=== PATIENT | male | born 1955 | race Caucasian/White ===

== ENCOUNTER 2018-05-07 11:07 | Emergency (ER) | payer MEDICARE, OTHER ==
[2018-05-07 11:16] VITALS: RESP 18
--- NOTE | 2018-05-07 11:17 | ED ---
Male Urogenital HPI - General Chief complaint: Urogenital Stated complaint: Male Time Seen by Provider: 05/07/18 11:13 Source: patient, RN notes reviewed, old records reviewed Mode of arrival: EMS - History of Present Illness Initial comments: This is a 63-year-old male the ER for evaluation patient presents ER for evaluation of blood in the urine. Patient does have history of MS with need for straight catheterization. He states that an every day think there is occasional occasions when his MS acts up or he thinks may be medication related. He denies any specific abdominal pain currently, he was straight cathetered today and had significant amount of blood in the urine, patient is on Plavix. Patient takes no other blood thinners. I without pain. He states he was able to urinate by himself prior to arrival in the emergency room MD Complaint: dysuria, other (Hematuria) -: hour(s) (1) Location: abdomen (With inability to urinate) Radiation: none Severity: mild Severity scale (1-10): 4 Quality: aching Improves with: urination Worsens with: none new medication Reports: denies other symptoms - Related Data Home Medications Medication Instructions Recorded Confirmed Atenolol [Tenormin] 25 mg PO BID 08/10/14 10/21/15 Clopidogrel [Plavix] 75 mg PO DAILY 08/10/14 10/21/15 Glatiramer Acetate [Copaxone] 40 mg SQ MOWEFR 08/10/14 10/21/15 Lisinopril [Zestril] 10 mg PO QAM 08/10/14 10/21/15 Simvastatin [Zocor] 20 mg PO HS 08/10/14 10/21/15 Finasteride [Proscar] 5 mg PO QAM 09/27/14 10/21/15 HYDROcodone/APAP 10-325MG [[place]udson 1 tab PO Q6H PRN 09/27/14 10/21/15 10-325] Aspirin 81 mg PO DAILY 10/21/15 10/21/15 Calcium Carbonate/Vitamin D3 1 tab PO DAILY 10/21/15 10/21/15 [Calcium 600-Vit D3 400 Tablet] Cholecalciferol [Vitamin D3] 1,000 unit PO DAILY 10/21/15 10/21/15 Dalfampridine [Ampyra] 10 mg PO Q12H 10/21/15 10/21/15 Previous Rx's Medication Instructions Recorded HYDROcodone/APAP 10-325MG [[place] 1 each PO Q6H PRN #10 tab 10/24/15 10-325] Ipratropium-Albuterol Nebulize 3 ml INHALATION RT-Q2H PRN #0 10/24/15 [Duoneb 0.5 mg-3 mg/3 ml Soln] ampul.neb Ipratropium-Albuterol Nebulize 3 ml INHALATION RT-QID ampul.neb 10/24/15 [Duoneb 0.5 mg-3 mg/3 ml Soln] Levofloxacin [Levaquin] 500 mg PO DAILY #7 tab 10/24/15 Nicotine 14Mg/24Hr Patch [Habitrol] 1 patch TRANSDERM DAILY patch 10/24/15 Tamsulosin HCl [Flomax] 0.4 mg PO HS #0 10/24/15 metFORMIN HCL [Glucophage Xr] 500 mg PO BID #0 10/24/15 predniSONE 10 mg PO DAILY #30 tab 10/24/15 Allergies Allergy/AdvReac Type Severity Reaction Status Date / Time ibuprofen AdvReac Nausea Verified 10/21/15 14:44 Review of Systems ROS Statement: Those systems with pertinent positive or pertinent negative responses have been documented in the HPI. ROS Other: All systems not noted in ROS Statement are negative. 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 Last Myocardial Infarction Date:: 2004 History of Any Multi-Drug Resistant Organisms: None Reported Past Surgical History: Heart Catheterization With Stent, Prostate Surgery Additional Past Surgical History / Comment(s): 2005 PTCA with 3 stents, laser cystoscopy/litotripsy with double J catheter insertion and eventual removal, cystoscopy/TURP, hemorhoids, L carpal tunnel release, colonoscopy, circumcism. Past Anesthesia/Blood Transfusion Reactions: No Reported Reaction Additional Past Anesthesia/Blood Transfusion Reaction / Comment(s): Pt states he has never received blood. Date of Last Stent Placement:: 2004 Past Psychological History: No Psychological Hx Reported Smoking Status: Current every day smoker - Past Family History Father Family Medical History: Cancer Additional Family Medical History / Comment(s): Father of leukemia at the age of 40 yrs. Mother Family Medical History: Diabetes Mellitus Additional Family Medical History / Comment(s): Mother is 83 yrs old. General Exam General appearance: alert, in no apparent distress Head exam: Present: atraumatic, normocephalic, normal inspection Eye exam: Present: normal appearance, PERRL, EOMI. Absent: scleral icterus, conjunctival injection, periorbital swelling ENT exam: Present: normal exam, mucous membranes moist Neck exam: Present: normal inspection. Absent: tenderness, meningismus, lymphadenopathy Respiratory exam: Present: normal lung sounds bilaterally. Absent: respiratory distress, wheezes, rales, rhonchi, stridor Cardiovascular Exam: Present: regular rate, normal rhythm, normal heart sounds. Absent: systolic murmur, diastolic murmur, rubs, gallop, clicks GI/Abdominal exam: Present: soft, normal bowel sounds. Absent: distended, tenderness, guarding, rebound, rigid Extremities exam: Present: normal inspection, full ROM, normal capillary refill. Absent: tenderness, pedal edema, joint swelling, calf tenderness Back exam: Present: normal inspection Neurological exam: Present: alert, oriented X3, CN II-XII intact Psychiatric exam: Present: normal affect, normal mood Skin exam: Present: warm, dry, intact, normal color. Absent: rash Course Vital Signs 05/07/18 11:10 Temperature 97.6 F Pulse Rate 68 Respiratory 18 Rate Blood Pressure 137/75 O2 Sat by Pulse 97 Oximetry - Reevaluation(s) Reevaluation #1: 05/07/18 11:55 Patient has medical history that is reviewed Patient is catheterized here in the ER Reevaluation #2: 05/07/18 12:42 A she catheterized here without incident, Payton was placed no significant output about 200cc , patient has no pain , no blood, Medical Decision Making - Medical Decision Making 61 female the ER for evaluation of hematuria. No UTI, no blood in the urine currently. No abdominal pain. No significant retention. Patient can be discharged home to continue follow-up appointment with urology on Tuesday Disposition Clinical Impression: Payton catheter problem, Urinary retention, Hematuria Disposition: HOME SELF-CARE Condition: Good Instructions: Hematuria (ED), Urinary Retention in Men (ED) Is patient prescribed a controlled substance at d/c from ED?: No Referrals: Logan Brumfield MD [Primary Care Provider] - 1-2 days
[2018-05-07 12:44] LABS: Appearance,Urine Cloudy (Clear); Bacteria,Urine Rare /hpf; Bilirubin,Urine Negative (Negative); Blood,Urine Large (Negative); Color,Urine Yellow; Glucose,Urine (UA) 4+ (Negative); Ketones,Urine Negative (Negative); Leukocyte Esterase,Urine Large (Negative); Mucus,Urine Rare /hpf; Nitrite,Urine Negative (Negative); PH, Urine 7.5 (5.0-8.0); Protein,Urine 1+ (Negative); RBC,Urine >182 /hpf (0-5); Squamous Epithelial Cell,Urine <1 /hpf (0-4); Urobilinogen,Urine <2.0 mg/dL (<2.0); WBC,Urine >182 /hpf (0-5)
[2018-05-07] MEDS ORDERED: CEPHALEXIN 500 MG CAP PO STA (12:54)
[2018-05-07] MEDS ORDERED: CEPHALEXIN 500MG STARTER PACK 4 CAP BTL PO STA (12:54)
[2018-05-07] MEDS ORDERED: CIPROFLOXACIN HCL 500 MG TAB PO STA (12:55)
[2018-05-07 13:29] VITALS: BP 124/75; PULSE 65; TEMP 97.9
== END 2018-05-07 14:27 | disposition home or self-care (01) ==
LOC: EC 11:07
DX: T83.83XA Hemorrhage due to genitourinary prosthetic devices, implants and grafts, initial encounter (principal); R31.9 Hematuria, unspecified; E78.5 Hyperlipidemia, unspecified; G35 Multiple sclerosis; G89.29 Other chronic pain; I10 Essential (primary) hypertension; I25.2 Old myocardial infarction; M19.90 Unspecified osteoarthritis, unspecified site; F17.200 Nicotine dependence, unspecified, uncomplicated; Z79.82 Long term (current) use of aspirin; Z79.899 Other long term (current) drug therapy; Z79.02 Long term (current) use of antithrombotics/antiplatelets; Z88.6 Allergy status to analgesic agent; Z87.440 Personal history of urinary (tract) infections; Z87.442 Personal history of urinary calculi; Z87.438 Personal history of other diseases of male genital organs; Z95.5 Presence of coronary angioplasty implant and graft; Z99.3 Dependence on wheelchair; Z98.890 Other specified postprocedural states; Y83.8 Other surgical procedures as the cause of abnormal reaction of the patient, or of later complication, without mention of misadventure at the time of the procedure
CPT/HCPCS: 51702; 51798; 81001; 87077; 87086; 87186; 99285

== ENCOUNTER 2018-05-22 02:43 | Inpatient (IN) | payer MEDICARE, OTHER ==
--- NOTE | 2018-05-22 02:57 | ED ---
General Adult HPI - General Chief complaint: Urogenital Stated complaint: Abd Pain Time Seen by Provider: 05/22/18 02:54 Source: patient, EMS Mode of arrival: EMS Limitations: no limitations - History of Present Illness Initial comments: 63-year-old male past medical history of multiple sclerosis- wheelchair-bound with no use of lower extremities, [id number] diabetes, history of prostate obstruction history of urinary retention has a chronic Payton with history of chronic UTIs presenting today for chief complaint of bladder pressure /pain x 2-3 days. Patient states that he was recently diagnosed with a urinary tract infection and a set of having indwelling Payton catheter, he has been straight cathed the past 2-3 days. Patient states every time history is is straight cathed he experiences midline bladder pressure and pain. Patient states that today the pain increased and appeared more constant following the straight catheterization. Patient states the pain is midline lower pelvic at the area of the bladder. It is tender to palpation. Patient states that is better in certain positions including with the right leg bent toward chest. Due to severity of pain patient was transferred via EMS from [facility] where he resides is a permanent resident. Upon arrival patient vital signs stable, afebrile. - Related Data Home Medications Medication Instructions Recorded Confirmed Atenolol [Tenormin] 25 mg PO DAILY@0600 08/10/14 05/22/18 Clopidogrel [Plavix] 75 mg PO DAILY@0600 08/10/14 05/22/18 Glatiramer Acetate [Copaxone] 40 mg SQ MOWEFR@1700 08/10/14 05/22/18 Finasteride [Proscar] 5 mg PO DAILY@0600 09/27/14 05/22/18 Acetaminophen Tab [Tylenol Tab] 500 mg PO Q6H PRN 05/22/18 05/22/18 Acetaminophen [Tylenol Arthritis] 650 mg PO DAILY@1100 05/22/18 05/22/18 Aspirin 81 mg PO HS 05/22/18 05/22/18 Baclofen (Unknown Dose) 1 tab PO HS 05/22/18 05/22/18 Bisacodyl [Dulcolax] 10 mg RECTAL Q72H PRN 05/22/18 05/22/18 Calcium Carbonate/Vitamin D3 1 tab PO HS 05/22/18 05/22/18 [Calcium 600-Vit D3 200 Tablet] Cholecalciferol (Vitamin D3) 2,000 unit PO DAILY 05/22/18 05/22/18 [Vitamin D3] Citalopram Hydrobromide [CeleXA] 10 mg PO DAILY@0600 05/22/18 05/22/18 Insulin Detemir [Levemir] 20 unit SQ HS 05/22/18 05/22/18 Insulin Detemir [Levemir] 30 unit SQ DAILY 05/22/18 05/22/18 Ipratropium-Albuterol Nebulize 3 ml INHALATION RT-Q2H PRN 05/22/18 05/22/18 [Duoneb 0.5 mg-3 mg/3 ml Soln] Lisinopril [Prinivil] 5 mg PO DAILY@0600 05/22/18 05/22/18 Mylanta 20 ml PO Q4H PRN 05/22/18 05/22/18 Naproxen Sodium [Aleve] 220 mg PO BID@0600,1800 05/22/18 05/22/18 Omeprazole 20 mg PO DAILY 05/22/18 05/22/18 Point Relief Gel 1 applic TOPICAL QID PRN 05/22/18 05/22/18 Pravastatin Sodium [Pravachol] 40 mg PO HS 05/22/18 05/22/18 Sennosides/Docusate Sodium 1 tab PO DAILY@0630 05/22/18 05/22/18 [Senna-S Laxative Tablet] Tamsulosin HCl [Flomax] 0.4 mg PO BID 05/22/18 05/22/18 Triamcinolone 0.5% Cream [Kenalog 1 applic TOPICAL BID 05/22/18 05/22/18 0.5% Cream] metFORMIN HCL [Glucophage Xr] 1,000 mg PO DAILY@0600 05/22/18 05/22/18 Allergies Allergy/AdvReac Type Severity Reaction Status Date / Time ibuprofen AdvReac Nausea Verified 05/22/18 06:51 Review of Systems ROS Statement: Those systems with pertinent positive or pertinent negative responses have been documented in the HPI. ROS Other: All systems not noted in ROS Statement are negative. Constitutional: Denies: fever, chills, night sweats ENT: Denies: ear pain, throat pain Respiratory: Denies: cough, dyspnea, wheezes, hemoptysis, stridor Cardiovascular: Denies: chest pain, palpitations Endocrine: Denies: fatigue Gastrointestinal: Reports: abdominal pain. Denies: nausea, vomiting, diarrhea, constipation, hematemesis, melena, hematochezia Genitourinary: Reports: hematuria (noted darker urine than normal). 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 Last Myocardial Infarction Date:: 2004 History of Any Multi-Drug Resistant Organisms: None Reported Past Surgical History: Heart Catheterization With Stent, Prostate Surgery Additional Past Surgical History / Comment(s): 2005 PTCA with 3 stents, laser cystoscopy/litotripsy with double J catheter insertion and eventual removal, cystoscopy/TURP, hemorhoids, L carpal tunnel release, colonoscopy, circumcism. Past Anesthesia/Blood Transfusion Reactions: No Reported Reaction Additional Past Anesthesia/Blood Transfusion Reaction / Comment(s): Pt states he has never received blood. Date of Last Stent Placement:: 2004 Past Psychological History: No Psychological Hx Reported Smoking Status: Current every day smoker - Past Family History Father Family Medical History: Cancer Additional Family Medical History / Comment(s): Father of leukemia at the age of 40 yrs. Mother Family Medical History: Diabetes Mellitus Additional Family Medical History / Comment(s): Mother is 83 yrs old. General Exam - General Exam Comments Initial Comments: General: The patient is awake and alert, in no distress, and does not appear acutely ill. Eye: Pupils are equal, round and reactive to light, extra-ocular movements are intact. No nystagmus. There is normal conjunctiva bilaterally. No signs of icterus. Ears, nose, mouth and throat: There are moist mucous membranes and no oral lesions. Neck: The neck is supple, there is no tenderness or JVD. Cardiovascular: There is a regular rate and rhythm. No murmur, rub or gallop is appreciated. Respiratory: Lungs are clear to auscultation, respirations are non-labored, breath sounds are equal. No wheezes, stridor, rales, or rhonchi. Gastrointestinal: No noted diaphoresis, jaundice, pallor, protecting postures or squirming. Symmetrical pigmentation of abdomen without signs of inflammation, or striae. Umbilicus mildline, inverted without swelling. No dilated veins. Abdomen contour obese, no noted abdominal distention. No visible masses. No peristalsis , aortic pulsations, or ventral hernia. Bowel sounds audible in all 4 quadrants , unremarkable. No friction rubs or venous hums. No epigastic, hepatic or abdominal bruits. Tender to palpation midline over bladder, no other areas of tenderness- no rigidity or guarding. Liver edge, not palpable. Spleen edge, right and left kidney not palpable. Superior bladder margin tender. Special Testing: Negative shifting dullness, fluid wave, [place], [place], [place], [place], cutaneous hyperesthesia. Iliopsoas and obturator tests negative bilaterally. Negative Heel Jar test/jaylene sign. No CVA tenderness. Digital rectal exam deferred. Negative jha turners or cullens sign Musculoskeletal: Normal ROM, no tenderness. Strength 0/5 LE b/l. Sensation intact of the UE, Pulses equal bilaterally 2+. Neurological: A&O x 3. CN II-XII intact, There are no obvious motor or sensory deficits. Coordination appears grossly intact. Speech is normal. Skin: Skin is warm and dry and no rashes or lesions are noted. Psychiatric: Cooperative, appropriate mood & affect, normal judgment. Limitations: no limitations Course Vital Signs 05/22/18 05/22/18 05/22/18 02:46 06:24 07:26 Temperature 97.7 F 98.2 F 97.7 F Pulse Rate 93 88 74 Respiratory 16 16 18 Rate Blood Pressure 125/78 123/84 136/92 O2 Sat by Pulse 98 98 97 Oximetry Medical Decision Making - Medical Decision Making Patient WBW elevated at 12.3. Vital signs stable. CT of the abdomen and pelvis reveals left renal pelvis no evidence of obstruction, there is also distended proximal small bowel most likely small bowel ileus. Redemonstration of 3.3 cm aneurysm of lower abdominal aorta there is no significant change with comparison from last study. There is new mild atelectasis in lung bases compared to old exam. Remainder of findings unremarkable. All findings were discussed with patient. Urinalysis revealed an anxious concerning for urinary tract infection. Patient was given 1 g Rocephin. At this time I feel patient should be admitted for treatment of urinary tract infection, and complaints of bladder distention/pain management. Patient's vital signs stable, afebrile overall patient appears nontoxic/nonseptic. Blood culture pending. Lactic (-). Patient was admitted to Dr. Silverio after discussing case in detail with Dr. Khan who agreed with impression and plan. Pt transferred to floor in stable condition, given morphine, IV fluids in ED for pain mgmt, pt stated this helped with symptoms. - Lab Data Result diagrams: 05/22/18 03:06 05/22/18 03:06 Lab Results 05/22/18 05/22/18 05/22/18 Range/Units 03:06 03:06 03:06 WBC 12.7 H (3.8-10.6) k/uL RBC 5.63 (4.30-5.90) m/uL Hgb 15.6 (13.0-17.5) gm/dL Hct 48.9 (39.0-53.0) % MCV 86.8 (80.0-100.0) fL MCH 27.7 (25.0-35.0) pg MCHC 31.9 (31.0-37.0) g/dL RDW 14.0 (11.5-15.5) % Plt Count 243 (150-450) k/uL Neutrophils % 75 % Lymphocytes % 16 % Monocytes % 5 % Eosinophils % 2 % Basophils % 0 % Neutrophils # 9.5 H (1.3-7.7) k/uL Lymphocytes # 2.0 (1.0-4.8) k/uL Monocytes # 0.6 (0-1.0) k/uL Eosinophils # 0.2 (0-0.7) k/uL Basophils # 0.1 (0-0.2) k/uL Sodium 135 L (137-145) mmol/L Potassium 5.2 H (3.5-5.1) mmol/L Chloride 106 (98-107) mmol/L Carbon Dioxide 19 L (22-30) mmol/L Anion Gap 10 mmol/L BUN 32 H (9-20) mg/dL Creatinine 0.84 (0.66-1.25) mg/dL Est GFR (CKD-EPI)AfAm >90 (>60 ml/min/1.73 sqM) Est GFR (CKD-EPI)NonAf >90 (>60 ml/min/1.73 sqM) Glucose 225 H (74-99) mg/dL Plasma Lactic Acid Andi 1.8 (0.7-2.0) mmol/L Calcium 10.1 (8.4-10.2) mg/dL Total Bilirubin 0.7 (0.2-1.3) mg/dL AST 17 (17-59) U/L ALT 33 (21-72) U/L Alkaline Phosphatase 93 (38-126) U/L Total Protein 7.2 (6.3-8.2) g/dL Albumin 3.8 (3.5-5.0) g/dL Urine Color Urine Appearance (Clear) Urine pH (5.0-8.0) Ur Specific [place] (1.001-1.035) Urine Protein (Negative) Urine Glucose (UA) (Negative) Urine Ketones (Negative) Urine Blood (Negative) Urine Nitrite (Negative) Urine Bilirubin (Negative) Urine Urobilinogen (<2.0) mg/dL Ur Leukocyte Esterase (Negative) Urine RBC (0-5) /hpf Urine WBC (0-5) /hpf Urine WBC Clumps (None) /hpf Ur Squamous Epith Cells (0-4) /hpf Urine Bacteria (None) /hpf 05/22/18 Range/Units 03:06 WBC (3.8-10.6) k/uL RBC (4.30-5.90) m/uL Hgb (13.0-17.5) gm/dL Hct (39.0-53.0) % MCV (80.0-100.0) fL MCH (25.0-35.0) pg MCHC (31.0-37.0) g/dL RDW (11.5-15.5) % Plt Count (150-450) k/uL Neutrophils % % Lymphocytes % % Monocytes % % Eosinophils % % Basophils % % Neutrophils # (1.3-7.7) k/uL Lymphocytes # (1.0-4.8) k/uL Monocytes # (0-1.0) k/uL Eosinophils # (0-0.7) k/uL Basophils # (0-0.2) k/uL Sodium (137-145) mmol/L Potassium (3.5-5.1) mmol/L Chloride (98-107) mmol/L Carbon Dioxide (22-30) mmol/L Anion Gap mmol/L BUN (9-20) mg/dL Creatinine (0.66-1.25) mg/dL Est GFR (CKD-EPI)AfAm (>60 ml/min/1.73 sqM) Est GFR (CKD-EPI)NonAf (>60 ml/min/1.73 sqM) Glucose (74-99) mg/dL Plasma Lactic Acid Andi (0.7-2.0) mmol/L Calcium (8.4-10.2) mg/dL Total Bilirubin (0.2-1.3) mg/dL AST (17-59) U/L ALT (21-72) U/L Alkaline Phosphatase (38-126) U/L Total Protein (6.3-8.2) g/dL Albumin (3.5-5.0) g/dL Urine Color Yellow Urine Appearance Cloudy (Clear) Urine pH 6.0 (5.0-8.0) Ur Specific [place] 1.024 (1.001-1.035) Urine Protein 2+ H (Negative) Urine Glucose (UA) 4+ H (Negative) Urine Ketones Negative (Negative) Urine Blood Moderate H (Negative) Urine Nitrite Positive (Negative) Urine Bilirubin Negative (Negative) Urine Urobilinogen <2.0 (<2.0) mg/dL Ur Leukocyte Esterase Large H (Negative) Urine RBC >182 H (0-5) /hpf Urine WBC >182 H (0-5) /hpf Urine WBC Clumps Rare H (None) /hpf Ur Squamous Epith Cells 1 (0-4) /hpf Urine Bacteria Rare H (None) /hpf Disposition Clinical Impression: Urinary tract infection Disposition: ADMITTED IP TO THIS HOSP Is patient prescribed a controlled substance at d/c from ED?: No Time of Disposition: 06:01 Decision to Admit Reason: Admit from EC Decision Date: 05/22/18 Decision Time: 06:05
[2018-05-22] MEDS ORDERED: HYDROcodone/APAP 5-325MG 1 EACH TAB PO STA (03:12)
[2018-05-22] MEDS ORDERED: MORPHINE SULFATE 4 MG/ML SYRINGE IVP STA (03:44)
[2018-05-22] MEDS ORDERED: MORPHINE SULFATE/PF 10MG/10ML VL IVP STA (03:44)
[2018-05-22] MEDS: MORPHINE SULFATE 4 MG/ML SYRINGE IVP PRN (03:50)
[2018-05-22 04:21] LABS: ALT 33 U/L (21-72); AST 17 U/L (17-59); Albumin 3.8 g/dL (3.5-5.0); Alkaline Phosphatase 93 U/L (38-126); Anion Gap 10 mmol/L; Blood Urea Nitrogen 32 mg/dL (9-20); Calcium 10.1 mg/dL (8.4-10.2); Carbon Dioxide 19 mmol/L (22-30); Chloride 106 mmol/L (98-107); Glucose 225 mg/dL (74-99); Potassium 5.2 mmol/L (3.5-5.1); Sodium 135 mmol/L (137-145); Total Bilirubin 0.7 mg/dL (0.2-1.3); Total Protein 7.2 g/dL (6.3-8.2)
[2018-05-22 04:25] LABS: Appearance,Urine Cloudy (Clear); Bacteria,Urine Rare /hpf; Bilirubin,Urine Negative (Negative); Blood,Urine Moderate (Negative); Color,Urine Yellow; Glucose,Urine (UA) 4+ (Negative); Ketones,Urine Negative (Negative); Leukocyte Esterase,Urine Large (Negative); Nitrite,Urine Positive (Negative); Protein,Urine 2+ (Negative); RBC,Urine >182 /hpf (0-5); Specific Gravity,Urine 1.024 (1.001-1.035); Squamous Epithelial Cell,Urine 1 /hpf (0-4); Urobilinogen,Urine <2.0 mg/dL (<2.0); WBC,Urine >182 /hpf (0-5)
[2018-05-22 04:35] LABS: Basophils # (A) 0.1 k/uL (0-0.2); Basophils % (A) 0 %; Eosinophils # (A) 0.2 k/uL (0-0.7); Eosinophils % (A) 2 %; HCT 48.9 % (39.0-53.0); HGB 15.6 gm/dL (13.0-17.5); Lymphocytes % (A) 16 %; MCH 27.7 pg (25.0-35.0); MCHC 31.9 g/dL (31.0-37.0); MCV 86.8 fL (80.0-100.0); Mean Platelet Volume 8.3; Monocytes # (A) 0.6 k/uL (0-1.0); Monocytes % (A) 5 %; Neutrophils # (A) 9.5 k/uL (1.3-7.7); Neutrophils % (A) 75 %; Platelet Count 243 k/uL (150-450); RBC 5.63 m/uL (4.30-5.90); WBC 12.7 k/uL (3.8-10.6)
[2018-05-22] MEDS ORDERED: SODIUM CHLORIDE 0.9% 1,000 ML IV ONE (04:57)
--- NOTE | 2018-05-22 05:35 | CT ---
EXAMINATION TYPE: CT abdomen pelvis w con DATE OF EXAM: 05/22/2018 COMPARISON: 10/21/2015 HISTORY: abdominal pain CT DLP: 564.5 mGycm Automated exposure control for dose reduction was used. TECHNIQUE: Helical acquisition of images was performed from the lung bases through the pelvis. CONTRAST: Performed without Oral Contrast and with IV Contrast, patient injected with 100mL mL of Isovue 300. FINDINGS: There is some mild atelectasis at the lung bases. There is no pleural effusion. There is no pericardi al effusion. Liver shows no focal defect. Gallbladder appears normal. Bile ducts are not dilated. Spleen appears n ormal. There is hiatal hernia noted. The stomach is otherwise normal. There is no evidence of pancrea tic mass. There is no adrenal mass. Kidneys show satisfactory contrast opacification. There is no hydronephrosi s. There is 1 cm calculus in the left renal pelvis. Ureters are not dilated. There is no retroperiton eal adenopathy. Abdominal aorta is atheromatous with variable plaque formation. There is mild aneurys m of the lower abdominal aorta that measures up to 3.3 cm. There is Espinosa catheter in the urinary bladder. There is no inguinal hernia. There are a few sigmoid diverticula. There is no sign of diverticulitis. Appendix appears normal. I see no intestinal wall th ickening. There is no evidence of a bowel obstruction. There are a few distended small bowel loops in the left upper quadrant. These measure up to 3 cm. There is no mesenteric edema or adenopathy. There is subcutaneous density over the anterior abdomen that could be from injection sites. Lumbar spine i s intact. I see no bony destructive process. Bony pelvis is intact. IMPRESSION: THERE IS A CALCULUS IN THE LEFT RENAL PELVIS WITHOUT EVIDENCE OF OBSTRUCTION. THIS APPEARS NEW COMPAR ED TO OLD EXAM. THERE IS DISTENDED PROXIMAL SMALL BOWEL. NO TRANSITION POINT SEEN. THIS COULD RELATE TO SMALL BOWEL I LEUS. 3.3 CM ANEURYSM OF THE LOWER ABDOMINAL AORTA. NO SIGNIFICANT CHANGE. There is new mild atelectasis at the lung bases compared to old exam.
[2018-05-22] MEDS ORDERED: ACETAMINOPHEN TAB 325 MG TAB PO PRN (06:05)
[2018-05-22] MEDS ORDERED: NALOXONE 0.4 MG/ML 1 ML VIAL IV PRN (06:05)
[2018-05-22] MEDS: SODIUM CHLORIDE 0.9% 1,000 ML IV SCH (06:17)
[2018-05-22] MEDS ORDERED: ACETAMINOPHEN TAB 500 MG TAB PO PRN (08:20)
[2018-05-22] MEDS ORDERED: IPRATROPIUM-ALBUTEROL 3 ML NEB INHALATION PRN (08:20)
[2018-05-22] MEDS ORDERED: [UNRECOGNIZED DRUG - OTHER] TOPICAL PRN (08:20)
[2018-05-22] MEDS ORDERED: MAG HYDROX/AL HYDROX/SIMETH 30 ML CUP PO PRN (08:20)
[2018-05-22] MEDS ORDERED: BISACODYL 10 MG SUPP RECTAL PRN (08:20)
[2018-05-22] MEDS: MORPHINE SULFATE 4 MG/ML SYRINGE IV PRN ×4 (09:12→22:19)
[2018-05-22] MEDS: NAPROXEN 250 MG TAB PO SCH ×2 (09:13→17:29)
[2018-05-22] MEDS: PANTOPRAZOLE 40 MG TABLET PO SCH (09:14)
[2018-05-22] MEDS: TRIAMCINOLONE ACET 0.5% CREAM 15 GM TUBE TOPICAL SCH ×2 (09:14→22:25)
[2018-05-22] MEDS: TAMSULOSIN 0.4 MG CAP.ER.24H PO SCH ×2 (09:14→22:02)
[2018-05-22] MEDS: CHOLECALCIFEROL 1,000 UNIT TAB PO SCH (09:14)
[2018-05-22] MEDS: INSULIN DETEMIR 100 UNIT/ML 10 ML VIAL SQ SCH ×2 (09:36→22:23)
--- NOTE | 2018-05-22 11:30 | P.HPIM ---
History of Present Illness H&P Date: 05/22/18 Chief Complaint: Urinary tract infection This is 63-year-old male patient who presented to the emergency room with complaints of a urinary tract infection with significant abdominal pain. Patient currently less than cell is to his disability with multiple sclerosis. Patient is bedbound. Patient has past medical history of recurrent UTIs has required straight cath for the past few weeks. Patient has past medical history of multiple sclerosis, diabetes mellitus, hypertension, myocardial infarction, osteoarthritis, heart cath with stents, , renal disorder, GERD and COPD. CT of abdomen completed showing This in the left renal pelvis without evidence of obstruction. This appears new compared to old exam. There is distended proximal small bowel. No transition been seen. This could relate to small bowel ileus. 3.3 cm aneurysm of the left lower abdominal aorta. No significant change. There is new mild atelectasis the lung base compared to old exam. Urinary analysis positive for leukocyte esterase. Urine culture has been ordered. Blood culture ordered. Dr. Bedoya consulted for urology. At this time patient denies chest pain or shortness of breath. Patient denies nausea vomiting or diarrhea. Patient is still complaining of some abdominal pain. Fully catheter is in place. 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 Last Myocardial Infarction Date:: 2004 History of Any Multi-Drug Resistant Organisms: None Reported Past Surgical History: Heart Catheterization With Stent, Prostate Surgery Additional Past Surgical History / Comment(s): 2004 PTCA with 3 stents, laser cystoscopy/litotripsy with double J catheter insertion and eventual removal, cystoscopy/TURP, hemorhoids, L carpal tunnel release, colonoscopy, circumcism. Past Anesthesia/Blood Transfusion Reactions: No Reported Reaction Additional Past Anesthesia/Blood Transfusion Reaction / Comment(s): Pt states he has never received blood. Date of Last Stent Placement:: 2004 Smoking Status: Current every day smoker - Past Family History Father Family Medical History: Cancer Additional Family Medical History / Comment(s): Father of leukemia at the age of 40 yrs. Mother Family Medical History: Diabetes Mellitus Additional Family Medical History / Comment(s): Mother is 83 yrs old. Medications and Allergies Home Medications Medication Instructions Recorded Confirmed Type Atenolol [Tenormin] 25 mg PO DAILY@0600 08/10/14 05/22/18 History Clopidogrel [Plavix] 75 mg PO DAILY@0600 08/10/14 05/22/18 History Glatiramer Acetate [Copaxone] 40 mg SQ MOWEFR@1700 08/10/14 05/22/18 History Finasteride [Proscar] 5 mg PO DAILY@0600 09/27/14 05/22/18 History Acetaminophen Tab [Tylenol Tab] 500 mg PO Q6H PRN 05/22/18 05/22/18 History Acetaminophen [Tylenol Arthritis] 650 mg PO DAILY@1100 05/22/18 05/22/18 History Aspirin 81 mg PO HS 05/22/18 05/22/18 History Baclofen (Unknown Dose) 1 tab PO HS 05/22/18 05/22/18 History Bisacodyl [Dulcolax] 10 mg RECTAL Q72H PRN 05/22/18 05/22/18 History Calcium Carbonate/Vitamin D3 1 tab PO HS 05/22/18 05/22/18 History [Calcium 600-Vit D3 200 Tablet] Cholecalciferol (Vitamin D3) 2,000 unit PO DAILY 05/22/18 05/22/18 History [Vitamin D3] Citalopram Hydrobromide [CeleXA] 10 mg PO DAILY@0600 05/22/18 05/22/18 History Insulin Detemir [Levemir] 20 unit SQ HS 05/22/18 05/22/18 History Insulin Detemir [Levemir] 30 unit SQ DAILY 05/22/18 05/22/18 History Ipratropium-Albuterol Nebulize 3 ml INHALATION RT-Q2H PRN 05/22/18 05/22/18 History [Duoneb 0.5 mg-3 mg/3 ml Soln] Lisinopril [Prinivil] 5 mg PO DAILY@0600 05/22/18 05/22/18 History Mylanta 20 ml PO Q4H PRN 05/22/18 05/22/18 History Naproxen Sodium [Aleve] 220 mg PO BID@0600,1800 05/22/18 05/22/18 History Omeprazole 20 mg PO DAILY 05/22/18 05/22/18 History Point Relief Gel 1 applic TOPICAL QID PRN 05/22/18 05/22/18 History Pravastatin Sodium [Pravachol] 40 mg PO HS 05/22/18 05/22/18 History Sennosides/Docusate Sodium 1 tab PO DAILY@0630 05/22/18 05/22/18 History [Senna-S Laxative Tablet] Tamsulosin HCl [Flomax] 0.4 mg PO BID 05/22/18 05/22/18 History Triamcinolone 0.5% Cream [Kenalog 1 applic TOPICAL BID 05/22/18 05/22/18 History 0.5% Cream] metFORMIN HCL [Glucophage Xr] 1,000 mg PO DAILY@0600 05/22/18 05/22/18 History Allergies Allergy/AdvReac Type Severity Reaction Status Date / Time ibuprofen AdvReac Nausea Verified 05/22/18 06:51 Physical Exam Vitals: Vital Signs Temp Pulse Pulse Resp BP BP Pulse Ox 05/22/18 08:35 98.0 F 87 16 130/76 94 L 05/22/18 07:26 97.7 F 74 18 136/92 97 05/22/18 06:24 98.2 F 88 16 123/84 98 05/22/18 02:46 97.7 F 93 16 125/78 98 Intake and Output 05/21/18 05/22/18 05/22/18 22:59 06:59 14:59 Intake Total 240 Balance 240 Intake: Oral 240 Other: Weight 77.111 kg Head normocephalic Neck supple Lungs clear to auscultation bilaterally no wheezing or crackles Heart regular rate and rhythm S1-S2, no rub or gallop Abdomen lower abdomen tenderness to palpation. Extremities no edema Neuro alert and orientated to 3 Results CBC & Chem 7: 05/22/18 03:06 05/22/18 03:06 Labs: Abnormal Lab Results - Last 24 Hours (Table) 05/22/18 05/22/18 05/22/18 Range/Units 03:06 03:06 03:06 WBC 12.7 H (3.8-10.6) k/uL Neutrophils # 9.5 H (1.3-7.7) k/uL Sodium 135 L (137-145) mmol/L Potassium 5.2 H (3.5-5.1) mmol/L Carbon Dioxide 19 L (22-30) mmol/L BUN 32 H (9-20) mg/dL Glucose 225 H (74-99) mg/dL Urine Protein 2+ H (Negative) Urine Glucose (UA) 4+ H (Negative) Urine Blood Moderate H (Negative) Ur Leukocyte Esterase Large H (Negative) Urine RBC >182 H (0-5) /hpf Urine WBC >182 H (0-5) /hpf Urine WBC Clumps Rare H (None) /hpf Urine Bacteria Rare H (None) /hpf Microbiology - Last 24 Hours (Table) 05/22/18 03:06 Urine Culture - Preliminary Urine,Catheterized Thrombosis Risk Factor Assmnt - Choose All That Apply Any of the Below Risk Factors Present?: Yes Each Factor Represents 1 point: Abnormal pulmonary function (COPD), Obesity ( BMI >25) Other Risk Factors: No Other congenital or acquired thrombophilia - If yes, enter type in comment: No Thrombosis Risk Factor Assessment Total Risk Factor Score: 2 Thrombosis Risk Factor Assessment Level: Low Risk Assessment and Plan Assessment: 1. Urinary tract infection. Urine culture has been ordered. Patient started on Rocephin. CT of abdomen completed showing Ileus in the left renal pelvis without evidence of obstruction. This appears new compared to old exam. There is distended proximal small bowel. No transition point seen. This could relate to small bowel ileus. 3.3 cm aneurysm of lower abdominal aorta. Significant change. There is mild atelectasis at the lung base that old exam. Espinosa catheter in is in place. Urology services have been consulted 2. History of multiple sclerosis. Patient is bedbound and resides [facility] 3. History of diabetes mellitus 4. Essential hypertension 5. Myocardial infarction with cardiac stent placement. Patient currently maintained on Plavix 6. History of COPD. No exacerbation at this time 7. Frequent UTIs. Patient does have history of cystoscopy/TURP 8. History of osteoarthritis 9. History of psoriasis 10. History of hyperlipidemia. DVT prophylaxis Lovenox. GI prophylaxis Protonix Time with Patient: Greater than 30 (Greater than 60% of the total time spent in counseling and coordination of care. I performed an examination of the patient and discussed their management with the Nurse Practitioner. I have reviewed the Nurse Practitioner's notes and agree with the documented findings and plan of care)
[2018-05-22 11:39] LABS: Glucose,Whole Blood 181 mg/dL (75-99)
--- NOTE | 2018-05-22 14:40 | P.GSCN ---
History of Present Illness Consult date: 05/22/18 History of present illness: This is a 63-year-old gentleman with advanced multiple sclerosis over the last 20 years who comes in the hospital with a probable urinary tract infection. The patient is known to for his neurogenic bladder secondary to his MS. Over the last several weeks he has had problems were he has not been able to empty his bladder. He has required occasional intermittent catheterization at the [facility]. Over the last week it is several times a day. Apparently his developed suprapubic bladder pain. He [facility] He is admitted for urinary tract infection. The patient has not been able to urinate at all. There is been no exacerbation of his MS. He has an indwelling catheter draining cloudy urine. Review of Systems - Constitutional Reports weakness - Gastrointestinal Reports as per HPI - Genitourinary Reports as per HPI - Musculoskeletal Musculoskeleta Comment(s): The patient is completely bedridden. 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 Last Myocardial Infarction Date:: 2004 History of Any Multi-Drug Resistant Organisms: None Reported Past Surgical History: Heart Catheterization With Stent, Prostate Surgery Additional Past Surgical History / Comment(s): 2004 PTCA with 3 stents, laser cystoscopy/litotripsy with double J catheter insertion and eventual removal, cystoscopy/TURP, hemorhoids, L carpal tunnel release, colonoscopy, circumcism. Past Anesthesia/Blood Transfusion Reactions: No Reported Reaction Additional Past Anesthesia/Blood Transfusion Reaction / Comm: Pt states he has never received blood. Date of Last Stent Placement:: 2004 Smoking Status: Current every day smoker - Past Family History Father Family Medical History: Cancer Additional Family Medical History / Comment(s): Father of leukemia at the age of 40 yrs. Mother Family Medical History: Diabetes Mellitus Additional Family Medical History / Comment(s): Mother is 83 yrs old. Medications and Allergies Home Medications Medication Instructions Recorded Confirmed Type Atenolol [Tenormin] 25 mg PO DAILY@0600 08/10/14 05/22/18 History Clopidogrel [Plavix] 75 mg PO DAILY@0600 08/10/14 05/22/18 History Glatiramer Acetate [Copaxone] 40 mg SQ MOWEFR@1700 08/10/14 05/22/18 History Finasteride [Proscar] 5 mg PO DAILY@0600 09/27/14 05/22/18 History Acetaminophen Tab [Tylenol Tab] 500 mg PO Q6H PRN 05/22/18 05/22/18 History Acetaminophen [Tylenol Arthritis] 650 mg PO DAILY@1100 05/22/18 05/22/18 History Aspirin 81 mg PO HS 05/22/18 05/22/18 History Baclofen (Unknown Dose) 1 tab PO HS 05/22/18 05/22/18 History Bisacodyl [Dulcolax] 10 mg RECTAL Q72H PRN 05/22/18 05/22/18 History Calcium Carbonate/Vitamin D3 1 tab PO HS 05/22/18 05/22/18 History [Calcium 600-Vit D3 200 Tablet] Cholecalciferol (Vitamin D3) 2,000 unit PO DAILY 05/22/18 05/22/18 History [Vitamin D3] Citalopram Hydrobromide [CeleXA] 10 mg PO DAILY@0600 05/22/18 05/22/18 History Insulin Detemir [Levemir] 20 unit SQ HS 05/22/18 05/22/18 History Insulin Detemir [Levemir] 30 unit SQ DAILY 05/22/18 05/22/18 History Ipratropium-Albuterol Nebulize 3 ml INHALATION RT-Q2H PRN 05/22/18 05/22/18 History [Duoneb 0.5 mg-3 mg/3 ml Soln] Lisinopril [Prinivil] 5 mg PO DAILY@0600 05/22/18 05/22/18 History Mylanta 20 ml PO Q4H PRN 05/22/18 05/22/18 History Naproxen Sodium [Aleve] 220 mg PO BID@0600,1800 05/22/18 05/22/18 History Omeprazole 20 mg PO DAILY 05/22/18 05/22/18 History Point Relief Gel 1 applic TOPICAL QID PRN 05/22/18 05/22/18 History Pravastatin Sodium [Pravachol] 40 mg PO HS 05/22/18 05/22/18 History Sennosides/Docusate Sodium 1 tab PO DAILY@0630 05/22/18 05/22/18 History [Senna-S Laxative Tablet] Tamsulosin HCl [Flomax] 0.4 mg PO BID 05/22/18 05/22/18 History Triamcinolone 0.5% Cream [Kenalog 1 applic TOPICAL BID 05/22/18 05/22/18 History 0.5% Cream] metFORMIN HCL [Glucophage Xr] 1,000 mg PO DAILY@0600 05/22/18 05/22/18 History Allergies Allergy/AdvReac Type Severity Reaction Status Date / Time ibuprofen AdvReac Nausea Verified 05/22/18 06:51 Surgical - Exam Vital Signs Temp Pulse Resp BP Pulse Ox 97.7 F 93 16 125/78 98 05/22/18 02:46 05/22/18 02:46 05/22/18 02:46 05/22/18 02:46 05/22/18 02:46 - General well developed, well nourished, no distress - Eyes PERRL - ENT no hearing loss - Neck trachea midline - Respiratory normal expansion, normal respiratory effort - Cardiovascular Rhythm: regular - Abdomen Abdomen: soft, non tender - Genitourinary There is an indwelling catheter draining cloudy urine penis testicles epididymides unremarkable. - Musculoskeletal Patient is bedridden. The lower extremities are contracted - Psychiatric oriented to time, oriented to person, oriented to place, speech is normal, memory intact Results - Labs 05/22/18 03:06 05/22/18 03:06 Abnormal Lab Results - Last 24 Hours (Table) 05/22/18 05/22/18 05/22/18 Range/Units 03:06 03:06 03:06 WBC 12.7 H (3.8-10.6) k/uL Neutrophils # 9.5 H (1.3-7.7) k/uL Sodium 135 L (137-145) mmol/L Potassium 5.2 H (3.5-5.1) mmol/L Carbon Dioxide 19 L (22-30) mmol/L BUN 32 H (9-20) mg/dL Glucose 225 H (74-99) mg/dL POC Glucose (mg/dL) (75-99) mg/dL Urine Protein 2+ H (Negative) Urine Glucose (UA) 4+ H (Negative) Urine Blood Moderate H (Negative) Ur Leukocyte Esterase Large H (Negative) Urine RBC >182 H (0-5) /hpf Urine WBC >182 H (0-5) /hpf Urine WBC Clumps Rare H (None) /hpf Urine Bacteria Rare H (None) /hpf 05/22/18 Range/Units 11:29 WBC (3.8-10.6) k/uL Neutrophils # (1.3-7.7) k/uL Sodium (137-145) mmol/L Potassium (3.5-5.1) mmol/L Carbon Dioxide (22-30) mmol/L BUN (9-20) mg/dL Glucose (74-99) mg/dL POC Glucose (mg/dL) 181 H (75-99) mg/dL Urine Protein (Negative) Urine Glucose (UA) (Negative) Urine Blood (Negative) Ur Leukocyte Esterase (Negative) Urine RBC (0-5) /hpf Urine WBC (0-5) /hpf Urine WBC Clumps (None) /hpf Urine Bacteria (None) /hpf Microbiology - Last 24 Hours (Table) 05/22/18 03:06 Urine Culture - Preliminary Urine,Catheterized Diabetes panel 05/22/18 Range/Units 03:06 Sodium 135 L (137-145) mmol/L Potassium 5.2 H (3.5-5.1) mmol/L Chloride 106 (98-107) mmol/L Carbon Dioxide 19 L (22-30) mmol/L BUN 32 H (9-20) mg/dL Creatinine 0.84 (0.66-1.25) mg/dL Glucose 225 H (74-99) mg/dL Calcium 10.1 (8.4-10.2) mg/dL AST 17 (17-59) U/L ALT 33 (21-72) U/L Alkaline Phosphatase 93 (38-126) U/L Total Protein 7.2 (6.3-8.2) g/dL Albumin 3.8 (3.5-5.0) g/dL Calcium panel 05/22/18 Range/Units 03:06 Calcium 10.1 (8.4-10.2) mg/dL Albumin 3.8 (3.5-5.0) g/dL Pituitary panel 05/22/18 Range/Units 03:06 Sodium 135 L (137-145) mmol/L Potassium 5.2 H (3.5-5.1) mmol/L Chloride 106 (98-107) mmol/L Carbon Dioxide 19 L (22-30) mmol/L BUN 32 H (9-20) mg/dL Creatinine 0.84 (0.66-1.25) mg/dL Glucose 225 H (74-99) mg/dL Calcium 10.1 (8.4-10.2) mg/dL Adrenal panel 05/22/18 Range/Units 03:06 Sodium 135 L (137-145) mmol/L Potassium 5.2 H (3.5-5.1) mmol/L Chloride 106 (98-107) mmol/L Carbon Dioxide 19 L (22-30) mmol/L BUN 32 H (9-20) mg/dL Creatinine 0.84 (0.66-1.25) mg/dL Glucose 225 H (74-99) mg/dL Calcium 10.1 (8.4-10.2) mg/dL Total Bilirubin 0.7 (0.2-1.3) mg/dL AST 17 (17-59) U/L ALT 33 (21-72) U/L Alkaline Phosphatase 93 (38-126) U/L Total Protein 7.2 (6.3-8.2) g/dL Albumin 3.8 (3.5-5.0) g/dL Assessment and Plan Assessment: Impression: Neurogenic bladder with urine retention. Probable urinary tract infection. Recommendations: He is getting antibiotics. Cultures and hopefully of been obtained. Adjusted his catheter make sure that it was in. I will notify of his admission so he can discuss with this patient long-term bladder management which probably will be an indwelling catheter.
[2018-05-22] MEDS: Glatiramer Acetate [Copaxone] SQ SCH (17:28)
[2018-05-22] MEDS: metFORMIN 500 MG TAB PO SCH (17:29)
[2018-05-22 17:33] LABS: Glucose,Whole Blood 186 mg/dL (75-99)
--- NOTE | 2018-05-22 19:09 | P.GSCN ---
History of Present Illness Consult date: 05/22/18 Reason for Consult: Abdominal pain History of present illness: Patient comes in the hospital complaining of abdominal pain. He has had issues with neurogenic bladder related to multiple sclerosis. Patient was recently having to catheterize for urinary function. He had a recent Espinosa catheter placed. Describes his pain as being in the suprapubic region. He thinks is related to his MS. Patient is tolerating a regular diet. No change in appetite. Good bowel function. Recent CAT scan shows no definite inflammatory changes. Review of Systems The patient denies any acute changes in vision or hearing, no dysphagia or odynophagia, no chest pain or shortness of breath, no hematuria, no headache, no runny nose, no rectal bleeding or melena, no unexplained weight loss Past Medical History Past Medical History: COPD, Diabetes Mellitus, GERD/Reflux, Hyperlipidemia, Hypertension, Myocardial Infarction (NE), Musculoskeletal Disorder, Neurologic Disorder, Osteoarthritis (OA), Renal Disease, Skin Disorder, Vascular Disorder Additional Past Medical History / Comment(s): Multiple sclerosis diagnosed in 2004, wheelchair bound, NIDDM, hx of prostate obstruction and has had surgery, hx of urinary retention-was being straight cathed but IDC placed 05/19/18, UTI's , nephrolithiasis, arthritis multiple joints bilaterally, lumbar spine DJD, chronic back pain, numbness and tingling bilateral feet and hands, leg spasms, tracheobronchitis, constipation, psoriasis, vitamin D deficiency, PVD. Last Myocardial Infarction Date:: 2004 History of Any Multi-Drug Resistant Organisms: None Reported Past Surgical History: Heart Catheterization With Stent, Prostate Surgery Additional Past Surgical History / Comment(s): 2004 PTCA with 3 stents, laser cystoscopy/litotripsy with double J catheter insertion and eventual removal, cystoscopy/TURP, hemorhoids, L carpal tunnel release, colonoscopy, circumcism. Past Anesthesia/Blood Transfusion Reactions: No Reported Reaction Additional Past Anesthesia/Blood Transfusion Reaction / Comm: Pt states he has never received blood. Date of Last Stent Placement:: 2004 Smoking Status: Current every day smoker - Past Family History Father Family Medical History: Cancer Additional Family Medical History / Comment(s): Father of leukemia at the age of 40 yrs. Mother Family Medical History: Diabetes Mellitus Additional Family Medical History / Comment(s): Mother is 83 yrs old. Medications and Allergies Home Medications Medication Instructions Recorded Confirmed Type Atenolol [Tenormin] 25 mg PO DAILY@0600 08/10/14 05/22/18 History Clopidogrel [Plavix] 75 mg PO DAILY@0600 08/10/14 05/22/18 History Glatiramer Acetate [Copaxone] 40 mg SQ MOWEFR@1700 08/10/14 05/22/18 History Finasteride [Proscar] 5 mg PO DAILY@0600 09/27/14 05/22/18 History Acetaminophen Tab [Tylenol Tab] 500 mg PO Q6H PRN 05/22/18 05/22/18 History Acetaminophen [Tylenol Arthritis] 650 mg PO DAILY@1100 05/22/18 05/22/18 History Aspirin 81 mg PO HS 05/22/18 05/22/18 History Baclofen (Unknown Dose) 1 tab PO HS 05/22/18 05/22/18 History Bisacodyl [Dulcolax] 10 mg RECTAL Q72H PRN 05/22/18 05/22/18 History Calcium Carbonate/Vitamin D3 1 tab PO HS 05/22/18 05/22/18 History [Calcium 600-Vit D3 200 Tablet] Cholecalciferol (Vitamin D3) 2,000 unit PO DAILY 05/22/18 05/22/18 History [Vitamin D3] Citalopram Hydrobromide [CeleXA] 10 mg PO DAILY@0600 05/22/18 05/22/18 History Insulin Detemir [Levemir] 20 unit SQ HS 05/22/18 05/22/18 History Insulin Detemir [Levemir] 30 unit SQ DAILY 05/22/18 05/22/18 History Ipratropium-Albuterol Nebulize 3 ml INHALATION RT-Q2H PRN 05/22/18 05/22/18 History [Duoneb 0.5 mg-3 mg/3 ml Soln] Lisinopril [Prinivil] 5 mg PO DAILY@0600 05/22/18 05/22/18 History Mylanta 20 ml PO Q4H PRN 05/22/18 05/22/18 History Naproxen Sodium [Aleve] 220 mg PO BID@0600,1800 05/22/18 05/22/18 History Omeprazole 20 mg PO DAILY 05/22/18 05/22/18 History Point Relief Gel 1 applic TOPICAL QID PRN 05/22/18 05/22/18 History Pravastatin Sodium [Pravachol] 40 mg PO HS 05/22/18 05/22/18 History Sennosides/Docusate Sodium 1 tab PO DAILY@0630 05/22/18 05/22/18 History [Senna-S Laxative Tablet] Tamsulosin HCl [Flomax] 0.4 mg PO BID 05/22/18 05/22/18 History Triamcinolone 0.5% Cream [Kenalog 1 applic TOPICAL BID 05/22/18 05/22/18 History 0.5% Cream] metFORMIN HCL [Glucophage Xr] 1,000 mg PO DAILY@0600 05/22/18 05/22/18 History Allergies Allergy/AdvReac Type Severity Reaction Status Date / Time ibuprofen AdvReac Nausea Verified 05/22/18 06:51 Surgical - Exam Vital Signs Temp Pulse Resp BP Pulse Ox 97.7 F 93 16 125/78 98 05/22/18 02:46 05/22/18 02:46 05/22/18 02:46 05/22/18 02:46 05/22/18 02:46 Physical exam: General: Well-developed, well-nourished HEENT: Normocephalic, sclerae nonicteric Abdomen: Mild suprapubic tenderness, nondistended Extremities: Lower extremity contractures Neuro: Alert and oriented Results - Labs 05/22/18 03:06 05/22/18 03:06 Abnormal Lab Results - Last 24 Hours (Table) 05/22/18 05/22/18 05/22/18 Range/Units 03:06 03:06 03:06 WBC 12.7 H (3.8-10.6) k/uL Neutrophils # 9.5 H (1.3-7.7) k/uL Sodium 135 L (137-145) mmol/L Potassium 5.2 H (3.5-5.1) mmol/L Carbon Dioxide 19 L (22-30) mmol/L BUN 32 H (9-20) mg/dL Glucose 225 H (74-99) mg/dL POC Glucose (mg/dL) (75-99) mg/dL Urine Protein 2+ H (Negative) Urine Glucose (UA) 4+ H (Negative) Urine Blood Moderate H (Negative) Ur Leukocyte Esterase Large H (Negative) Urine RBC >182 H (0-5) /hpf Urine WBC >182 H (0-5) /hpf Urine WBC Clumps Rare H (None) /hpf Urine Bacteria Rare H (None) /hpf 05/22/18 05/22/18 Range/Units 11:29 17:17 WBC (3.8-10.6) k/uL Neutrophils # (1.3-7.7) k/uL Sodium (137-145) mmol/L Potassium (3.5-5.1) mmol/L Carbon Dioxide (22-30) mmol/L BUN (9-20) mg/dL Glucose (74-99) mg/dL POC Glucose (mg/dL) 181 H 186 H (75-99) mg/dL Urine Protein (Negative) Urine Glucose (UA) (Negative) Urine Blood (Negative) Ur Leukocyte Esterase (Negative) Urine RBC (0-5) /hpf Urine WBC (0-5) /hpf Urine WBC Clumps (None) /hpf Urine Bacteria (None) /hpf Microbiology - Last 24 Hours (Table) 05/22/18 03:06 Urine Culture - Preliminary Urine,Catheterized Diabetes panel 05/22/18 Range/Units 03:06 Sodium 135 L (137-145) mmol/L Potassium 5.2 H (3.5-5.1) mmol/L Chloride 106 (98-107) mmol/L Carbon Dioxide 19 L (22-30) mmol/L BUN 32 H (9-20) mg/dL Creatinine 0.84 (0.66-1.25) mg/dL Glucose 225 H (74-99) mg/dL Calcium 10.1 (8.4-10.2) mg/dL AST 17 (17-59) U/L ALT 33 (21-72) U/L Alkaline Phosphatase 93 (38-126) U/L Total Protein 7.2 (6.3-8.2) g/dL Albumin 3.8 (3.5-5.0) g/dL Calcium panel 05/22/18 Range/Units 03:06 Calcium 10.1 (8.4-10.2) mg/dL Albumin 3.8 (3.5-5.0) g/dL Pituitary panel 05/22/18 Range/Units 03:06 Sodium 135 L (137-145) mmol/L Potassium 5.2 H (3.5-5.1) mmol/L Chloride 106 (98-107) mmol/L Carbon Dioxide 19 L (22-30) mmol/L BUN 32 H (9-20) mg/dL Creatinine 0.84 (0.66-1.25) mg/dL Glucose 225 H (74-99) mg/dL Calcium 10.1 (8.4-10.2) mg/dL Adrenal panel 05/22/18 Range/Units 03:06 Sodium 135 L (137-145) mmol/L Potassium 5.2 H (3.5-5.1) mmol/L Chloride 106 (98-107) mmol/L Carbon Dioxide 19 L (22-30) mmol/L BUN 32 H (9-20) mg/dL Creatinine 0.84 (0.66-1.25) mg/dL Glucose 225 H (74-99) mg/dL Calcium 10.1 (8.4-10.2) mg/dL Total Bilirubin 0.7 (0.2-1.3) mg/dL AST 17 (17-59) U/L ALT 33 (21-72) U/L Alkaline Phosphatase 93 (38-126) U/L Total Protein 7.2 (6.3-8.2) g/dL Albumin 3.8 (3.5-5.0) g/dL Assessment and Plan (1) Abdominal pain Narrative/Plan: Patient's abdominal pain likely related to the urinary tract infection. Continue diet as tolerated. Will follow with you. Current Visit: Yes Status: Acute Code(s): R10.9 - UNSPECIFIED ABDOMINAL PAIN SNOMED Code(s): 94522107
[2018-05-22] MEDS ORDERED: BACLOFEN PO SCH (21:00)
[2018-05-22 21:04] LABS: Glucose,Whole Blood 236 mg/dL (75-99)
[2018-05-22] MEDS: ASPIRIN 81 MG PO SCH (22:02)
[2018-05-22] MEDS: PRAVASTATIN SODIUM 40 MG TAB PO SCH (22:02)
[2018-05-22] MEDS: CALCIUM CARB-VIT D 500MG-200UN 1 EACH TAB PO SCH (22:02)
[2018-05-23] MEDS: SODIUM CHLORIDE 0.9% 1,000 ML IV SCH ×2 (03:41→23:49)
[2018-05-23] MEDS: MORPHINE SULFATE 4 MG/ML SYRINGE IV PRN ×5 (04:46→23:44)
[2018-05-23] MEDS: ATENOLOL 25 MG TAB PO SCH (06:27)
[2018-05-23] MEDS: SENNOSIDES-DOCUSATE SODIUM 1 EACH TAB PO SCH (06:27)
[2018-05-23] MEDS: FINASTERIDE 5 MG TAB PO SCH (06:28)
[2018-05-23] MEDS: CITALOPRAM HYDROBROMIDE 10 MG TAB PO SCH (06:28)
[2018-05-23] MEDS: CLOPIDOGREL 75 MG TAB PO SCH (06:28)
[2018-05-23] MEDS: LISINOPRIL 5 MG TAB PO SCH (06:28)
[2018-05-23 07:24] LABS: Glucose,Whole Blood 185 mg/dL (75-99)
[2018-05-23] MEDS: CHOLECALCIFEROL 1,000 UNIT TAB PO SCH (08:26)
[2018-05-23] MEDS: metFORMIN 500 MG TAB PO SCH ×2 (08:26→17:17)
[2018-05-23] MEDS: INSULIN DETEMIR 100 UNIT/ML 10 ML VIAL SQ SCH ×2 (08:26→21:05)
[2018-05-23] MEDS: NAPROXEN 250 MG TAB PO SCH ×2 (08:26→17:17)
[2018-05-23] MEDS: PANTOPRAZOLE 40 MG TABLET PO SCH (08:26)
[2018-05-23] MEDS: TRIAMCINOLONE ACET 0.5% CREAM 15 GM TUBE TOPICAL SCH ×2 (08:27→23:06)
[2018-05-23] MEDS: ENOXAPARIN 40 MG/0.4 ML SYRINGE SQ SCH (08:27)
[2018-05-23] MEDS: TAMSULOSIN 0.4 MG CAP.ER.24H PO SCH ×2 (08:27→23:05)
[2018-05-23 10:34] LABS: Basophils % (A) 0 %; Eosinophils # (A) 0.3 k/uL (0-0.7); Eosinophils % (A) 4 %; HCT 43.9 % (39.0-53.0); HGB 14.1 gm/dL (13.0-17.5); Lymphocytes # (A) 1.2 k/uL (1.0-4.8); Lymphocytes % (A) 15 %; MCH 27.9 pg (25.0-35.0); MCHC 32.1 g/dL (31.0-37.0); MCV 86.9 fL (80.0-100.0); Mean Platelet Volume 7.7; Monocytes # (A) 0.5 k/uL (0-1.0); Monocytes % (A) 6 %; Neutrophils # (A) 6.1 k/uL (1.3-7.7); Neutrophils % (A) 73 %; Platelet Count 197 k/uL (150-450); RBC 5.06 m/uL (4.30-5.90); RDW 13.9 % (11.5-15.5); WBC 8.3 k/uL (3.8-10.6)
[2018-05-23 10:58] LABS: ALT 31 U/L (21-72); AST 15 U/L (17-59); Albumin 3.1 g/dL (3.5-5.0); Alkaline Phosphatase 62 U/L (38-126); Anion Gap 9 mmol/L; Blood Urea Nitrogen 20 mg/dL (9-20); Calcium 9.3 mg/dL (8.4-10.2); Carbon Dioxide 22 mmol/L (22-30); Chloride 104 mmol/L (98-107); Glucose 198 mg/dL (74-99); Potassium 4.6 mmol/L (3.5-5.1); Sodium 135 mmol/L (137-145); Total Bilirubin 0.6 mg/dL (0.2-1.3)
--- NOTE | 2018-05-23 11:36 | P.PN ---
Subjective Progress Note Date: 05/23/18 This is 63-year-old male patient who presented to the emergency room with complaints of a urinary tract infection with significant abdominal pain. Patient currently less than cell is to his disability with multiple sclerosis. Patient is bedbound. Patient has past medical history of recurrent UTIs has required straight cath for the past few weeks. Patient has past medical history of multiple sclerosis, diabetes mellitus, hypertension, myocardial infarction, osteoarthritis, heart cath with stents, , renal disorder, GERD and COPD. CT of abdomen completed showing This in the left renal pelvis without evidence of obstruction. This appears new compared to old exam. There is distended proximal small bowel. No transition been seen. This could relate to small bowel ileus. 3.3 cm aneurysm of the left lower abdominal aorta. No significant change. There is new mild atelectasis the lung base compared to old exam. Urinary analysis positive for leukocyte esterase. Urine culture has been ordered. Blood culture ordered. Dr. Bedoya consulted for urology. At this time patient denies chest pain or shortness of breath. Patient denies nausea vomiting or diarrhea. Patient is still complaining of some abdominal pain. Espinosa catheter is in place. On 05/23/2018 patient is currently alert and oriented 3. Patient is resting comfortably in bed. This time patient denies chest pain or shortness of breath. Patient denies nausea vomiting or diarrhea. Patient is complaining of constipation. Lactulose has been ordered. Objective - Vital Signs Vital signs: Vital Signs Temp 96.7 F L 05/23/18 05:43 Pulse 79 05/23/18 05:43 Resp 16 05/23/18 05:43 BP 133/65 05/23/18 05:43 Pulse Ox 95 05/23/18 05:43 Intake & Output 05/22/18 05/23/18 05/23/18 18:59 06:59 18:59 Intake Total 480 200 Output Total 900 400 Balance -420 -400 200 Intake: Oral 480 200 Output: Urine 900 400 Other: Voiding Method Indwelling Catheter Indwelling Catheter # Bowel Movements 0 - Exam Head normocephalic Neck supple Lungs clear to auscultation bilaterally no wheezing or crackles Heart regular rate and rhythm S1-S2, no rub or gallop Abdomen lower abdomen tenderness to palpation. Extremities no edema Neuro alert and orientated to 3 - Labs CBC & Chem 7: 05/23/18 09:19 05/23/18 09:19 Labs: Abnormal Lab Results - Last 24 Hours (Table) 05/22/18 05/22/18 05/22/18 Range/Units 11:29 17:17 21:02 Sodium (137-145) mmol/L Glucose (74-99) mg/dL POC Glucose (mg/dL) 181 H 186 H 236 H (75-99) mg/dL AST (17-59) U/L Total Protein (6.3-8.2) g/dL Albumin (3.5-5.0) g/dL 05/23/18 05/23/18 Range/Units 07:11 09:19 Sodium 135 L (137-145) mmol/L Glucose 198 H (74-99) mg/dL POC Glucose (mg/dL) 185 H (75-99) mg/dL AST 15 L (17-59) U/L Total Protein 6.0 L (6.3-8.2) g/dL Albumin 3.1 L (3.5-5.0) g/dL Microbiology - Last 24 Hours (Table) 05/22/18 03:06 Blood Culture - Preliminary Blood No Growth after 24 hours 05/22/18 03:06 Urine Culture - Preliminary Urine,Catheterized Assessment and Plan Assessment: 1. Neurogenic bladder with urine retention. Probable Urinary tract infection. Urine culture has been ordered. Patient started on Rocephin. CT of abdomen completed showing Ileus in the left renal pelvis without evidence of obstruction. This appears new compared to old exam. There is distended proximal small bowel. No transition point seen. This could relate to small bowel ileus. 3.3 cm aneurysm of lower abdominal aorta. No Significant change. There is mild atelectasis at the lung base that old exam. Espinosa catheter in is in place. Urology services have been consulted. Per urology long-term bladder management will probably require indwelling catheter. Blood culture currently showing no growth. Urine culture in progress. Patient maintained on Rocephin. 2. History of multiple sclerosis. Patient is bedbound and resides at [facility] 3. History of diabetes mellitus 4. Essential hypertension 5. Myocardial infarction with cardiac stent placement. Patient currently maintained on Plavix 6. History of COPD. No exacerbation at this time 7. Frequent UTIs. Patient does have history of cystoscopy/TURP 8. History of osteoarthritis 9. History of psoriasis 10. History of hyperlipidemia. 11. Constipation. computed tomography scan showing distended proximal small bowel. No transition point seen. This could relate to small bowel ileus. Dr. pagan consulted for surgical services. Surgical services abdominal pain likely related to UTI. Continue diet as tolerated. Lactulose has been added 12. Lower abdominal aortic aneurysm. CT scanning completed showing 3.3 cm aneurysm lower abdominal aorta. No significant change DVT prophylaxis Lovenox. GI prophylaxis Protonix
[2018-05-23] MEDS ORDERED: LACTULOSE 20 GM/30 ML CUP PO ONE (12:00)
[2018-05-23 12:22] LABS: Glucose,Whole Blood 124 mg/dL (75-99)
--- NOTE | 2018-05-23 16:28 | P.PN ---
Subjective Progress Note Date: 05/23/18 Principal diagnosis: Abdominal pain Patient still complaining of suprapubic abdominal pain. Tolerating diet. Feels somewhat constipated today. Is passing flatus. Denies nausea vomiting. Objective - Vital Signs Vital signs: Vital Signs Temp 98.1 F 05/23/18 14:53 Pulse 84 05/23/18 14:53 Resp 16 05/23/18 15:52 BP 130/61 05/23/18 14:53 Pulse Ox 97 05/23/18 14:53 Intake & Output 05/22/18 05/23/18 05/23/18 18:59 06:59 18:59 Intake Total 480 400 Output Total 900 400 Balance -420 -400 400 Intake: Oral 480 400 Output: Urine 900 400 Other: Voiding Method Indwelling Catheter Indwelling Catheter Indwelling Catheter # Voids 1 # Bowel Movements 0 0 - Exam Abdomen: Soft, nondistended, mild suprapubic tenderness, no rebound or guarding - Labs CBC & Chem 7: 05/23/18 09:19 05/23/18 09:19 Labs: Abnormal Lab Results - Last 24 Hours (Table) 05/22/18 05/22/18 05/23/18 Range/Units 17:17 21:02 07:11 Sodium (137-145) mmol/L Glucose (74-99) mg/dL POC Glucose (mg/dL) 186 H 236 H 185 H (75-99) mg/dL AST (17-59) U/L Total Protein (6.3-8.2) g/dL Albumin (3.5-5.0) g/dL 05/23/18 05/23/18 Range/Units 09:19 12:10 Sodium 135 L (137-145) mmol/L Glucose 198 H (74-99) mg/dL POC Glucose (mg/dL) 124 H (75-99) mg/dL AST 15 L (17-59) U/L Total Protein 6.0 L (6.3-8.2) g/dL Albumin 3.1 L (3.5-5.0) g/dL Microbiology - Last 24 Hours (Table) 05/22/18 03:06 Urine Culture - Preliminary Urine,Catheterized Presumptive Staph aureus 05/22/18 03:06 Blood Culture - Preliminary Blood No Growth after 24 hours Assessment and Plan (1) Abdominal pain Narrative/Plan: Continue antibiotics for UTI. Continue diet as tolerated. Will follow. Current Visit: Yes Status: Acute Code(s): R10.9 - UNSPECIFIED ABDOMINAL PAIN SNOMED Code(s): 93304415
[2018-05-23 17:08] LABS: Glucose,Whole Blood 123 mg/dL (75-99)
[2018-05-23] MEDS: ASPIRIN 81 MG PO SCH (21:01)
[2018-05-23] MEDS: CALCIUM CARB-VIT D 500MG-200UN 1 EACH TAB PO SCH (21:01)
[2018-05-23] MEDS: PRAVASTATIN SODIUM 40 MG TAB PO SCH (21:01)
[2018-05-23 21:02] LABS: Glucose,Whole Blood 131 mg/dL (75-99)
[2018-05-24] MEDS: MORPHINE SULFATE 4 MG/ML SYRINGE IV PRN ×4 (04:05→16:15)
[2018-05-24] MEDS: FINASTERIDE 5 MG TAB PO SCH (06:20)
[2018-05-24] MEDS: CLOPIDOGREL 75 MG TAB PO SCH (06:20)
[2018-05-24] MEDS: SENNOSIDES-DOCUSATE SODIUM 1 EACH TAB PO SCH (06:21)
[2018-05-24] MEDS: LISINOPRIL 5 MG TAB PO SCH (06:21)
[2018-05-24] MEDS: ATENOLOL 25 MG TAB PO SCH (06:21)
[2018-05-24] MEDS: CITALOPRAM HYDROBROMIDE 10 MG TAB PO SCH (06:21)
[2018-05-24] MEDS: PANTOPRAZOLE 40 MG TABLET PO SCH (06:22)
[2018-05-24] MEDS: NAPROXEN 250 MG TAB PO SCH ×2 (06:22→19:01)
[2018-05-24 07:26] LABS: Glucose,Whole Blood 100 mg/dL (75-99)
[2018-05-24] MEDS: metFORMIN 500 MG TAB PO SCH ×2 (08:05→17:31)
[2018-05-24] MEDS: ENOXAPARIN 40 MG/0.4 ML SYRINGE SQ SCH (08:05)
[2018-05-24] MEDS: CHOLECALCIFEROL 1,000 UNIT TAB PO SCH (08:05)
[2018-05-24] MEDS: TAMSULOSIN 0.4 MG CAP.ER.24H PO SCH ×2 (08:06→21:37)
[2018-05-24] MEDS: TRIAMCINOLONE ACET 0.5% CREAM 15 GM TUBE TOPICAL SCH ×2 (08:06→20:15)
[2018-05-24] MEDS: INSULIN DETEMIR 100 UNIT/ML 10 ML VIAL SQ SCH ×2 (10:15→21:37)
[2018-05-24 10:19] LABS: Glucose,Whole Blood 165 mg/dL (75-99)
--- NOTE | 2018-05-24 10:31 | P.PN ---
Progress Note - Text Progress Note Date: 05/24/18 The patient is afebrile and says that he feels more comfortable than yesterday. Urine draining from his catheter is grossly clear. Preliminary urine culture appears to be growing Staphylococcus aureus. Blood cultures are negative. The patient's abdominal pain appeared to be related to a urinary tract infection and is improving. From my standpoint the patient can be discharged with a Espinosa catheter in place and I will set up cystoscopy in the office to determine whether or not there is an alternative to a chronic Espinosa catheter. The patient could be discharged on Bactrim pending final results of the urine culture as long as the culture can be checked tomorrow to ensure that the antibiotic choice is appropriate.
[2018-05-24 10:39] LABS: Basophils % (A) 0 %; Eosinophils # (A) 0.3 k/uL (0-0.7); Eosinophils % (A) 4 %; HCT 44.7 % (39.0-53.0); HGB 14.4 gm/dL (13.0-17.5); Lymphocytes # (A) 1.7 k/uL (1.0-4.8); Lymphocytes % (A) 23 %; MCH 28.8 pg (25.0-35.0); MCHC 32.3 g/dL (31.0-37.0); MCV 89.1 fL (80.0-100.0); Mean Platelet Volume 7.8; Monocytes # (A) 0.4 k/uL (0-1.0); Monocytes % (A) 5 %; Neutrophils # (A) 4.8 k/uL (1.3-7.7); Neutrophils % (A) 64 %; Platelet Count 176 k/uL (150-450); RBC 5.02 m/uL (4.30-5.90); WBC 7.5 k/uL (3.8-10.6)
[2018-05-24 11:14] LABS: ALT 30 U/L (21-72); AST 26 U/L (17-59); Albumin 2.9 g/dL (3.5-5.0); Alkaline Phosphatase 52 U/L (38-126); Anion Gap 9 mmol/L; Blood Urea Nitrogen 20 mg/dL (9-20); Calcium 9.1 mg/dL (8.4-10.2); Carbon Dioxide 21 mmol/L (22-30); Chloride 107 mmol/L (98-107); Glucose 189 mg/dL (74-99); Potassium 4.7 mmol/L (3.5-5.1); Sodium 137 mmol/L (137-145); Total Bilirubin 0.5 mg/dL (0.2-1.3); Total Protein 5.8 g/dL (6.3-8.2)
[2018-05-24 11:37] LABS: Glucose,Whole Blood 133 mg/dL (75-99)
[2018-05-24] MEDS ORDERED: VANCOMYCIN IV PER PHARMACY 1 EACH MISC MISCELLANE PRN (11:59)
[2018-05-24] MEDS ORDERED: LACTULOSE 20 GM/30 ML CUP PO ONE (12:01)
--- NOTE | 2018-05-24 12:04 | P.PN ---
Subjective Progress Note Date: 05/24/18 This is 63-year-old male patient who presented to the emergency room with complaints of a urinary tract infection with significant abdominal pain. Patient currently less than cell is to his disability with multiple sclerosis. Patient is bedbound. Patient has past medical history of recurrent UTIs has required straight cath for the past few weeks. Patient has past medical history of multiple sclerosis, diabetes mellitus, hypertension, myocardial infarction, osteoarthritis, heart cath with stents, , renal disorder, GERD and COPD. CT of abdomen completed showing This in the left renal pelvis without evidence of obstruction. This appears new compared to old exam. There is distended proximal small bowel. No transition been seen. This could relate to small bowel ileus. 3.3 cm aneurysm of the left lower abdominal aorta. No significant change. There is new mild atelectasis the lung base compared to old exam. Urinary analysis positive for leukocyte esterase. Urine culture has been ordered. Blood culture ordered. Dr. Bedoya consulted for urology. At this time patient denies chest pain or shortness of breath. Patient denies nausea vomiting or diarrhea. Patient is still complaining of some abdominal pain. Espinosa catheter is in place. On 05/23/2018 patient is currently alert and oriented 3. Patient is resting comfortably in bed. This time patient denies chest pain or shortness of breath. Patient denies nausea vomiting or diarrhea. Patient is complaining of constipation. Lactulose has been ordered. On 05/24/2018 patient is currently alert and oriented 3. Urine is positive for MRSA. Patient switched to IV vancomycin. Infectious disease consult has been placed. This time patient denies chest pain or shortness of breath. Patient denies nausea vomiting or diarrhea. Patient is complaining of constipation. Will order additional dose of lactulose Objective - Vital Signs Vital signs: Vital Signs Temp 98.3 F 05/24/18 06:08 Pulse 64 05/24/18 06:08 Resp 14 05/24/18 06:08 BP 139/82 05/24/18 06:08 Pulse Ox 98 05/24/18 06:08 Intake & Output 05/23/18 05/24/18 05/24/18 18:59 06:59 18:59 Intake Total 400 240 Output Total 800 Balance 400 -800 240 Intake: Oral 400 240 Output: Urine 800 Other: Voiding Method Indwelling Catheter Indwelling Catheter Indwelling Catheter # Voids 1 1 # Bowel Movements 0 0 - Exam Head normocephalic Neck supple Lungs clear to auscultation bilaterally no wheezing or crackles Heart regular rate and rhythm S1-S2, no rub or gallop Abdomen lower abdomen tenderness to palpation. Extremities no edema Neuro alert and orientated to 3 - Labs CBC & Chem 7: 05/24/18 09:39 05/24/18 09:39 Labs: Abnormal Lab Results - Last 24 Hours (Table) 05/23/18 05/23/18 05/23/18 Range/Units 09:19 12:10 17:07 Carbon Dioxide (22-30) mmol/L Glucose (74-99) mg/dL POC Glucose (mg/dL) 124 H 123 H (75-99) mg/dL Hemoglobin A1c 10.0 H (4.0-6.0) % Total Protein (6.3-8.2) g/dL Albumin (3.5-5.0) g/dL 05/23/18 05/24/18 05/24/18 Range/Units 21:01 07:16 09:39 Carbon Dioxide 21 L (22-30) mmol/L Glucose 189 H (74-99) mg/dL POC Glucose (mg/dL) 131 H 100 H (75-99) mg/dL Hemoglobin A1c (4.0-6.0) % Total Protein 5.8 L (6.3-8.2) g/dL Albumin 2.9 L (3.5-5.0) g/dL 05/24/18 05/24/18 Range/Units 10:15 11:35 Carbon Dioxide (22-30) mmol/L Glucose (74-99) mg/dL POC Glucose (mg/dL) 165 H 133 H (75-99) mg/dL Hemoglobin A1c (4.0-6.0) % Total Protein (6.3-8.2) g/dL Albumin (3.5-5.0) g/dL Microbiology - Last 24 Hours (Table) 05/22/18 03:06 Urine Culture - Final Urine,Catheterized Methicillin resist S. aureus 05/22/18 03:06 Blood Culture - Preliminary Blood No Growth after 48 hours Assessment and Plan Assessment: 1. Neurogenic bladder with urine retention. CT of abdomen completed showing Ileus in the left renal pelvis without evidence of obstruction. This appears new compared to old exam. There is distended proximal small bowel. No transition point seen. This could relate to small bowel ileus. 3.3 cm aneurysm of lower abdominal aorta. No Significant change. There is mild atelectasis at the lung base that old exam. Espinosa catheter in is in place. Urology services have been consulted. Per urology patient should be discharged with Espinosa catheter in place. Patient will need to follow-up with urology services for cystoscopy in the office to determine whether or not there is no alternative chronic Espinosa catheter. 2. History of multiple sclerosis. Patient is bedbound and resides at [facility] 3. History of diabetes mellitus 4. Essential hypertension 5. Myocardial infarction with cardiac stent placement. Patient currently maintained on Plavix 6. History of COPD. No exacerbation at this time 7. Frequent UTIs. Patient does have history of cystoscopy/TURP 8. History of osteoarthritis 9. History of psoriasis 10. History of hyperlipidemia. 11. Constipation. computed tomography scan showing distended proximal small bowel. No transition point seen. This could relate to small bowel ileus. Dr. pagan consulted for surgical services. Surgical services abdominal pain likely related to UTI. Continue diet as tolerated. Lactulose has been added 12. Lower abdominal aortic aneurysm. CT scanning completed showing 3.3 cm aneurysm lower abdominal aorta. No significant change 13. UTI. Culture positive for MRSA. Infectious disease has been consulted. patient switched IV vancomycin DVT prophylaxis Lovenox. GI prophylaxis Protonix I performed an examination of the patient and discussed their management with the Nurse Practitioner. I have reviewed the Nurse Practitioner's notes and agree with the documented findings and plan of care
[2018-05-24 12:14] VITALS: BMI 25.1
[2018-05-24] MEDS ORDERED: VANCOMYCIN 1,500 MG in SODIUM CHLORIDE 0.9% 250 ML IVPB ONE (12:15)
[2018-05-24] MEDS ORDERED: NA PHOS,M-B/NA PHOS,DI-BA 133 ML ENEMA RECTAL ONE (14:21)
--- NOTE | 2018-05-24 14:46 | P.PN ---
Subjective Progress Note Date: 05/24/18 Principal diagnosis: Abdominal pain Patient feeling better. Minimal abdominal pain at this time. Mild bloating. No nausea or vomiting. Passing gas but no bowel movement today. Objective - Vital Signs Vital signs: Vital Signs Temp 98.3 F 05/24/18 06:08 Pulse 64 05/24/18 06:08 Resp 14 05/24/18 06:08 BP 139/82 05/24/18 06:08 Pulse Ox 98 05/24/18 06:08 Intake & Output 05/23/18 05/24/18 05/24/18 18:59 06:59 18:59 Intake Total 400 480 Output Total 800 Balance 400 -800 480 Weight 77.111 kg Intake: Oral 400 480 Output: Urine 800 Other: Voiding Method Indwelling Catheter Indwelling Catheter Indwelling Catheter # Voids 1 1 # Bowel Movements 0 0 - Exam Abdomen: Soft, nondistended, nontender - Labs CBC & Chem 7: 05/24/18 09:39 05/24/18 09:39 Labs: Abnormal Lab Results - Last 24 Hours (Table) 05/23/18 05/23/18 05/23/18 Range/Units 09:19 17:07 21:01 Carbon Dioxide (22-30) mmol/L Glucose (74-99) mg/dL POC Glucose (mg/dL) 123 H 131 H (75-99) mg/dL Hemoglobin A1c 10.0 H (4.0-6.0) % Total Protein (6.3-8.2) g/dL Albumin (3.5-5.0) g/dL 05/24/18 05/24/18 05/24/18 Range/Units 07:16 09:39 10:15 Carbon Dioxide 21 L (22-30) mmol/L Glucose 189 H (74-99) mg/dL POC Glucose (mg/dL) 100 H 165 H (75-99) mg/dL Hemoglobin A1c (4.0-6.0) % Total Protein 5.8 L (6.3-8.2) g/dL Albumin 2.9 L (3.5-5.0) g/dL 05/24/18 Range/Units 11:35 Carbon Dioxide (22-30) mmol/L Glucose (74-99) mg/dL POC Glucose (mg/dL) 133 H (75-99) mg/dL Hemoglobin A1c (4.0-6.0) % Total Protein (6.3-8.2) g/dL Albumin (3.5-5.0) g/dL Microbiology - Last 24 Hours (Table) 05/22/18 03:06 Urine Culture - Final Urine,Catheterized Methicillin resist S. aureus 05/22/18 03:06 Blood Culture - Preliminary Blood No Growth after 48 hours Assessment and Plan (1) Abdominal pain Narrative/Plan: Continue stool softeners. Continue diet as tolerated. We'll sign off. Please call if pain recurs. Current Visit: Yes Status: Acute Code(s): R10.9 - UNSPECIFIED ABDOMINAL PAIN SNOMED Code(s): 78502308
[2018-05-24 17:22] LABS: Glucose,Whole Blood 169 mg/dL (75-99)
[2018-05-24] MEDS: Glatiramer Acetate [Copaxone] SQ SCH (17:30)
[2018-05-24] MEDS: SODIUM CHLORIDE 0.9% 1,000 ML IV SCH (17:31)
[2018-05-24] MEDS: MORPHINE SULFATE 4 MG/ML SYRINGE IVP PRN (20:12)
[2018-05-24] MEDS: ASPIRIN 81 MG PO SCH (20:13)
[2018-05-24] MEDS: CALCIUM CARB-VIT D 500MG-200UN 1 EACH TAB PO SCH (20:13)
[2018-05-24] MEDS: PRAVASTATIN SODIUM 40 MG TAB PO SCH (20:13)
[2018-05-24] MEDS: VANCOMYCIN 1,500 MG in SODIUM CHLORIDE 0.9% 250 ML IVPB SCH (20:14)
[2018-05-24 21:38] LABS: Glucose,Whole Blood 163 mg/dL (75-99)
[2018-05-25] MEDS: MORPHINE SULFATE 4 MG/ML SYRINGE IV PRN ×6 (00:17→20:26)
[2018-05-25] MEDS: CLOPIDOGREL 75 MG TAB PO SCH (06:10)
[2018-05-25] MEDS: FINASTERIDE 5 MG TAB PO SCH (06:10)
[2018-05-25] MEDS: CITALOPRAM HYDROBROMIDE 10 MG TAB PO SCH (06:10)
[2018-05-25] MEDS: ATENOLOL 25 MG TAB PO SCH (06:10)
[2018-05-25] MEDS: SENNOSIDES-DOCUSATE SODIUM 1 EACH TAB PO SCH (06:11)
[2018-05-25] MEDS: LISINOPRIL 5 MG TAB PO SCH (06:11)
[2018-05-25 07:28] LABS: Glucose,Whole Blood 126 mg/dL (75-99)
[2018-05-25] MEDS: NAPROXEN 250 MG TAB PO SCH ×2 (07:50→17:23)
[2018-05-25] MEDS: PANTOPRAZOLE 40 MG TABLET PO SCH (07:50)
[2018-05-25] MEDS: TRIAMCINOLONE ACET 0.5% CREAM 15 GM TUBE TOPICAL SCH ×2 (07:51→20:29)
[2018-05-25] MEDS: metFORMIN 500 MG TAB PO SCH ×2 (07:51→17:23)
[2018-05-25] MEDS: NYSTATIN 100,000 UNIT/GM POWD 15 GM TOPICAL SCH ×2 (07:51→20:29)
[2018-05-25] MEDS: ENOXAPARIN 40 MG/0.4 ML SYRINGE SQ SCH (07:51)
[2018-05-25] MEDS: CHOLECALCIFEROL 1,000 UNIT TAB PO SCH (07:51)
[2018-05-25] MEDS: TAMSULOSIN 0.4 MG CAP.ER.24H PO SCH ×2 (07:51→20:29)
[2018-05-25] MEDS: VANCOMYCIN 1,500 MG in SODIUM CHLORIDE 0.9% 250 ML IVPB SCH ×2 (07:59→20:27)
[2018-05-25] MEDS: INSULIN DETEMIR 100 UNIT/ML 10 ML VIAL SQ SCH ×2 (08:46→20:31)
--- NOTE | 2018-05-25 09:08 | CONS ---
CONSULTATION -. DATE OF SERVICE: 05/24/2018. REASON FOR CONSULTATION: MRSA urinary tract infection. HISTORY OF PRESENT ILLNESS: The patient is a 63-year-old, male presenting to the ER at [facility] on 05/22/2018 with chief complaints of the pain in the lower abdominal area that has been going on for the last 2 to 3 days prior to presentation to hospital. The patient apparently was recently diagnosed in outpatient setting with urinary tract infection and at which time the patient did have indwelling Espinosa catheter which was discontinued. The patient has been straight cathing himself for the last few days before admission to the hospital. The patient has been complaining of pain to the lower abdominal area. Pain described to be more of a dull aching pain, intensity about 5 to 6/10 that has been going on for 2 to 3 days with no radiation. The patient has slightly feeling nauseated but no vomiting. Has also been complaining of burning of urine. With these symptoms, the patient has been brought to the [facility] ER. On arrival to the ER, the patient has been afebrile. However, his white count has been normal. Urine was significantly positive with large more than 182 WBCs. The patient was treated with Rocephin however with culture showing an MRSA resistant to the Bactrim. Infectious Disease was consulted for further recommendation regarding antibiotic therapy. Blood culture has been negative so far. The patient did have a CT of the abdomen and pelvis completed because of his complaint of lower abdominal pain on admission to the hospital which shows calculus in the left renal pelvis without evidence of obstruction, distended possible small bowel and 3.3 cm aneurysm of the abdominal aorta. REVIEW OF SYSTEMS: CONSTITUTIONAL: Positive for weakness and some chills. EYES no complaint. ENT no complaint. RESPIRATORY no complaint. CARDIOVASCULAR no complaint. GENITOURINARY: as per HPI. GASTROINTESTINAL no complaint. MUSCULOSKELETAL no complaint. INTEGUMENTARY: No complaint. PSYCHOLOGICAL no complaint. ENDOCRINE no complaint. NEUROLOGIC no complaint. PAST MEDICAL HISTORY: COPD, diabetes mellitus, gastroesophageal reflux disease, hyperlipidemia, hypertension and PR, osteoarthritis peripheral vascular disease, psoriasis. PAST SURGICAL HISTORY: PTCA with stent, prostate surgery and TURP, lithotripsy with the Double J catheter insertion and subsequently removed. SOCIAL HISTORY: Current every day smoker. No drinking or drug use. FAMILY HISTORY: Father of leukemia at age of 40. Mother with diabetes mellitus. ALLERGIES: TO IBUPROFEN. MEDICATIONS: Medications include the patient is currently on Tylenol, Maalox, DuoNeb, aspirin, Tenormin, Dulcolax, Os-Abelardo-D, vitamin D3, Celexa, Plavix, Lovenox, Proscar, Levemir, Zestril. Glucophage, morphine sulfate, Narcan, Protonix, Pravachol, Flomax and vancomycin 15 mg q.12. EXAMINATION: Blood pressure 133/74 with a pulse of 71, temperature 97.9. He is 97% on room air. General description is a middle-aged male lying in bed in no distress. No tachypnea or accessory muscle of respiration use. HEENT: Shows no pallor or scleral icterus. Oral mucosa membranes dry. No pharyngeal erythema or thrush. Neck trachea central. No thyromegaly. LUNGS: Unlabored breathing. Clear to auscultation anteriorly. No wheeze or crackles. Heart S1, S2. Regular rate and rhythm. ABDOMEN: Soft, no tenderness. No guarding or rigidity. No organomegaly. Extremities: No edema of the feet. Skin examination: No rashes or mass palpable. Neurological: Patient is awake, alert, oriented x3. Mood and affect normal. LABS: Hemoglobin 14.4, white count 4.7 on admission. BUN of 20, creatinine 0.70. Electrolytes have been normal. Urine was positive for large leukocyte esterase, more than 1 WBC. Cultures with MRSA resistant to the Bactrim DS, sensitive to the vancomycin with RADHA of 1. DIAGNOSTIC IMPRESSION AND PLAN: Patient admitted to the hospital with significant urinary symptoms of difficulty urination. Did have a suprapubic discomfort and burning of urine. The patient did have a neurogenic bladder from MS and also history of a renal stone complicated urinary tract infection. However, the patient currently not bacteremic. His Methicillin-resistant Staphylococcus aureus the Bactrim DS for discharge. PLAN: 1. Vancomycin, pharmacy to dose, target of 15 while watching his kidney function and Vanco trough closely. 2. IV fluids. 3. If the patient did respond to with vancomycin may continue with vancomycin through midline for at least 7-10 days with close outpatient followup. 4. Continue supportive care. Thank you for this consultation. MMODL / IJN: [id number] /
[2018-05-25 10:31] LABS: Basophils % (A) 0 %; Eosinophils # (A) 0.4 k/uL (0-0.7); Eosinophils % (A) 5 %; HGB 14.5 gm/dL (13.0-17.5); Lymphocytes # (A) 1.3 k/uL (1.0-4.8); Lymphocytes % (A) 19 %; MCH 28.3 pg (25.0-35.0); MCHC 32.3 g/dL (31.0-37.0); MCV 87.7 fL (80.0-100.0); Mean Platelet Volume 7.9; Monocytes # (A) 0.4 k/uL (0-1.0); Monocytes % (A) 5 %; Neutrophils # (A) 4.5 k/uL (1.3-7.7); Neutrophils % (A) 66 %; Platelet Count 173 k/uL (150-450); RBC 5.13 m/uL (4.30-5.90); RDW 13.9 % (11.5-15.5); WBC 6.8 k/uL (3.8-10.6)
--- NOTE | 2018-05-25 10:37 | P.PN ---
Subjective Progress Note Date: 05/25/18 This is 63-year-old male patient who presented to the emergency room with complaints of a urinary tract infection with significant abdominal pain. Patient currently less than cell is to his disability with multiple sclerosis. Patient is bedbound. Patient has past medical history of recurrent UTIs has required straight cath for the past few weeks. Patient has past medical history of multiple sclerosis, diabetes mellitus, hypertension, myocardial infarction, osteoarthritis, heart cath with stents, , renal disorder, GERD and COPD. CT of abdomen completed showing This in the left renal pelvis without evidence of obstruction. This appears new compared to old exam. There is distended proximal small bowel. No transition been seen. This could relate to small bowel ileus. 3.3 cm aneurysm of the left lower abdominal aorta. No significant change. There is new mild atelectasis the lung base compared to old exam. Urinary analysis positive for leukocyte esterase. Urine culture has been ordered. Blood culture ordered. Dr. Bedoya consulted for urology. At this time patient denies chest pain or shortness of breath. Patient denies nausea vomiting or diarrhea. Patient is still complaining of some abdominal pain. Espinosa catheter is in place. On 05/23/2018 patient is currently alert and oriented 3. Patient is resting comfortably in bed. This time patient denies chest pain or shortness of breath. Patient denies nausea vomiting or diarrhea. Patient is complaining of constipation. Lactulose has been ordered. On 05/24/2018 patient is currently alert and oriented 3. Urine is positive for MRSA. Patient switched to IV vancomycin. Infectious disease consult has been placed. This time patient denies chest pain or shortness of breath. Patient denies nausea vomiting or diarrhea. Patient is complaining of constipation. Will order additional dose of lactulose 05/25/2018 patient is currently alert and oriented 3. Patient is currently receiving vancomycin IV antibiotic for MRSA in his urine. Infectious disease is following. At this time patient denies chest pain or shortness breath. Patient denies nausea vomiting or diarrhea. Patient refused enema for constipation yesterday. Encouraged patient. Patient states abdominal pain is improving. Objective - Vital Signs Vital signs: Vital Signs Temp 96.8 F L 05/25/18 06:01 Pulse 62 05/25/18 06:01 Resp 18 05/25/18 06:01 BP 145/60 05/25/18 06:01 Pulse Ox 100 05/25/18 06:01 Intake & Output 05/24/18 05/25/18 05/25/18 18:59 06:59 18:59 Intake Total 480 200 Output Total 500 525 Balance -20 -325 Weight 77.111 kg Intake: Oral 480 200 Output: Urine 500 525 Other: Voiding Method Indwelling Catheter Indwelling Catheter Indwelling Catheter # Voids 400 # Bowel Movements 0 - Exam Head normocephalic Neck supple Lungs clear to auscultation bilaterally no wheezing or crackles Heart regular rate and rhythm S1-S2, no rub or gallop Abdomen lower abdomen tenderness to palpation. Extremities no edema Neuro alert and orientated to 3 - Labs CBC & Chem 7: 05/24/18 09:39 05/24/18 09:39 Labs: Abnormal Lab Results - Last 24 Hours (Table) 05/24/18 05/24/18 05/24/18 Range/Units 09:39 11:35 17:19 Carbon Dioxide 21 L (22-30) mmol/L Glucose 189 H (74-99) mg/dL POC Glucose (mg/dL) 133 H 169 H (75-99) mg/dL Total Protein 5.8 L (6.3-8.2) g/dL Albumin 2.9 L (3.5-5.0) g/dL 05/24/18 05/25/18 Range/Units 21:36 07:23 Carbon Dioxide (22-30) mmol/L Glucose (74-99) mg/dL POC Glucose (mg/dL) 163 H 126 H (75-99) mg/dL Total Protein (6.3-8.2) g/dL Albumin (3.5-5.0) g/dL Microbiology - Last 24 Hours (Table) 05/22/18 03:06 Blood Culture - Preliminary Blood No Growth after 72 hours 05/22/18 03:06 Urine Culture - Final Urine,Catheterized Methicillin resist S. aureus Assessment and Plan Assessment: 1. Neurogenic bladder with urine retention. CT of abdomen completed showing Ileus in the left renal pelvis without evidence of obstruction. This appears new compared to old exam. There is distended proximal small bowel. No transition point seen. This could relate to small bowel ileus. 3.3 cm aneurysm of lower abdominal aorta. No Significant change. There is mild atelectasis at the lung base that old exam. Espinosa catheter in is in place. Urology services have been consulted. Per urology patient should be discharged with Espinosa catheter in place. Patient will need to follow-up with urology services for cystoscopy in the office to determine whether or not there is no alternative chronic Espinosa catheter. 2. History of multiple sclerosis. Patient is bedbound and resides at [facility] 3. History of diabetes mellitus 4. Essential hypertension 5. Myocardial infarction with cardiac stent placement. Patient currently maintained on Plavix 6. History of COPD. No exacerbation at this time 7. Frequent UTIs. Patient does have history of cystoscopy/TURP 8. History of osteoarthritis 9. History of psoriasis 10. History of hyperlipidemia. 11. Constipation. computed tomography scan showing distended proximal small bowel. No transition point seen. This could relate to small bowel ileus. Dr. pagan consulted for surgical services. Surgical services abdominal pain likely related to UTI. Continue diet as tolerated. Lactulose has been added 12. Lower abdominal aortic aneurysm. CT scanning completed showing 3.3 cm aneurysm lower abdominal aorta. No significant change 13. UTI. Culture positive for MRSA. Infectious disease has been consulted. patient switched IV vancomycin. Per infectious disease continue vancomycin IV patient may require midline fairly 7-10 days with close outpatient follow-up DVT prophylaxis Lovenox. GI prophylaxis Protonix I performed an examination of the patient and discussed their management with the Nurse Practitioner. I have reviewed the Nurse Practitioner's notes and agree with the documented findings and plan of care
[2018-05-25 10:52] LABS: ALT 41 U/L (21-72); AST 25 U/L (17-59); Albumin 2.8 g/dL (3.5-5.0); Alkaline Phosphatase 54 U/L (38-126); Anion Gap 7 mmol/L; Blood Urea Nitrogen 17 mg/dL (9-20); Calcium 9.3 mg/dL (8.4-10.2); Carbon Dioxide 23 mmol/L (22-30); Chloride 109 mmol/L (98-107); Glucose 127 mg/dL (74-99); Potassium 4.3 mmol/L (3.5-5.1); Sodium 139 mmol/L (137-145); Total Bilirubin 0.3 mg/dL (0.2-1.3); Total Protein 5.7 g/dL (6.3-8.2)
[2018-05-25 11:53] LABS: Glucose,Whole Blood 116 mg/dL (75-99)
[2018-05-25] MEDS: SODIUM CHLORIDE 0.9% 1,000 ML IV SCH (15:29)
[2018-05-25 17:08] LABS: Glucose,Whole Blood 169 mg/dL (75-99)
[2018-05-25] MEDS: PRAVASTATIN SODIUM 40 MG TAB PO SCH (20:28)
[2018-05-25] MEDS: ASPIRIN 81 MG PO SCH (20:29)
[2018-05-25] MEDS: CALCIUM CARB-VIT D 500MG-200UN 1 EACH TAB PO SCH (20:29)
[2018-05-25 20:35] LABS: Glucose,Whole Blood 149 mg/dL (75-99)
[2018-05-26] MEDS: MORPHINE SULFATE 4 MG/ML SYRINGE IVP PRN (02:32)
[2018-05-26] MEDS: LISINOPRIL 5 MG TAB PO SCH (06:25)
[2018-05-26] MEDS: PANTOPRAZOLE 40 MG TABLET PO SCH (06:25)
[2018-05-26] MEDS: SENNOSIDES-DOCUSATE SODIUM 1 EACH TAB PO SCH (06:25)
[2018-05-26] MEDS: CITALOPRAM HYDROBROMIDE 10 MG TAB PO SCH (06:25)
[2018-05-26] MEDS: CLOPIDOGREL 75 MG TAB PO SCH (06:25)
[2018-05-26] MEDS: NAPROXEN 250 MG TAB PO SCH ×2 (06:25→17:47)
[2018-05-26] MEDS: ATENOLOL 25 MG TAB PO SCH (06:25)
[2018-05-26] MEDS: MORPHINE SULFATE 4 MG/ML SYRINGE IV PRN ×5 (06:27→22:42)
[2018-05-26] MEDS ORDERED: VANCOMYCIN TROUGH DUE 1 EACH MISC MISCELLANE ONE (07:00)
[2018-05-26 07:22] LABS: Glucose,Whole Blood 137 mg/dL (75-99)
[2018-05-26] MEDS: CHOLECALCIFEROL 1,000 UNIT TAB PO SCH (07:40)
[2018-05-26] MEDS: ENOXAPARIN 40 MG/0.4 ML SYRINGE SQ SCH (07:40)
[2018-05-26] MEDS: metFORMIN 500 MG TAB PO SCH ×2 (07:41→17:47)
[2018-05-26] MEDS: TAMSULOSIN 0.4 MG CAP.ER.24H PO SCH ×2 (07:41→21:41)
[2018-05-26] MEDS: VANCOMYCIN 1,500 MG in SODIUM CHLORIDE 0.9% 250 ML IVPB SCH (07:42)
[2018-05-26] MEDS: TRIAMCINOLONE ACET 0.5% CREAM 15 GM TUBE TOPICAL SCH ×2 (07:43→21:47)
[2018-05-26] MEDS: NYSTATIN 100,000 UNIT/GM POWD 15 GM TOPICAL SCH ×2 (07:43→21:46)
[2018-05-26] MEDS: INSULIN DETEMIR 100 UNIT/ML 10 ML VIAL SQ SCH ×2 (07:49→21:46)
[2018-05-26] MEDS: FINASTERIDE 5 MG TAB PO SCH (07:49)
[2018-05-26 08:58] LABS: Basophils % (A) 1 %; Eosinophils # (A) 0.4 k/uL (0-0.7); Eosinophils % (A) 6 %; HCT 44.1 % (39.0-53.0); HGB 14.4 gm/dL (13.0-17.5); Lymphocytes # (A) 1.3 k/uL (1.0-4.8); Lymphocytes % (A) 21 %; MCH 28.2 pg (25.0-35.0); MCHC 32.5 g/dL (31.0-37.0); MCV 86.7 fL (80.0-100.0); Mean Platelet Volume 8.2; Monocytes # (A) 0.4 k/uL (0-1.0); Monocytes % (A) 6 %; Neutrophils # (A) 3.9 k/uL (1.3-7.7); Neutrophils % (A) 64 %; Platelet Count 175 k/uL (150-450); RBC 5.09 m/uL (4.30-5.90); WBC 6.1 k/uL (3.8-10.6)
[2018-05-26 09:19] LABS: ALT 47 U/L (21-72); AST 32 U/L (17-59); Albumin 2.9 g/dL (3.5-5.0); Alkaline Phosphatase 60 U/L (38-126); Anion Gap 8 mmol/L; Blood Urea Nitrogen 15 mg/dL (9-20); Calcium 9.1 mg/dL (8.4-10.2); Carbon Dioxide 22 mmol/L (22-30); Chloride 110 mmol/L (98-107); Glucose 129 mg/dL (74-99); Potassium 4.6 mmol/L (3.5-5.1); Sodium 140 mmol/L (137-145); Total Bilirubin 0.3 mg/dL (0.2-1.3); Total Protein 5.7 g/dL (6.3-8.2)
--- NOTE | 2018-05-26 09:24 | PN ---
PROGRESS NOTE DATE OF SERVICE: 05/25/2018 REASON FOR FOLLOWUP: MRSA urinary tract infection. INTERVAL HISTORY: The patient is currently afebrile. He is breathing comfortably. The suprapubic pain has decreased. Patient denies having any chest pain, shortness of breath or cough and no diarrhea. PHYSICAL EXAMINATION: On examination, blood pressure 110/75 with a pulse of 57, temperature 97. He is 96% on room air. General description is a middle-aged male lying in bed in no distress. RESPIRATORY SYSTEM: Unlabored breathing, clear to auscultation anteriorly. HEART: S1, S2. Regular rate and rhythm. ABDOMEN: Soft, no tenderness. LABS: Hemoglobin is 14.5, white count 6.8 with a BUN of 17, creatinine 0.69. DIAGNOSTIC IMPRESSION AND PLAN: Patient admitted to the hospital with urinary tract infection catheter associated urine showing methicillin-resistant Staphylococcus aureus, advised to change his Espinosa catheter however RN mentioned that Urology has instructed them not change his Espinosa catheter. They will be contacted once again in view of the methicillin-resistant Staphylococcus aureus that is growing in the urine as change in Espinosa catheter will help in control of this infection. Continue with vancomycin at this point. Continue supportive care. MMODL / IJN: [id number] /
[2018-05-26] MEDS ORDERED: VANCOMYCIN IV PER PHARMACY 1 EACH MISC MISCELLANE PRN (10:18)
[2018-05-26] MEDS: SODIUM CHLORIDE 0.9% 1,000 ML IV SCH (11:24)
[2018-05-26 11:58] LABS: Glucose,Whole Blood 89 mg/dL (75-99)
--- NOTE | 2018-05-26 12:06 | P.PN ---
Subjective Progress Note Date: 05/26/18 This is 63-year-old male patient who presented to the emergency room with complaints of a urinary tract infection with significant abdominal pain. Patient currently less than cell is to his disability with multiple sclerosis. Patient is bedbound. Patient has past medical history of recurrent UTIs has required straight cath for the past few weeks. Patient has past medical history of multiple sclerosis, diabetes mellitus, hypertension, myocardial infarction, osteoarthritis, heart cath with stents, , renal disorder, GERD and COPD. CT of abdomen completed showing This in the left renal pelvis without evidence of obstruction. This appears new compared to old exam. There is distended proximal small bowel. No transition been seen. This could relate to small bowel ileus. 3.3 cm aneurysm of the left lower abdominal aorta. No significant change. There is new mild atelectasis the lung base compared to old exam. Urinary analysis positive for leukocyte esterase. Urine culture has been ordered. Blood culture ordered. Dr. Bedoya consulted for urology. At this time patient denies chest pain or shortness of breath. Patient denies nausea vomiting or diarrhea. Patient is still complaining of some abdominal pain. Espinosa catheter is in place. On 05/23/2018 patient is currently alert and oriented 3. Patient is resting comfortably in bed. This time patient denies chest pain or shortness of breath. Patient denies nausea vomiting or diarrhea. Patient is complaining of constipation. Lactulose has been ordered. On 05/24/2018 patient is currently alert and oriented 3. Urine is positive for MRSA. Patient switched to IV vancomycin. Infectious disease consult has been placed. This time patient denies chest pain or shortness of breath. Patient denies nausea vomiting or diarrhea. Patient is complaining of constipation. Will order additional dose of lactulose 05/25/2018 patient is currently alert and oriented 3. Patient is currently receiving vancomycin IV antibiotic for MRSA in his urine. Infectious disease is following. At this time patient denies chest pain or shortness breath. Patient denies nausea vomiting or diarrhea. Patient refused enema for constipation yesterday. Encouraged patient. Patient states abdominal pain is improving. On 05/26/2018 patient is currently alert and oriented 3. Patient expresses that he is very eager to get back to [place]. Discussed case with Dr. Leonard per infectious disease patient will need midline or PICC for IV vancomycin for 12 more days. At this time patient denies chest pain or shortness of breath. Patient does state he had bowel movement yesterday. Patient denies any nausea or vomiting. Patient denies any urinary burning or frequency. Patient does have catheter in place that will in place upon discharge. Objective - Vital Signs Vital signs: Vital Signs Temp 99.2 F 05/26/18 05:30 Pulse 83 05/26/18 05:30 Resp 16 05/26/18 07:40 BP 115/63 05/26/18 05:30 Pulse Ox 96 05/26/18 05:30 Intake & Output 05/25/18 05/26/18 05/26/18 18:59 06:59 18:59 Intake Total 1200 500 Output Total 850 500 Balance 350 0 Intake: Oral 1200 500 Output: Urine 850 500 Other: Voiding Method Indwelling Catheter Indwelling Catheter Indwelling Catheter # Bowel Movements 1 - Exam Head normocephalic Neck supple Lungs clear to auscultation bilaterally no wheezing or crackles Heart regular rate and rhythm S1-S2, no rub or gallop Abdomen lower abdomen tenderness to palpation. Extremities no edema Neuro alert and orientated to 3 - Labs CBC & Chem 7: 05/26/18 07:57 05/26/18 07:57 Labs: Abnormal Lab Results - Last 24 Hours (Table) 05/25/18 05/25/18 05/26/18 Range/Units 16:55 20:27 07:02 Chloride (98-107) mmol/L Creatinine (0.66-1.25) mg/dL Glucose (74-99) mg/dL POC Glucose (mg/dL) 169 H 149 H 137 H (75-99) mg/dL Total Protein (6.3-8.2) g/dL Albumin (3.5-5.0) g/dL Vancomycin Trough ug/mL 05/26/18 05/26/18 Range/Units 07:57 07:57 Chloride 110 H (98-107) mmol/L Creatinine 0.63 L (0.66-1.25) mg/dL Glucose 129 H (74-99) mg/dL POC Glucose (mg/dL) (75-99) mg/dL Total Protein 5.7 L (6.3-8.2) g/dL Albumin 2.9 L (3.5-5.0) g/dL Vancomycin Trough 46.2 H* ug/mL Microbiology - Last 24 Hours (Table) 05/22/18 03:06 Blood Culture - Preliminary Blood No Growth after 96 hours Assessment and Plan Assessment: 1. Neurogenic bladder with urine retention. CT of abdomen completed showing Ileus in the left renal pelvis without evidence of obstruction. This appears new compared to old exam. There is distended proximal small bowel. No transition point seen. This could relate to small bowel ileus. 3.3 cm aneurysm of lower abdominal aorta. No Significant change. There is mild atelectasis at the lung base that old exam. Espinosa catheter in is in place. Urology services have been consulted. Per urology patient should be discharged with Espinosa catheter in place. Patient will need to follow-up with urology services for cystoscopy in the office to determine whether or not there is no alternative chronic Espinosa catheter. 2. History of multiple sclerosis. Patient is bedbound and resides at [facility] 3. History of diabetes mellitus 4. Essential hypertension 5. Myocardial infarction with cardiac stent placement. Patient currently maintained on Plavix 6. History of COPD. No exacerbation at this time 7. Frequent UTIs. Patient does have history of cystoscopy/TURP 8. History of osteoarthritis 9. History of psoriasis 10. History of hyperlipidemia. 11. Constipation. computed tomography scan showing distended proximal small bowel. No transition point seen. This could relate to small bowel ileus. Dr. pagan consulted for surgical services. Surgical services abdominal pain likely related to UTI. Continue diet as tolerated. Lactulose has been added 12. Lower abdominal aortic aneurysm. CT scanning completed showing 3.3 cm aneurysm lower abdominal aorta. No significant change 13. UTI. Culture positive for MRSA. Infectious disease has been consulted. patient switched IV vancomycin. Discussed case with infectious disease. Patient to get midline and vancomycin outpatient. Discussed with pharmacy will redraw Vanco trough tonight and adjust dosage tomorrow. DVT prophylaxis Lovenox. GI prophylaxis Protonix I performed an examination of the patient and discussed their management with the Nurse Practitioner. I have reviewed the Nurse Practitioner's notes and agree with the documented findings and plan of care
--- NOTE | 2018-05-26 15:47 | CDI ---
Last Revision, June 2017 Documentation Clarification Form Date: 05/26/2018 3:26:49 PM From: Shannon Elliott RN, CCDS Admit Date: 05/23/2018 4:29:00 PM Patient Name: Krish Kaminski Visit Number: [id number] Discharge Date: ATTENTION: The Clinical Documentation Specialists (CDI) and [facility] Coding Staff appreciate your assistance in clarifying documentation. Please respond to the clarification below the line at the bottom and electronically sign. The CDI & [facility] Coding staff will review the response and follow-up if needed. Please note: Queries are made part of the Legal Health Record. If you have any questions, please contact the author of this message via ITS. Logan Lambert MD A diagnosis of UTI has been documented in the ED, H&P and your ongoing progress notes History/Risk factors: Neurogenic bladder with urine retention, frequent UTI's, multiple Sclerosis, Per documentation by Urology on 05/22/18 an indwelling catheter was placed by the care home. Patient was admitted with an indwelling Espinosa catheter Clinical Indicators: Noted over the last several weeks he has had problems not being able to empty his bladder. He developed suprapubic bladder pain, was not able to urinate at all. A Espinosa catheter was inserted at the [facility]. Urinalysis: Cloudy, Moderate blood, Urine Nitrite -Positive Ur Leukocyte Estrase -Large, Urine WBC >182 Urine culture: MRSA Lab results: WBC 12.7 Treatment: Monitor Labs, I/O, Vancomycin IV (PTD ) In your professional opinion, can you please clarify the etiology of the UTI, if known? Espinosa catheter UTI UTI not related to Espinosa catheter Other condition, please specify Unable to determine If an infective organism is present, please specify cause and effect relationship if applicable. Please continue to document in your progress notes and discharge summary in order to capture severity of illness and risk of mortality. Include clinical findings that support your diagnosis. Espinosa catheter associated UTI MTDD
[2018-05-26] MEDS: Glatiramer Acetate [Copaxone] SQ SCH (16:07)
[2018-05-26 17:19] LABS: Glucose,Whole Blood 146 mg/dL (75-99)
[2018-05-26 20:40] LABS: Glucose,Whole Blood 144 mg/dL (75-99)
[2018-05-26] MEDS: PRAVASTATIN SODIUM 40 MG TAB PO SCH (21:41)
[2018-05-26] MEDS: CALCIUM CARB-VIT D 500MG-200UN 1 EACH TAB PO SCH (21:41)
[2018-05-26] MEDS: ASPIRIN 81 MG PO SCH (21:41)
[2018-05-26] MEDS ORDERED: VANCOMYCIN 1,250 MG in SODIUM CHLORIDE 0.9% 250 ML IVPB SCH (22:00)
--- NOTE | 2018-05-27 02:31 | PN ---
PROGRESS NOTE DATE OF SERVICE: 05/26/2018. REASON FOR FOLLOWUP: MRSA complicated urinary tract infection. INTERVAL HISTORY: The patient is afebrile. He has been breathing comfortably. Denies significant chest pain or cough. No abdominal pain. No nausea, vomiting and no diarrhea. EXAMINATION: Blood pressure 122/69 with a pulse of 60, temperature is 98.5. He is 98% on room air. General description is a middle-aged male lying in bed in no distress. Respiratory system: Unlabored breathing. Clear to auscultation anteriorly. Heart S1, S2. Regular rate and rhythm. Abdomen soft, no tenderness. LABS: Hemoglobin is 14.4, white count 6.1 with a BUN of 15, creatinine 0.67, white count of reported to be high 46.2, however repeat has been 16.9. DIAGNOSTIC IMPRESSION AND PLAN: Patient with a complicated urinary tract infection with MRSA Espinosa could not be changed per instruction of urology. Vanco random has been 16.9, trough more likely not corrected. Plan will be to continue with IV vancomycin, pharmacy to dose, target of 15 for another 7-10 days to finish course of therapy with close outpatient followup. Plan of care discussed with the nurse practitioner for the primary team. MMODL / IJN: [id number] /
[2018-05-27] MEDS: MORPHINE SULFATE 4 MG/ML SYRINGE IV PRN (03:52)
[2018-05-27] MEDS: ATENOLOL 25 MG TAB PO SCH (06:13)
[2018-05-27] MEDS: SENNOSIDES-DOCUSATE SODIUM 1 EACH TAB PO SCH (06:13)
[2018-05-27] MEDS: LISINOPRIL 5 MG TAB PO SCH (06:13)
[2018-05-27] MEDS: FINASTERIDE 5 MG TAB PO SCH (06:13)
[2018-05-27] MEDS: CLOPIDOGREL 75 MG TAB PO SCH (06:13)
[2018-05-27] MEDS: CITALOPRAM HYDROBROMIDE 10 MG TAB PO SCH (06:13)
[2018-05-27] MEDS: SODIUM CHLORIDE 0.9% 1,000 ML IV SCH (06:14)
[2018-05-27 07:07] LABS: Glucose,Whole Blood 131 mg/dL (75-99)
[2018-05-27 07:55] VITALS: BP 115/69; PULSE 57; RESP 16; TEMP 97.8
[2018-05-27] MEDS: ENOXAPARIN 40 MG/0.4 ML SYRINGE SQ SCH (08:21)
[2018-05-27] MEDS: MORPHINE SULFATE 4 MG/ML SYRINGE IVP PRN ×2 (08:21→12:22)
[2018-05-27] MEDS: PANTOPRAZOLE 40 MG TABLET PO SCH (08:21)
[2018-05-27] MEDS: metFORMIN 500 MG TAB PO SCH (08:22)
[2018-05-27] MEDS: TAMSULOSIN 0.4 MG CAP.ER.24H PO SCH (08:22)
[2018-05-27] MEDS: NAPROXEN 250 MG TAB PO SCH (08:22)
[2018-05-27] MEDS: CHOLECALCIFEROL 1,000 UNIT TAB PO SCH (08:22)
[2018-05-27] MEDS: INSULIN DETEMIR 100 UNIT/ML 10 ML VIAL SQ SCH (08:28)
[2018-05-27 12:13] LABS: Glucose,Whole Blood 112 mg/dL (75-99)
--- NOTE | 2018-05-27 13:52 | P.DS ---
Providers Date of admission: 05/23/18 16:29 Expected date of discharge: 05/27/18 Attending physician: Logan Brumfield Consults: 05/22/18 10:13 Consult Physician Routine Consulting Provider: Hermes Bedoya Consult Reason/Comments: UTI, MS, urinary retention Do you want consulting provider notified?: Yes 05/22/18 14:07 Consult Physician Routine Consulting Provider: Jerrell Vidal Consult Reason/Comments: ct scan. Small bowel illeus Do you want consulting provider notified?: Yes 05/24/18 11:59 Consult Physician Routine Consulting Provider: Shira Leonard Consult Reason/Comments: MRSA urine culture Do you want consulting provider notified?: Yes Primary care physician: Logan Octaviano [facility] Course: Diagnoses on discharge: 1. Neurogenic bladder with urine retention. CT of abdomen completed showing Ileus in the left renal pelvis without evidence of obstruction. This appears new compared to old exam. There is distended proximal small bowel. No transition point seen. This could relate to small bowel ileus. 3.3 cm aneurysm of lower abdominal aorta. No Significant change. There is mild atelectasis at the lung base that old exam. Espinosa catheter in is in place. Urology services have been consulted. Per urology patient should be discharged with Espinosa catheter in place. Patient will need to follow-up with urology services for cystoscopy in the office to determine whether or not there is no alternative chronic Espinosa catheter. 2. History of multiple sclerosis. Patient is bedbound and resides at [facility] 3. History of diabetes mellitus 4. Essential hypertension 5. Myocardial infarction with cardiac stent placement. Patient currently maintained on Plavix 6. History of COPD. No exacerbation at this time 7. Frequent UTIs. Patient does have history of cystoscopy/TURP 8. History of osteoarthritis 9. History of psoriasis 10. History of hyperlipidemia. 11. Constipation. computed tomography scan showing distended proximal small bowel. No transition point seen. This could relate to small bowel ileus. Dr. pagan consulted for surgical services. Surgical services abdominal pain likely related to UTI. Continue diet as tolerated. Lactulose has been added 12. Lower abdominal aortic aneurysm. CT scanning completed showing 3.3 cm aneurysm lower abdominal aorta. No significant change 13. UTI. Culture positive for MRSA. Infectious disease has been consulted. patient switched IV vancomycin. Discussed case with infectious disease. Patient to get midline and vancomycin outpatient. Discussed with pharmacy will redraw Vanco trough tonight and adjust dosage tomorrow. Hospital Course: This is 63-year-old male patient who presented to the emergency room with complaints of a urinary tract infection with significant abdominal pain. Patient currently less than cell is to his disability with multiple sclerosis. Patient is bedbound. Patient has past medical history of recurrent UTIs has required straight cath for the past few weeks. Patient has past medical history of multiple sclerosis, diabetes mellitus, hypertension, myocardial infarction, osteoarthritis, heart cath with stents, , renal disorder, GERD and COPD. CT of abdomen completed showing This in the left renal pelvis without evidence of obstruction. This appears new compared to old exam. There is distended proximal small bowel. No transition been seen. This could relate to small bowel ileus. 3.3 cm aneurysm of the left lower abdominal aorta. No significant change. There is new mild atelectasis the lung base compared to old exam. Urinary analysis positive for leukocyte esterase. Urine culture has been ordered. Blood culture ordered. Dr. Bedoya consulted for urology. At this time patient denies chest pain or shortness of breath. Patient denies nausea vomiting or diarrhea. Patient is still complaining of some abdominal pain. Espinosa catheter is in place. On 05/23/2018 patient is currently alert and oriented 3. Patient is resting comfortably in bed. This time patient denies chest pain or shortness of breath. Patient denies nausea vomiting or diarrhea. Patient is complaining of constipation. Lactulose has been ordered. On 05/24/2018 patient is currently alert and oriented 3. Urine is positive for MRSA. Patient switched to IV vancomycin. Infectious disease consult has been placed. This time patient denies chest pain or shortness of breath. Patient denies nausea vomiting or diarrhea. Patient is complaining of constipation. Will order additional dose of lactulose 05/25/2018 patient is currently alert and oriented 3. Patient is currently receiving vancomycin IV antibiotic for MRSA in his urine. Infectious disease is following. At this time patient denies chest pain or shortness breath. Patient denies nausea vomiting or diarrhea. Patient refused enema for constipation yesterday. Encouraged patient. Patient states abdominal pain is improving. On 05/26/2018 patient is currently alert and oriented 3. Patient expresses that he is very eager to get back to [place]. Discussed case with Dr. Horacio per infectious disease patient will need midline or PICC for IV vancomycin for 12 more days. At this time patient denies chest pain or shortness of breath. Patient does state he had bowel movement yesterday. Patient denies any nausea or vomiting. Patient denies any urinary burning or frequency. Patient does have catheter in place that will in place upon discharge. On 05/27/2018 patient is doing better he is alert and oriented 3 in no apparent distress he is feeling well midline has been placed patient can be discharged back to [facility] today he will continue IV vancomycin for 10 days starting tomorrow Plan - Discharge Summary Discharge Rx Participant: No New Discharge Prescriptions: New Nystatin 100,000 Unit/gm Powd [Mycostatin Powder] 1 applic TOPICAL BID applic Vancomycin 1,250 mg IVPB Q24H vial Continue Clopidogrel [Plavix] 75 mg PO DAILY@0600 Atenolol [Tenormin] 25 mg PO DAILY@0600 Glatiramer Acetate [Copaxone] 40 mg SQ MOWEFR@1700 Finasteride [Proscar] 5 mg PO DAILY@0600 Acetaminophen Tab [Tylenol] 500 mg PO Q6H PRN PRN Reason: Pain Point Relief Gel 1 applic TOPICAL QID PRN PRN Reason: Pain Ipratropium-Albuterol Nebulize [Duoneb 0.5 mg-3 mg/3 ml Soln] 3 ml INHALATION RT-Q2H PRN PRN Reason: Shortness Of Breath Bisacodyl [Dulcolax] 10 mg RECTAL Q72H PRN PRN Reason: Constipation Triamcinolone 0.5% Cream [Kenalog 0.5% Cream] 1 applic TOPICAL BID Naproxen Sodium [Aleve] 220 mg PO BID@0600,1800 Cholecalciferol (Vitamin D3) [Vitamin D3] 2,000 unit PO DAILY metFORMIN HCL [Glucophage Xr] 1,000 mg PO DAILY@0600 Lisinopril [Prinivil] 5 mg PO DAILY@0600 Citalopram Hydrobromide [CeleXA] 10 mg PO DAILY@0600 Sennosides/Docusate Sodium [Senna-S Laxative Tablet] 1 tab PO DAILY@0630 Pravastatin Sodium [Pravachol] 40 mg PO HS Omeprazole 20 mg PO DAILY Insulin Detemir [Levemir] 30 unit SQ DAILY Insulin Detemir [Levemir] 20 unit SQ HS Calcium Carbonate/Vitamin D3 [Calcium 600-Vit D3 200 Tablet] 1 tab PO HS Aspirin 81 mg PO HS Baclofen (Unknown Dose) 1 tab PO HS Mylanta 20 ml PO Q4H PRN PRN Reason: HEARTBURN/INDIGESTION Tamsulosin HCl [Flomax] 0.4 mg PO BID Discontinued Acetaminophen [Tylenol Arthritis] 650 mg PO DAILY@1100 Discharge Medication List Atenolol [Tenormin] 25 mg PO DAILY@0600 08/10/14 [History] Clopidogrel [Plavix] 75 mg PO DAILY@0600 08/10/14 [History] Glatiramer Acetate [Copaxone] 40 mg SQ MOWEFR@1700 08/10/14 [History] Finasteride [Proscar] 5 mg PO DAILY@0600 09/27/14 [History] Acetaminophen Tab [Tylenol] 500 mg PO Q6H PRN 05/22/18 [History] Aspirin 81 mg PO HS 05/22/18 [History] Baclofen (Unknown Dose) 1 tab PO HS 05/22/18 [History] Bisacodyl [Dulcolax] 10 mg RECTAL Q72H PRN 05/22/18 [History] Calcium Carbonate/Vitamin D3 [Calcium 600-Vit D3 200 Tablet] 1 tab PO HS [History] Cholecalciferol (Vitamin D3) [Vitamin D3] 2,000 unit PO DAILY 05/22/18 [History] Citalopram Hydrobromide [CeleXA] 10 mg PO DAILY@0600 05/22/18 [History] Insulin Detemir [Levemir] 20 unit SQ HS 05/22/18 [History] Insulin Detemir [Levemir] 30 unit SQ DAILY 05/22/18 [History] Ipratropium-Albuterol Nebulize [Duoneb 0.5 mg-3 mg/3 ml Soln] 3 ml INHALATION RT -Q2H PRN 05/22/18 [History] Lisinopril [Prinivil] 5 mg PO DAILY@0600 05/22/18 [History] Mylanta 20 ml PO Q4H PRN 05/22/18 [History] Naproxen Sodium [Aleve] 220 mg PO BID@0600,1800 05/22/18 [History] Omeprazole 20 mg PO DAILY 05/22/18 [History] Point Relief Gel 1 applic TOPICAL QID PRN 05/22/18 [History] Pravastatin Sodium [Pravachol] 40 mg PO HS 05/22/18 [History] Sennosides/Docusate Sodium [Senna-S Laxative Tablet] 1 tab PO DAILY@0630 [History] Tamsulosin HCl [Flomax] 0.4 mg PO BID 05/22/18 [History] Triamcinolone 0.5% Cream [Kenalog 0.5% Cream] 1 applic TOPICAL BID 05/22/18 [ History] metFORMIN HCL [Glucophage Xr] 1,000 mg PO DAILY@0600 05/22/18 [History] Nystatin 100,000 Unit/gm Powd [Mycostatin Powder] 1 applic TOPICAL BID applic 05/27/18 [Rx] Vancomycin 1,250 mg IVPB Q24H vial 05/27/18 [Rx] Follow up Appointment(s)/Referral(s): Logan Brumfield MD [Primary Care Provider] - 1-2 days Shira Leonard MD [STAFF PHYSICIAN] - 1 Week
--- NOTE | 2018-05-28 06:09 | PN ---
PROGRESS NOTE DATE OF SERVICE: 05/27/2018 REASON FOR FOLLOWUP: MRSA urinary tract infection. INTERVAL HISTORY: The patient was seen on rounds this afternoon. The patient has been afebrile. He was breathing comfortably. Denies having any chest pain, shortness of breath, cough. No abdominal pain, no diarrhea. EXAMINATION: Blood pressure is 115/69 with a pulse of 57, temperature is ( ). He is 94% on room air. General description is a middle-aged male lying in bed in no distress. Respiratory System: Unlabored breathing, clear to auscultation anteriorly. Heart: S1, S2. Regular rate and rhythm. Abdomen: Soft, no tenderness. LABS: No new labs have been obtained today. DIAGNOSTIC IMPRESSION AND PLAN: Patient with MRSA complicated urinary tract infection. The patient did have a urinary retention requiring Espinosa catheter ( ) per the urology ( ). He will continue with vancomycin pharmacy to dose target of ( ) course of therapy with close outpatient followup. MMODL / IJN: [id number] /
== END 2018-05-27 14:47 | DRG 699 ==
LOC: EC 02:43 → 4MS4W 06:07 → OBSVTOIN 05-23 16:29 → 4MS4W 05-24 11:55
PROVIDERS: ADMIT Internal Medicine; ATTEND Internal Medicine
PROC: 05HY33Z Insertion of Infusion Device into Upper Vein, Percutaneous Approach (ICD-10-PCS; principal; 2018-05-26 14:30)
DX: T83.511A Infection and inflammatory reaction due to indwelling urethral catheter, initial encounter (principal); J98.11 Atelectasis; K56.7 Ileus, unspecified; N39.0 Urinary tract infection, site not specified; B95.62 Methicillin resistant Staphylococcus aureus infection as the cause of diseases classified elsewhere; E78.5 Hyperlipidemia, unspecified; F17.200 Nicotine dependence, unspecified, uncomplicated; G35 Multiple sclerosis; I10 Essential (primary) hypertension; I25.2 Old myocardial infarction; I71.4 Abdominal aortic aneurysm, without rupture; J44.9 Chronic obstructive pulmonary disease, unspecified; K21.9 Gastro-esophageal reflux disease without esophagitis; N20.0 Calculus of kidney; N31.9 Neuromuscular dysfunction of bladder, unspecified; E55.9 Vitamin D deficiency, unspecified; G89.29 Other chronic pain; L40.9 Psoriasis, unspecified; M19.90 Unspecified osteoarthritis, unspecified site; M47.816 Spondylosis without myelopathy or radiculopathy, lumbar region; E11.51 Type 2 diabetes mellitus with diabetic peripheral angiopathy without gangrene; E11.40 Type 2 diabetes mellitus with diabetic neuropathy, unspecified; I25.10 Atherosclerotic heart disease of native coronary artery without angina pectoris; M54.9 Dorsalgia, unspecified; R33.9 Retention of urine, unspecified; K59.00 Constipation, unspecified; Z74.01 Bed confinement status; Z79.02 Long term (current) use of antithrombotics/antiplatelets; Z79.4 Long term (current) use of insulin; Z79.899 Other long term (current) drug therapy; Z99.3 Dependence on wheelchair; Z87.440 Personal history of urinary (tract) infections; Z95.5 Presence of coronary angioplasty implant and graft; Z87.442 Personal history of urinary calculi; Z88.8 Allergy status to other drugs, medicaments and biological substances; Z80.6 Family history of leukemia; Z83.3 Family history of diabetes mellitus; Y84.6 Urinary catheterization as the cause of abnormal reaction of the patient, or of later complication, without mention of misadventure at the time of the procedure
CPT/HCPCS: 36415; 36569; 74177; 76937; 80053; 80202; 81001; 83036; 83605; 85025; 87040; 87077; 87086; 87186; 96361; 96365; 96375; 99285

== ENCOUNTER 2018-06-30 03:20 | Emergency (ER) | payer MEDICARE, OTHER ==
[2018-06-30 03:34] VITALS: RESP 18; TEMP 98.2
[2018-06-30] MEDS ORDERED: MORPHINE SULFATE 2 MG/ML SYRINGE IM STA (04:47)
[2018-06-30] MEDS ORDERED: MORPHINE SULFATE 2 MG/ML SYRINGE IVP STA (04:51)
--- NOTE | 2018-06-30 05:02 | ED ---
Abdominal Pain HPI - General Chief Complaint: Urogenital Stated Complaint: male Time Seen by Provider: 06/30/18 04:48 Source: patient, EMS - History of Present Illness Initial Comments: This patient is 63-year-old man transferred [facility] to be evaluated for low abdominal pain. The patient started having pains in the morning. long-term staff felt that he may be having issues related to the Payton catheter that he has, as the pain was in the suprapubic area. His catheter was changed twice, but he does continue to have the pains. The pains are intermittent, cramping, moderate intensity. No associated symptoms. MD Complaint: abdominal pain Onset/Timin -: hour(s) Location: suprapubic Radiation: none Migration to: no migration Severity: moderate Quality: cramping Consistency: intermittent Improves With: nothing Worsens With: nothing Associated Symptoms: denies other symptoms - Related Data Home Medications Medication Instructions Recorded Confirmed Atenolol [Tenormin] 25 mg PO DAILY@0600 08/10/14 06/30/18 Clopidogrel [Plavix] 75 mg PO DAILY@0600 08/10/14 06/30/18 Glatiramer Acetate [Copaxone] 40 mg SQ MOWEFR@1700 08/10/14 06/30/18 Finasteride [Proscar] 5 mg PO DAILY@0600 09/27/14 06/30/18 Acetaminophen Tab [Tylenol] 500 mg PO Q6H PRN 05/22/18 06/30/18 Aspirin 81 mg PO HS 05/22/18 06/30/18 Baclofen (Unknown Dose) 1 tab PO HS 05/22/18 06/30/18 Bisacodyl [Dulcolax] 10 mg RECTAL Q72H PRN 05/22/18 06/30/18 Calcium Carbonate/Vitamin D3 1 tab PO HS 05/22/18 06/30/18 [Calcium 600-Vit D3 200 Tablet] Cholecalciferol (Vitamin D3) 2,000 unit PO DAILY 05/22/18 06/30/18 [Vitamin D3] Citalopram Hydrobromide [CeleXA] 10 mg PO DAILY@0600 05/22/18 06/30/18 Insulin Detemir [Levemir] 20 unit SQ HS 05/22/18 06/30/18 Insulin Detemir [Levemir] 30 unit SQ DAILY 05/22/18 06/30/18 Ipratropium-Albuterol Nebulize 3 ml INHALATION RT-Q2H PRN 05/22/18 06/30/18 [Duoneb 0.5 mg-3 mg/3 ml Soln] Lisinopril [Prinivil] 5 mg PO DAILY@0600 05/22/18 06/30/18 Mylanta 20 ml PO Q4H PRN 05/22/18 06/30/18 Naproxen Sodium [Aleve] 220 mg PO BID@0600,1800 05/22/18 06/30/18 Omeprazole 20 mg PO DAILY 05/22/18 06/30/18 Point Relief Gel 1 applic TOPICAL QID PRN 05/22/18 06/30/18 Pravastatin Sodium [Pravachol] 40 mg PO HS 05/22/18 06/30/18 Sennosides/Docusate Sodium 1 tab PO DAILY@0630 05/22/18 06/30/18 [Senna-S Laxative Tablet] Tamsulosin HCl [Flomax] 0.4 mg PO BID 05/22/18 06/30/18 Triamcinolone 0.5% Cream [Kenalog 1 applic TOPICAL BID 05/22/18 06/30/18 0.5% Cream] metFORMIN HCL [Glucophage Xr] 1,000 mg PO DAILY@0600 05/22/18 06/30/18 Previous Rx's Medication Instructions Recorded Nystatin 100,000 Unit/gm Powd 1 applic TOPICAL BID applic 05/27/18 [Mycostatin Powder] Vancomycin 1,250 mg IVPB Q24H vial 05/27/18 Levofloxacin [Levaquin] 750 mg PO DAILY #7 tab 06/30/18 Allergies Allergy/AdvReac Type Severity Reaction Status Date / Time ibuprofen AdvReac Nausea Verified 06/30/18 04:29 Review of Systems ROS Statement: Those systems with pertinent positive or pertinent negative responses have been documented in the HPI. ROS Other: All systems not noted in ROS Statement are negative. Constitutional: Denies: fever, chills Respiratory: Denies: cough, dyspnea Cardiovascular: Denies: chest pain, palpitations Gastrointestinal: Reports: abdominal pain. 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 Last Myocardial Infarction Date:: 2004 History of Any Multi-Drug Resistant Organisms: MRSA Date of last positivie culture/infection: 05/22/18 MDRO Source:: URINE MRSA Past Surgical History: Heart Catheterization With Stent, Prostate Surgery Additional Past Surgical History / Comment(s): 2004 PTCA with 3 stents, laser cystoscopy/litotripsy with double J catheter insertion and eventual removal, cystoscopy/TURP, hemorhoids, L carpal tunnel release, colonoscopy, circumcism. Past Anesthesia/Blood Transfusion Reactions: No Reported Reaction Additional Past Anesthesia/Blood Transfusion Reaction / Comment(s): Pt states he has never received blood. Date of Last Stent Placement:: 2004 Past Psychological History: No Psychological Hx Reported Smoking Status: Current every day smoker - Past Family History Father Family Medical History: Cancer Additional Family Medical History / Comment(s): Father of leukemia at the age of 40 yrs. Mother Family Medical History: Diabetes Mellitus Additional Family Medical History / Comment(s): Mother is 83 yrs old. General Exam General appearance: alert, in no apparent distress Head exam: Present: atraumatic, normocephalic Eye exam: Present: normal appearance. Absent: scleral icterus, conjunctival injection ENT exam: Present: normal oropharynx Respiratory exam: Present: normal lung sounds bilaterally. Absent: respiratory distress, wheezes, rales, rhonchi, stridor Cardiovascular Exam: Present: regular rate, normal rhythm, normal heart sounds. Absent: systolic murmur, diastolic murmur, rubs, gallop GI/Abdominal exam: Present: soft, tenderness (Suprapubic tenderness without rebound or guarding). Absent: distended, guarding, rebound, rigid, mass Extremities exam: Present: normal inspection, normal capillary refill. Absent: pedal edema, calf tenderness Back exam: Present: normal inspection. Absent: CVA tenderness (R), CVA tenderness (L) Neurological exam: Present: alert Skin exam: Present: warm, dry, intact, normal color. Absent: rash Course Vital Signs 06/30/18 03:30 Temperature 98.2 F Pulse Rate 89 Respiratory 18 Rate Blood Pressure 124/83 O2 Sat by Pulse 96 Oximetry Medical Decision Making - Lab Data Result diagrams: 06/30/18 04:45 06/30/18 04:45 Lab Results 06/30/18 06/30/18 06/30/18 Range/Units 04:45 04:45 06:06 WBC 13.3 H (3.8-10.6) k/uL RBC 5.57 (4.30-5.90) m/uL Hgb 15.0 (13.0-17.5) gm/dL Hct 46.0 (39.0-53.0) % MCV 82.7 (80.0-100.0) fL MCH 26.8 (25.0-35.0) pg MCHC 32.5 (31.0-37.0) g/dL RDW 14.7 (11.5-15.5) % Plt Count 231 (150-450) k/uL Neutrophils % 79 % Lymphocytes % 13 % Monocytes % 5 % Eosinophils % 1 % Basophils % 0 % Neutrophils # 10.5 H (1.3-7.7) k/uL Lymphocytes # 1.7 (1.0-4.8) k/uL Monocytes # 0.6 (0-1.0) k/uL Eosinophils # 0.2 (0-0.7) k/uL Basophils # 0.0 (0-0.2) k/uL Sodium 135 L (137-145) mmol/L Potassium 4.8 (3.5-5.1) mmol/L Chloride 104 (98-107) mmol/L Carbon Dioxide 20 L (22-30) mmol/L Anion Gap 11 mmol/L BUN 30 H (9-20) mg/dL Creatinine 0.74 (0.66-1.25) mg/dL Est GFR (CKD-EPI)AfAm >90 (>60 ml/min/1.73 sqM) Est GFR (CKD-EPI)NonAf >90 (>60 ml/min/1.73 sqM) Glucose 158 H (74-99) mg/dL Calcium 9.9 (8.4-10.2) mg/dL Total Bilirubin 0.5 (0.2-1.3) mg/dL AST 19 (17-59) U/L ALT 36 (21-72) U/L Alkaline Phosphatase 92 (38-126) U/L Total Protein 7.3 (6.3-8.2) g/dL Albumin 4.0 (3.5-5.0) g/dL Amylase 77 (30-110) U/L Lipase 137 (23-300) U/L Urine Color Yellow Urine Appearance Turbid (Clear) Urine pH 7.0 (5.0-8.0) Ur Specific [place] 1.017 (1.001-1.035) Urine Protein 1+ H (Negative) Urine Glucose (UA) Trace H (Negative) Urine Ketones 1+ H (Negative) Urine Blood Moderate H (Negative) Urine Nitrite Negative (Negative) Urine Bilirubin Negative (Negative) Urine Urobilinogen <2.0 (<2.0) mg/dL Ur Leukocyte Esterase Large H (Negative) Urine RBC 110 H (0-5) /hpf Urine WBC >182 H (0-5) /hpf Urine WBC Clumps Few H (None) /hpf Urine Mucus Rare H (None) /hpf Disposition Clinical Impression: Urinary tract infection Disposition: HOME SELF-CARE Condition: Good Instructions: Urinary Tract Infection in Men (ED) Prescriptions: Levofloxacin [Levaquin] 750 mg PO DAILY #7 tab Is patient prescribed a controlled substance at d/c from ED?: No Referrals: Logan Brumfield MD [Primary Care Provider] - 1-2 days
[2018-06-30 05:10] LABS: Basophils % (A) 0 %; Eosinophils # (A) 0.2 k/uL (0-0.7); Eosinophils % (A) 1 %; Lymphocytes # (A) 1.7 k/uL (1.0-4.8); Lymphocytes % (A) 13 %; MCH 26.8 pg (25.0-35.0); MCHC 32.5 g/dL (31.0-37.0); MCV 82.7 fL (80.0-100.0); Monocytes # (A) 0.6 k/uL (0-1.0); Monocytes % (A) 5 %; Neutrophils # (A) 10.5 k/uL (1.3-7.7); Neutrophils % (A) 79 %; Platelet Count 231 k/uL (150-450); RBC 5.57 m/uL (4.30-5.90); RDW 14.7 % (11.5-15.5); WBC 13.3 k/uL (3.8-10.6)
[2018-06-30 05:22] LABS: ALT 36 U/L (21-72); AST 19 U/L (17-59); Alkaline Phosphatase 92 U/L (38-126); Amylase 77 U/L (30-110); Anion Gap 11 mmol/L; Blood Urea Nitrogen 30 mg/dL (9-20); Calcium 9.9 mg/dL (8.4-10.2); Carbon Dioxide 20 mmol/L (22-30); Chloride 104 mmol/L (98-107); Glucose 158 mg/dL (74-99); Lipase 137 U/L (23-300); Potassium 4.8 mmol/L (3.5-5.1); Sodium 135 mmol/L (137-145); Total Bilirubin 0.5 mg/dL (0.2-1.3); Total Protein 7.3 g/dL (6.3-8.2)
--- NOTE | 2018-06-30 05:50 | CT ---
EXAMINATION TYPE: CT abdomen pelvis wo con DATE OF EXAM: 06/30/2018 COMPARISON: 05/22/2018 HISTORY: Lower Abdominal pain;bladder spasms CT DLP: 572.5 mGycm Automated exposure control for dose reduction was used. TECHNIQUE: Helical acquisition of images was performed from the lung bases through the pelvis. FINDINGS: There is minimal subsegmental atelectasis at the lung bases. There is no pleural effusion. Heart size is normal. There is small hiatal hernia. Liver spleen pancreas gallbladder appear normal. Bile ducts are not dil ated. There is no adrenal mass. Kidneys have normal size and contour. There is no hydronephrosis. Ure ters are not dilated. There is mild aneurysm of the lower abdominal aorta that measures up to 3 cm. There is no retroperito radha adenopathy. There is Espinosa catheter in the urinary bladder. Bladder is empty. There is no free fluid in the pelvi s. There is no inguinal hernia. There are multiple sigmoid diverticula. There is no sign of diverticu litis. The appendix appears normal. There is no mesenteric edema. Gallbladder measures 3.8 cm in diam eter. There is no sign of free air. There is no ascites. Bony pelvis is intact. Lumbar spine is intac t. I see no bony destructive process. IMPRESSION: MINIMAL SCARRING AND SUBSEGMENTAL ATELECTASIS AT THE LUNG BASES UNCHANGED. NORMAL APPENDIX. 3 CM ABDOMINAL AORTIC ANEURYSM UNCHANGED. MILD SIGMOID DIVERTICULOSIS. NO SIGN OF AN ACUTE ABDOMEN AND PELVIS.
[2018-06-30 06:26] LABS: Appearance,Urine Turbid (Clear); Bilirubin,Urine Negative (Negative); Blood,Urine Moderate (Negative); Color,Urine Yellow; Glucose,Urine (UA) Trace (Negative); Ketones,Urine 1+ (Negative); Leukocyte Esterase,Urine Large (Negative); Mucus,Urine Rare /hpf; Nitrite,Urine Negative (Negative); Protein,Urine 1+ (Negative); RBC,Urine 110 /hpf (0-5); Specific Gravity,Urine 1.017 (1.001-1.035); Urobilinogen,Urine <2.0 mg/dL (<2.0); WBC,Urine >182 /hpf (0-5)
[2018-06-30] MEDS ORDERED: LEVOFLOXACIN 750 MG TAB PO STA (06:28)
[2018-06-30 08:00] VITALS: BP 135/81; PULSE 87
== END 2018-06-30 07:58 | disposition home or self-care (01) ==
LOC: EC 03:20
DX: N39.0 Urinary tract infection, site not specified (principal); E11.9 Type 2 diabetes mellitus without complications; E78.5 Hyperlipidemia, unspecified; I10 Essential (primary) hypertension; I25.2 Old myocardial infarction; M19.90 Unspecified osteoarthritis, unspecified site; F17.200 Nicotine dependence, unspecified, uncomplicated; Z86.14 Personal history of Methicillin resistant Staphylococcus aureus infection; Z95.5 Presence of coronary angioplasty implant and graft; Z87.442 Personal history of urinary calculi; Z79.02 Long term (current) use of antithrombotics/antiplatelets; Z79.82 Long term (current) use of aspirin; Z79.4 Long term (current) use of insulin; Z79.1 Long term (current) use of non-steroidal anti-inflammatories (NSAID); Z79.899 Other long term (current) drug therapy; Z88.6 Allergy status to analgesic agent
CPT/HCPCS: 99284; 96374; 36415; 80053; 82150; 83690; 85025; 81001; 87086; 87077; 87186; 74176; J2270

== ENCOUNTER 2018-10-17 07:55 | Observation (INO) | payer MEDICARE, OTHER ==
[2018-10-17] MEDS ORDERED: SODIUM CHLORIDE 0.9% 1,000 ML IV STA (08:07)
[2018-10-17] MEDS ORDERED: methylPREDNISolone SOD SUCCI 250 MG in SODIUM CHLORIDE 0.9% 100 ML IVPB STA (08:14)
--- NOTE | 2018-10-17 08:17 | ED ---
General Adult HPI - General Chief complaint: Weakness Stated complaint: Weakness Time Seen by Provider: 10/17/18 07:56 Source: patient, EMS, RN notes reviewed, old records reviewed Mode of arrival: EMS - History of Present Illness Initial comments: 63-year-old male presenting from [facility] with progressive weakness and numbness. Patient has history of MS, he is bedbound. States that over the past 2 months he's had progressive generalized weakness, numbness, and pain. States this is typical of his MS. Denies cough or URI symptoms. Denies fever or chills. Denies chest pain or dyspnea. Denies abdominal pain nausea vomiting. He does have an indwelling Payton catheter. No recent changes in medications. - Related Data Home Medications Medication Instructions Recorded Confirmed Atenolol [Tenormin] 25 mg PO DAILY@0600 08/10/14 10/17/18 Clopidogrel [Plavix] 75 mg PO DAILY@0600 08/10/14 10/17/18 Glatiramer Acetate [Copaxone] 40 mg SQ MOWEFR@1700 08/10/14 10/17/18 Finasteride [Proscar] 5 mg PO DAILY@0600 09/27/14 10/17/18 Acetaminophen Tab [Tylenol] 500 mg PO Q6H PRN 05/22/18 10/17/18 Aspirin 81 mg PO HS 05/22/18 10/17/18 Bisacodyl [Dulcolax] 10 mg RECTAL Q72H PRN 05/22/18 10/17/18 Calcium Carbonate/Vitamin D3 1 tab PO HS 05/22/18 10/17/18 [Calcium 600-Vit D3 200 Tablet] Cholecalciferol (Vitamin D3) 2,000 unit PO DAILY 05/22/18 10/17/18 [Vitamin D3] Citalopram Hydrobromide [CeleXA] 10 mg PO DAILY@0600 05/22/18 10/17/18 Insulin Detemir (Levemir) [Levemir] 20 unit SQ HS 05/22/18 10/17/18 Insulin Detemir (Levemir) [Levemir] 30 unit SQ DAILY 05/22/18 10/17/18 Mylanta 20 ml PO Q4H PRN 05/22/18 10/17/18 Naproxen Sodium [Aleve] 220 mg PO BID@0500,1800 05/22/18 10/17/18 Omeprazole 20 mg PO DAILY 05/22/18 10/17/18 Pravastatin Sodium [Pravachol] 40 mg PO HS 05/22/18 10/17/18 Sennosides/Docusate Sodium 1 tab PO DAILY@0630 05/22/18 10/17/18 [Senna-S Laxative Tablet] Tamsulosin HCl [Flomax] 0.4 mg PO BID 05/22/18 10/17/18 Triamcinolone 0.5% Cream [Kenalog 1 applic TOPICAL BID 05/22/18 10/17/18 0.5% Cream] Acetaminophen [Tylenol 8 Hour] 650 mg PO BID 10/17/18 10/17/18 Baclofen [Lioresal] 10 mg PO TID PRN 10/17/18 10/17/18 HYDROcodone/APAP 5-325MG [[place] 1 tab PO Q6HR PRN 10/17/18 10/17/18 5-325] Allergies Allergy/AdvReac Type Severity Reaction Status Date / Time ibuprofen AdvReac Nausea Verified 10/17/18 08:03 Review of Systems ROS Statement: Those systems with pertinent positive or pertinent negative responses have been documented in the HPI. ROS Other: All systems not noted in ROS Statement are negative. Past Medical History Past Medical History: Diabetes Mellitus, Hyperlipidemia, Hypertension, Myocar dial Infarction ([place]), Musculoskeletal Disorder, Neurologic Disorder, Osteoarthritis (OA), Renal Disease, Skin Disorder Additional Past Medical History / Comment(s): multiple sclerosis diagnosed in 2004, wheelchair bound, NIDDM, hx of prostate obstruction and has had surgery, hx of urinary retention with chronic payton but not since sx corrected, UTI's, nephrolithiasis, chronic back pain, numbness and tingling bilateral feet and hands, leg spasms, psoriasis. Last Myocardial Infarction Date:: 2004 History of Any Multi-Drug Resistant Organisms: MRSA Date of last positivie culture/infection: 05/22/18 MDRO Source:: URINE MRSA Past Surgical History: Heart Catheterization With Stent, Prostate Surgery Additional Past Surgical History / Comment(s): 2005 PTCA with 3 stents, laser cystoscopy/litotripsy with double J catheter insertion and eventual removal, cystoscopy/TURP, hemorhoids, L carpal tunnel release, colonoscopy, circumcism. Past Anesthesia/Blood Transfusion Reactions: No Reported Reaction Additional Past Anesthesia/Blood Transfusion Reaction / Comment(s): Pt states he has never received blood. Date of Last Stent Placement:: 2004 Past Psychological History: Bipolar Smoking Status: Current every day smoker Past Alcohol Use History: None Reported Past Drug Use History: None Reported - Past Family History Father Family Medical History: Cancer Additional Family Medical History / Comment(s): Father of leukemia at the age of 40 yrs. Mother Family Medical History: Diabetes Mellitus Additional Family Medical History / Comment(s): Mother is 83 yrs old. General Exam General appearance: alert Head exam: Present: atraumatic, normocephalic Eye exam: Present: normal appearance, PERRL ENT exam: Present: mucous membranes dry Neck exam: Present: normal inspection. Absent: tenderness, meningismus Respiratory exam: Present: rhonchi. Absent: respiratory distress Cardiovascular Exam: Present: regular rate, normal rhythm GI/Abdominal exam: Present: soft. Absent: distended, tenderness, guarding Rectal exam: Present: other (Sacral decubitus ulcer) Extremities exam: Present: other (Bilateral lower extremity paralysis.) Neurological exam: Present: alert, motor sensory deficit (Bilateral upper extremity proximal weakness and contracture bilateral hands, paralysis bilateral lower extremities) Skin exam: Present: warm, dry Course Vital Signs 10/17/18 10/17/18 07:57 08:59 Temperature 98.4 F Pulse Rate 59 L Pulse Rate [ 59 L [employer] ] Respiratory 17 Rate Blood Pressure 93/62 O2 Sat by Pulse 99 Oximetry EKG Findings - EKG Comments: EKG Findings:: Sinus bradycardia, rate of 56, MS interval 184, QRS duration 84, QTC 407. No ST segment elevation or depression Medical Decision Making - Medical Decision Making Laboratory studies reveal white blood cell count 9.4, hemoglobin 11.4, mild hyponatremia 131, creatinine and BUN are elevated, creatinine 1.36, normal lactic acid, urinalysis consistent with urinary tract infection. Blood culture urine cultures pending. Patient is she had an IV steroids, IV antibiotics. Will be admitted for further evaluation treatment. Case discussed with Dr. Brumfield, will accept - Lab Data Result diagrams: 10/17/18 08:36 10/17/18 09:35 Lab Results 04/16/19 04/16/19 04/16/19 Range/Units 08:36 08:36 08:36 WBC 9.4 (3.8-10.6) k/uL RBC 4.52 (4.30-5.90) m/uL Hgb 11.4 L (13.0-17.5) gm/dL Hct 35.8 L (39.0-53.0) % MCV 79.2 L (80.0-100.0) fL MCH 25.3 (25.0-35.0) pg MCHC 31.9 (31.0-37.0) g/dL RDW 15.7 H (11.5-15.5) % Plt Count 481 H (150-450) k/uL Neutrophils % 80 % Lymphocytes % 9 % Monocytes % 8 % Eosinophils % 1 % Basophils % 0 % Neutrophils # 7.5 (1.3-7.7) k/uL Lymphocytes # 0.8 L (1.0-4.8) k/uL Monocytes # 0.8 (0-1.0) k/uL Eosinophils # 0.1 (0-0.7) k/uL Basophils # 0.0 (0-0.2) k/uL PT 12.6 H (9.0-12.0) sec INR 1.2 H (<1.2) APTT 27.4 (22.0-30.0) sec Sodium (137-145) mmol/L Potassium (3.5-5.1) mmol/L Chloride (98-107) mmol/L Carbon Dioxide (22-30) mmol/L Anion Gap mmol/L BUN (9-20) mg/dL Creatinine (0.66-1.25) mg/dL Est GFR (CKD-EPI)AfAm (>60 ml/min/1.73 sqM) Est GFR (CKD-EPI)NonAf (>60 ml/min/1.73 sqM) Glucose (74-99) mg/dL Plasma Lactic Acid Andi 1.2 (0.7-2.0) mmol/L Calcium (8.4-10.2) mg/dL Magnesium (1.6-2.3) mg/dL Total Bilirubin (0.2-1.3) mg/dL AST (17-59) U/L ALT (21-72) U/L Alkaline Phosphatase (38-126) U/L Creatine Kinase (55-170) U/L Total Protein (6.3-8.2) g/dL Albumin (3.5-5.0) g/dL Urine Color Urine Appearance (Clear) Urine pH (5.0-8.0) Ur Specific [place] (1.001-1.035) Urine Protein (Negative) Urine Glucose (UA) (Negative) Urine Ketones (Negative) Urine Blood (Negative) Urine Nitrite (Negative) Urine Bilirubin (Negative) Urine Urobilinogen (<2.0) mg/dL Ur Leukocyte Esterase (Negative) Urine RBC (0-5) /hpf Urine WBC (0-5) /hpf Urine WBC Clumps (None) /hpf Urine Bacteria (None) /hpf Urine Mucus (None) /hpf 10/17/18 10/17/18 Range/Units 08:36 09:35 WBC (3.8-10.6) k/uL RBC (4.30-5.90) m/uL Hgb (13.0-17.5) gm/dL Hct (39.0-53.0) % MCV (80.0-100.0) fL MCH (25.0-35.0) pg MCHC (31.0-37.0) g/dL RDW (11.5-15.5) % Plt Count (150-450) k/uL Neutrophils % % Lymphocytes % % Monocytes % % Eosinophils % % Basophils % % Neutrophils # (1.3-7.7) k/uL Lymphocytes # (1.0-4.8) k/uL Monocytes # (0-1.0) k/uL Eosinophils # (0-0.7) k/uL Basophils # (0-0.2) k/uL PT (9.0-12.0) sec INR (<1.2) APTT (22.0-30.0) sec Sodium 131 L (137-145) mmol/L Potassium 4.1 (3.5-5.1) mmol/L Chloride 101 (98-107) mmol/L Carbon Dioxide 20 L (22-30) mmol/L Anion Gap 10 mmol/L BUN 60 H (9-20) mg/dL Creatinine 1.36 H (0.66-1.25) mg/dL Est GFR (CKD-EPI)AfAm 64 (>60 ml/min/1.73 sqM) Est GFR (CKD-EPI)NonAf 55 (>60 ml/min/1.73 sqM) Glucose 137 H (74-99) mg/dL Plasma Lactic Acid Andi (0.7-2.0) mmol/L Calcium 8.4 (8.4-10.2) mg/dL Magnesium 1.6 (1.6-2.3) mg/dL Total Bilirubin 0.5 (0.2-1.3) mg/dL AST 17 (17-59) U/L ALT 32 (21-72) U/L Alkaline Phosphatase 70 (38-126) U/L Creatine Kinase 22 L (55-170) U/L Total Protein 6.2 L (6.3-8.2) g/dL Albumin 3.0 L (3.5-5.0) g/dL Urine Color Yellow Urine Appearance Turbid (Clear) Urine pH 6.5 (5.0-8.0) Ur Specific [place] 1.019 (1.001-1.035) Urine Protein 1+ H (Negative) Urine Glucose (UA) Negative (Negative) Urine Ketones Trace H (Negative) Urine Blood Small H (Negative) Urine Nitrite Positive (Negative) Urine Bilirubin Negative (Negative) Urine Urobilinogen <2.0 (<2.0) mg/dL Ur Leukocyte Esterase Large H (Negative) Urine RBC 8 H (0-5) /hpf Urine WBC >182 H (0-5) /hpf Urine WBC Clumps Many H (None) /hpf Urine Bacteria Moderate H (None) /hpf Urine Mucus Rare H (None) /hpf Disposition Clinical Impression: Dehydration, Hyponatremia, Urinary tract infection, Exacerbation of multiple sclerosis Disposition: ADMITTED IP TO THIS HOSP Condition: Stable Is patient prescribed a controlled substance at d/c from ED?: No Referrals: Logan Brumfield MD [Primary Care Provider] - 1-2 days Decision to Admit Reason: Admit from EC Decision Date: 10/17/18 Decision Time: 10:51
[2018-10-17 08:54] LABS: Basophils % (A) 0 %; Eosinophils # (A) 0.1 k/uL (0-0.7); Eosinophils % (A) 1 %; HCT 35.8 % (39.0-53.0); HGB 11.4 gm/dL (13.0-17.5); Lymphocytes # (A) 0.8 k/uL (1.0-4.8); Lymphocytes % (A) 9 %; MCH 25.3 pg (25.0-35.0); MCHC 31.9 g/dL (31.0-37.0); MCV 79.2 fL (80.0-100.0); Mean Platelet Volume 7.1; Monocytes # (A) 0.8 k/uL (0-1.0); Monocytes % (A) 8 %; Neutrophils # (A) 7.5 k/uL (1.3-7.7); Neutrophils % (A) 80 %; Platelet Count 481 k/uL (150-450); RBC 4.52 m/uL (4.30-5.90); RDW 15.7 % (11.5-15.5); WBC 9.4 k/uL (3.8-10.6)
[2018-10-17 08:59] LABS: Appearance,Urine Turbid (Clear); Bacteria,Urine Moderate /hpf; Bilirubin,Urine Negative (Negative); Blood,Urine Small (Negative); Color,Urine Yellow; Glucose,Urine (UA) Negative (Negative); Ketones,Urine Trace (Negative); Leukocyte Esterase,Urine Large (Negative); Mucus,Urine Rare /hpf; Nitrite,Urine Positive (Negative); PH, Urine 6.5 (5.0-8.0); Protein,Urine 1+ (Negative); RBC,Urine 8 /hpf (0-5); Specific Gravity,Urine 1.019 (1.001-1.035); Urobilinogen,Urine <2.0 mg/dL (<2.0); WBC,Urine >182 /hpf (0-5)
[2018-10-17 09:36] LABS: INR 1.2 (<1.2); Partial Thromboplastin Time 27.4 sec (22.0-30.0); Prothrombin Time 12.6 sec (9.0-12.0)
--- NOTE | 2018-10-17 09:37 | XR ---
EXAMINATION TYPE: XR chest 2V DATE OF EXAM: 10/17/2018 COMPARISON: 10/21/2015 HISTORY: Weakness, multiple sclerosis, total body pain TECHNIQUE: Frontal and lateral views of the chest are obtained. FINDINGS: There is no focal air space opacity, pleural effusion, or pneumothorax seen. The cardiac silhouette size is upper limits of normal. The osseous structures are intact. IMPRESSION: No acute cardiopulmonary process.
[2018-10-17] MEDS ORDERED: cefTRIAXone IN SWFI 1,000 MG/10 ML SYRINGE IVP STA (09:41)
[2018-10-17 10:06] LABS: Calcium 8.4 mg/dL (8.4-10.2); Magnesium 1.6 mg/dL (1.6-2.3); Potassium 4.1 mmol/L (3.5-5.1); Total Bilirubin 0.5 mg/dL (0.2-1.3); Total Protein 6.2 g/dL (6.3-8.2)
[2018-10-17] MEDS ORDERED: NALOXONE 0.4 MG/ML 1 ML VIAL IV PRN (10:49)
[2018-10-17] MEDS ORDERED: ACETAMINOPHEN TAB 325 MG TAB PO PRN (10:49)
[2018-10-17] MEDS ORDERED: HYDROcodone/APAP 5-325MG 1 EACH TAB PO STA (11:11)
[2018-10-17] MEDS: SODIUM CHLORIDE 0.9% 1,000 ML IV SCH (11:17)
[2018-10-17] MEDS ORDERED: ZINC OXIDE 20% OINT 28.4 GM TUBE TOPICAL PRN (12:45)
--- NOTE | 2018-10-17 12:50 | P.HPIM ---
History of Present Illness H&P Date: 10/17/18 This is a 63-year-old male sent to the ER with complaints of increased weakness. Patient currently resides at [facility]. Patient has a known past medical history of multiple sclerosis. Patient reports that he has become increasingly weak over the past 2 months. Patient was seen by his neurologist last week in which he had ordered an MRI of the patient had refused. Patient also has refused urology and infectious disease consults due to patient's recurring urinary tract infections. Patient does have an additional medical history of diabetes mellitus, hyperlipidemia, hypertension, myocardial infarction, musculoskeletal disorder, neurological disorder, gastritis, renal disease, skin disorder, heart cath with stents in 2004, urinary retention with chronic Payton and MRSA in his urine in May 2018. Patient also stated that he wanted a [facility] hospice consult placed at [facility]. Chest x-ray showing no acute cardiopulmonary process. EKG completed showing sinus bradycardia. Patient's bun 16, creatinine 1.36. UA positive for leukocyte esterase. Patient started on Rocephin urine culture ordered. Patient also started on high-dose IV Medrol for MS exacerbation. At this time patient is resting in bed. Patient is adamant that he does not want to stay in the hospital and like to return to [facility]. Patient's brother is at bedside. At this time patient denies chest pain or shortness of breath. Patient denies nausea vomiting or diarrhea. Review of Systems please refer to HPI otherwise unremarkable Past Medical History Past Medical History: Diabetes Mellitus, Hyperlipidemia, Hypertension, Myocardia l Infarction ([place]), Musculoskeletal Disorder, Neurologic Disorder, Osteoarthritis (OA), Renal Disease, Skin Disorder Additional Past Medical History / Comment(s): multiple sclerosis diagnosed in 2004, wheelchair bound, NIDDM, hx of prostate obstruction and has had surgery, hx of urinary retention with chronic payton but not since sx corrected, UTI's, nephrolithiasis, chronic back pain, numbness and tingling bilateral feet and hands, leg spasms, psoriasis. Last Myocardial Infarction Date:: 2004 History of Any Multi-Drug Resistant Organisms: MRSA Date of last positivie culture/infection: 05/22/18 MDRO Source:: URINE MRSA Past Surgical History: Heart Catheterization With Stent, Prostate Surgery Additional Past Surgical History / Comment(s): 2005 PTCA with 3 stents, laser cystoscopy/litotripsy with double J catheter insertion and eventual removal, cystoscopy/TURP, hemorhoids, L carpal tunnel release, colonoscopy, circumcism. Past Anesthesia/Blood Transfusion Reactions: No Reported Reaction Additional Past Anesthesia/Blood Transfusion Reaction / Comment(s): Pt states he has never received blood. Date of Last Stent Placement:: 2004 Past Psychological History: Bipolar Smoking Status: Current every day smoker Past Alcohol Use History: None Reported Past Drug Use History: None Reported - Past Family History Father Family Medical History: Cancer Additional Family Medical History / Comment(s): Father of leukemia at the age of 40 yrs. Mother Family Medical History: Diabetes Mellitus Additional Family Medical History / Comment(s): Mother is 83 yrs old. Medications and Allergies Home Medications Medication Instructions Recorded Confirmed Type Atenolol [Tenormin] 25 mg PO DAILY@0600 08/10/14 10/17/18 History Clopidogrel [Plavix] 75 mg PO DAILY@0600 08/10/14 10/17/18 History Glatiramer Acetate [Copaxone] 40 mg SQ MOWEFR@1700 08/10/14 10/17/18 History Finasteride [Proscar] 5 mg PO DAILY@0600 09/27/14 10/17/18 History Acetaminophen Tab [Tylenol] 500 mg PO Q6H PRN 05/22/18 10/17/18 History Aspirin 81 mg PO HS 05/22/18 10/17/18 History Bisacodyl [Dulcolax] 10 mg RECTAL Q72H PRN 05/22/18 10/17/18 History Calcium Carbonate/Vitamin D3 1 tab PO HS 05/22/18 10/17/18 History [Calcium 600-Vit D3 200 Tablet] Cholecalciferol (Vitamin D3) 2,000 unit PO DAILY 05/22/18 10/17/18 History [Vitamin D3] Citalopram Hydrobromide [CeleXA] 10 mg PO DAILY@0600 05/22/18 10/17/18 History Insulin Detemir (Levemir) [Levemir] 20 unit SQ HS 05/22/18 10/17/18 History Insulin Detemir (Levemir) [Levemir] 30 unit SQ DAILY 05/22/18 10/17/18 History Mylanta 20 ml PO Q4H PRN 05/22/18 10/17/18 History Naproxen Sodium [Aleve] 220 mg PO BID@0500,1800 05/22/18 10/17/18 History Omeprazole 20 mg PO DAILY 05/22/18 10/17/18 History Pravastatin Sodium [Pravachol] 40 mg PO HS 05/22/18 10/17/18 History Sennosides/Docusate Sodium 1 tab PO DAILY@0630 05/22/18 10/17/18 History [Senna-S Laxative Tablet] Tamsulosin HCl [Flomax] 0.4 mg PO BID 05/22/18 10/17/18 History Triamcinolone 0.5% Cream [Kenalog 1 applic TOPICAL BID 05/22/18 10/17/18 History 0.5% Cream] Acetaminophen [Tylenol 8 Hour] 650 mg PO BID 10/17/18 10/17/18 History Baclofen [Lioresal] 10 mg PO TID PRN 10/17/18 10/17/18 History HYDROcodone/APAP 5-325MG [[place] 1 tab PO Q6HR PRN 10/17/18 10/17/18 History 5-325] Allergies Allergy/AdvReac Type Severity Reaction Status Date / Time ibuprofen AdvReac Nausea Verified 10/17/18 08:03 Physical Exam Vitals: Vital Signs Temp Pulse Pulse Resp BP Pulse Ox 10/17/18 11:00 55 L 18 108/55 98 10/17/18 10:30 54 L 18 102/56 98 10/17/18 09:00 53 L 18 101/62 98 10/17/18 08:59 59 L 10/17/18 08:30 56 L 18 99/64 96 10/17/18 08:05 58 L 18 93/62 95 10/17/18 07:57 98.4 F 59 L 17 93/62 99 Intake and Output 10/16/18 10/17/18 10/17/18 22:59 06:59 14:59 Other: Weight 72.121 kg Head normocephalic Neck supple Lungs clear to auscultation bilaterally no wheezing or crackles Heart regular rate and rhythm S1-S2, no rub or gallop Abdomen is soft nontender nondistended positive bowel sounds no hepatosplenomegaly Extremities no edema Neuro alert and orientated to 3 [address] catheter is in place Results CBC & Chem 7: 10/17/18 08:36 10/17/18 09:35 Labs: Abnormal Lab Results - Last 24 Hours (Table) 10/17/18 10/17/18 10/17/18 Range/Units 08:36 08:36 08:36 Hgb 11.4 L (13.0-17.5) gm/dL Hct 35.8 L (39.0-53.0) % MCV 79.2 L (80.0-100.0) fL RDW 15.7 H (11.5-15.5) % Plt Count 481 H (150-450) k/uL Lymphocytes # 0.8 L (1.0-4.8) k/uL PT 12.6 H (9.0-12.0) sec INR 1.2 H (<1.2) Sodium (137-145) mmol/L Carbon Dioxide (22-30) mmol/L BUN (9-20) mg/dL Creatinine (0.66-1.25) mg/dL Glucose (74-99) mg/dL Creatine Kinase (55-170) U/L Total Protein (6.3-8.2) g/dL Albumin (3.5-5.0) g/dL Urine Protein 1+ H (Negative) Urine Ketones Trace H (Negative) Urine Blood Small H (Negative) Ur Leukocyte Esterase Large H (Negative) Urine RBC 8 H (0-5) /hpf Urine WBC >182 H (0-5) /hpf Urine WBC Clumps Many H (None) /hpf Urine Bacteria Moderate H (None) /hpf Urine Mucus Rare H (None) /hpf 10/17/18 Range/Units 09:35 Hgb (13.0-17.5) gm/dL Hct (39.0-53.0) % MCV (80.0-100.0) fL RDW (11.5-15.5) % Plt Count (150-450) k/uL Lymphocytes # (1.0-4.8) k/uL PT (9.0-12.0) sec INR (<1.2) Sodium 131 L (137-145) mmol/L Carbon Dioxide 20 L (22-30) mmol/L BUN 60 H (9-20) mg/dL Creatinine 1.36 H (0.66-1.25) mg/dL Glucose 137 H (74-99) mg/dL Creatine Kinase 22 L (55-170) U/L Total Protein 6.2 L (6.3-8.2) g/dL Albumin 3.0 L (3.5-5.0) g/dL Urine Protein (Negative) Urine Ketones (Negative) Urine Blood (Negative) Ur Leukocyte Esterase (Negative) Urine RBC (0-5) /hpf Urine WBC (0-5) /hpf Urine WBC Clumps (None) /hpf Urine Bacteria (None) /hpf Urine Mucus (None) /hpf Assessment and Plan Assessment: 1. General weakness with MS exacerbation. Patient started on solumedrol 250 every 6 hours. 2. Urinary tract infection. UA positive for leukocyte esterase. Urine culture ordered. Patient started on Rocephin. 3. Acute kidney injury. Creatinine 1.36 and bun 60. Previous creatinine was 1.72 and bun 60. Patient's baseline is within normal limits. Patient's metformin, hydrochlorothiazide and lisinopril have been recently discontinued to long term. 4. Bradycardia. We'll hold patient's beta andrews at this time. Patient's blood pressure also in the 90s. 5. Diabetes mellitus type 2. Home meds will be resumed + scale coverage due to high steroids. 6. Hyperlipidemia. 7. Essential hypertension 8. History of myocardial infarction with stents. Patient is maintained on Plavix 9. History of MRSA in his urine in May 2018 10. History of multiple sclerosis. Patient does follow with Dr. Leal. Patient was recently seen by Dr. Leal last week was an MRI of the patient refused 11. History of osteoarthritis 12. History of urinary retention and neurogenic bladder with chronic Payton. Urology services will be consulted 13. Stage I ulcer to right heel. Will order pressure reducing boot and zinc oxide DVT prophylaxis Lovenox. GI prophylaxis Protonix Continue with IV Solu-Medrol for 10 doses Urology service consulted Normal saline at 75 Repeat a.m. labs Time with Patient: Greater than 30 (Greater than 60% of the total time spent in counseling and coordination of care. I performed an examination of the patient and discussed their management with the Nurse Practitioner. I have reviewed the Nurse Practitioner's notes and agree with the documented findings and plan of care)
[2018-10-17] MEDS ORDERED: HYDROmorphone 0.5 MG/0.5 ML SYRINGE IVP PRN (13:41)
[2018-10-17] MEDS ORDERED: BISACODYL 10 MG SUPP RECTAL PRN (13:42)
[2018-10-17] MEDS ORDERED: MAG HYDROX/AL HYDROX/SIMETH 30 ML CUP PO PRN (13:42)
[2018-10-17 15:09] LABS: Appearance,Urine Turbid (Clear); Bilirubin,Urine Negative (Negative); Blood,Urine Moderate (Negative); Color,Urine Light Yellow; Glucose,Urine (UA) Negative (Negative); Ketones,Urine Negative (Negative); Leukocyte Esterase,Urine Large (Negative); Mucus,Urine Occasional /hpf; Nitrite,Urine Negative (Negative); PH, Urine 6.5 (5.0-8.0); Protein,Urine 1+ (Negative); RBC,Urine 39 /hpf (0-5); Specific Gravity,Urine 1.013 (1.001-1.035); Urobilinogen,Urine <2.0 mg/dL (<2.0); WBC,Urine >182 /hpf (0-5)
[2018-10-17] MEDS: methylPREDNISolone SOD SUCCI 250 MG in SODIUM CHLORIDE 0.9% 100 ML IVPB SCH ×2 (16:26→21:34)
[2018-10-17 17:03] LABS: Glucose,Whole Blood 183 mg/dL (75-99)
[2018-10-17] MEDS: NAPROXEN 250 MG TAB PO SCH (17:07)
[2018-10-17] MEDS: HYDROcodone/APAP 5-325MG 1 EACH TAB PO PRN ×2 (17:08→23:02)
[2018-10-17] MEDS: INSULIN ASPART (NovoLOG) 100 UNIT/ML VIAL SQ SCH ×2 (17:29→21:33)
[2018-10-17 20:14] LABS: Glucose,Whole Blood 165 mg/dL (75-99)
[2018-10-17] MEDS: ASPIRIN 81 MG PO SCH (21:33)
[2018-10-17] MEDS: CALCIUM CARB-VIT D 500MG-200UN 1 EACH TAB PO SCH (21:33)
[2018-10-17] MEDS: PRAVASTATIN SODIUM 40 MG TAB PO SCH (21:33)
[2018-10-17] MEDS: INSULIN DETEMIR (LEVEMIR) 100 UNIT/ML SYR SQ SCH (21:33)
[2018-10-17] MEDS: TAMSULOSIN 0.4 MG CAP.ER.24H PO SCH (21:33)
[2018-10-17] MEDS: BACLOFEN 10 MG TAB PO PRN (23:03)
[2018-10-17] MEDS: TRIAMCINOLONE ACET 0.5% CREAM 15 GM TUBE TOPICAL SCH (23:05)
[2018-10-18] MEDS: SODIUM CHLORIDE 0.9% 1,000 ML IV SCH ×2 (01:03→13:34)
[2018-10-18] MEDS: methylPREDNISolone SOD SUCCI 250 MG in SODIUM CHLORIDE 0.9% 100 ML IVPB SCH ×4 (03:06→20:45)
[2018-10-18] MEDS: FINASTERIDE 5 MG TAB PO SCH (05:02)
[2018-10-18] MEDS: ATENOLOL 25 MG TAB PO SCH (05:02)
[2018-10-18] MEDS: SENNOSIDES-DOCUSATE SODIUM 1 EACH TAB PO SCH (05:02)
[2018-10-18] MEDS: CLOPIDOGREL 75 MG TAB PO SCH (05:02)
[2018-10-18] MEDS: NAPROXEN 250 MG TAB PO SCH ×2 (05:03→17:49)
[2018-10-18] MEDS: CITALOPRAM HYDROBROMIDE 10 MG TAB PO SCH (05:03)
[2018-10-18] MEDS: HYDROcodone/APAP 5-325MG 1 EACH TAB PO PRN ×2 (05:04→11:35)
[2018-10-18 07:03] LABS: Glucose,Whole Blood 152 mg/dL (75-99)
[2018-10-18 08:02] LABS: Basophils % (A) 0 %; Eosinophils % (A) 0 %; HCT 36.3 % (39.0-53.0); HGB 11.3 gm/dL (13.0-17.5); Lymphocytes # (A) 0.6 k/uL (1.0-4.8); Lymphocytes % (A) 15 %; MCH 24.9 pg (25.0-35.0); MCHC 31.2 g/dL (31.0-37.0); MCV 79.8 fL (80.0-100.0); Mean Platelet Volume 6.6; Monocytes # (A) 0.2 k/uL (0-1.0); Monocytes % (A) 4 %; Neutrophils # (A) 3.1 k/uL (1.3-7.7); Neutrophils % (A) 78 %; Platelet Count 541 k/uL (150-450); RBC 4.55 m/uL (4.30-5.90); RDW 15.8 % (11.5-15.5); WBC 3.9 k/uL (3.8-10.6)
[2018-10-18] MEDS: INSULIN ASPART (NovoLOG) 100 UNIT/ML VIAL SQ SCH ×4 (08:02→21:02)
[2018-10-18] MEDS: PANTOPRAZOLE 40 MG TABLET PO SCH (08:02)
[2018-10-18] MEDS: ENOXAPARIN 40 MG/0.4 ML SYRINGE SQ SCH (08:03)
[2018-10-18] MEDS: TAMSULOSIN 0.4 MG CAP.ER.24H PO SCH ×2 (08:04→20:45)
[2018-10-18] MEDS: TRIAMCINOLONE ACET 0.5% CREAM 15 GM TUBE TOPICAL SCH ×2 (08:04→20:47)
[2018-10-18 08:14] LABS: ALT 29 U/L (21-72); AST 15 U/L (17-59); Albumin 3.4 g/dL (3.5-5.0); Alkaline Phosphatase 67 U/L (38-126); Anion Gap 10 mmol/L; Blood Urea Nitrogen 42 mg/dL (9-20); Calcium 9.4 mg/dL (8.4-10.2); Carbon Dioxide 22 mmol/L (22-30); Chloride 105 mmol/L (98-107); Glucose 146 mg/dL (74-99); Potassium 4.4 mmol/L (3.5-5.1); Sodium 137 mmol/L (137-145); Total Bilirubin 0.4 mg/dL (0.2-1.3); Total Protein 6.8 g/dL (6.3-8.2)
[2018-10-18] MEDS ORDERED: NON-FORMULARY DRUG (Omeprazole [Omeprazole] 20 MG) PO SCH (09:00)
--- NOTE | 2018-10-18 09:14 | P.GSCN ---
History of Present Illness Consult date: 10/18/18 History of present illness: This is a 63-year-old gentleman with advanced multiple sclerosis who was admitted to the hospital with an exacerbation. He has had increasing weakness. During the evaluation of the admission the urinalysis is abnormal and we are asked see the patient for "recurrent infections". The patient is not symptomatic urologic other than he has chronic bladder pain. The urinalysis shows nitrate positive and white blood cells. The white count is normal at 9400 on admission. It is repeated at 3700.. He has had no fever. He states that he has had recurring infections which he calls cloudy urine and bladder pain. There is been no fever associated with these. He had a computed tomography scan in May that was normal urologically. He has had the catheter in one year. The catheter change monthly at the longterm. Review of Systems - Constitutional Reports anorexia, Reports fatigue, Reports lethargy, Reports malaise - Genitourinary Reports as per HPI - Psychiatric Reports depression Past Medical History Past Medical History: COPD, Diabetes Mellitus, Hyperlipidemia, Hypertension, Myocardial Infarction (OK), Musculoskeletal Disorder, Neurologic Disorder, Osteoarthritis (OA), Renal Disease, Skin Disorder Additional Past Medical History / Comment(s): Multiple sclerosis diagnosed in 2004, bed bound, NIDDM type II, hx of prostate obstruction and has had surgery, hx of urinary retention with chronic payton, UTI's, nephrolithiasis, current sores on buttock/R great toe, chronic back pain, numbness and tingling bilateral feet and hands, leg spasms, psoriasis, 3.3 lower abdominal aortic aneurysm, ileus, incontinent of stool, tracheobronchitis, vitamin D deficiency, PVD, occasional difficulty swallowing, dermatitis. Last Myocardial Infarction Date:: 2004 History of Any Multi-Drug Resistant Organisms: MRSA Year Discovered:: 05/22/18 MDRO Source:: URINE MRSA Past Surgical History: Heart Catheterization With Stent, Prostate Surgery Additional Past Surgical History / Comment(s): 2004 PTCA with 3 stents, laser cystoscopy/lithotripsy with double J catheter insertion and eventual removal, cystoscopy/TURP, hemorhoids, L carpal tunnel release, colonoscopy, circumcism. Past Anesthesia/Blood Transfusion Reactions: No Reported Reaction Additional Past Anesthesia/Blood Transfusion Reaction / Comm: Pt states he has never received blood. Date of Last Stent Placement:: 2004 Smoking Status: Current some day smoker - Past Family History Father Family Medical History: Cancer Additional Family Medical History / Comment(s): Father of leukemia at the age of 40 yrs. Mother Family Medical History: Diabetes Mellitus Additional Family Medical History / Comment(s): Mother is 83 yrs old. Medications and Allergies Home Medications Medication Instructions Recorded Confirmed Type Atenolol [Tenormin] 25 mg PO DAILY@0600 08/10/14 10/17/18 History Clopidogrel [Plavix] 75 mg PO DAILY@0600 08/10/14 10/17/18 History Glatiramer Acetate [Copaxone] 40 mg SQ MOWEFR@1700 08/10/14 10/17/18 History Finasteride [Proscar] 5 mg PO DAILY@0600 09/27/14 10/17/18 History Acetaminophen Tab [Tylenol] 500 mg PO Q6H PRN 05/22/18 10/17/18 History Aspirin 81 mg PO HS 05/22/18 10/17/18 History Bisacodyl [Dulcolax] 10 mg RECTAL Q72H PRN 05/22/18 10/17/18 History Calcium Carbonate/Vitamin D3 1 tab PO HS 05/22/18 10/17/18 History [Calcium 600-Vit D3 200 Tablet] Cholecalciferol (Vitamin D3) 2,000 unit PO DAILY 05/22/18 10/17/18 History [Vitamin D3] Citalopram Hydrobromide [CeleXA] 10 mg PO DAILY@0600 05/22/18 10/17/18 History Insulin Detemir (Levemir) [Levemir] 20 unit SQ HS 05/22/18 10/17/18 History Insulin Detemir (Levemir) [Levemir] 30 unit SQ DAILY 05/22/18 10/17/18 History Mylanta 20 ml PO Q4H PRN 05/22/18 10/17/18 History Naproxen Sodium [Aleve] 220 mg PO BID@0500,1800 05/22/18 10/17/18 History Omeprazole 20 mg PO DAILY 05/22/18 10/17/18 History Pravastatin Sodium [Pravachol] 40 mg PO HS 05/22/18 10/17/18 History Sennosides/Docusate Sodium 1 tab PO DAILY@0630 05/22/18 10/17/18 History [Senna-S Laxative Tablet] Tamsulosin HCl [Flomax] 0.4 mg PO BID 05/22/18 10/17/18 History Triamcinolone 0.5% Cream [Kenalog 1 applic TOPICAL BID 05/22/18 10/17/18 History 0.5% Cream] Acetaminophen [Tylenol 8 Hour] 650 mg PO BID 10/17/18 10/17/18 History Baclofen [Lioresal] 10 mg PO TID PRN 10/17/18 10/17/18 History HYDROcodone/APAP 5-325MG [[place] 1 tab PO Q6HR PRN 10/17/18 10/17/18 History 5-325] Allergies Allergy/AdvReac Type Severity Reaction Status Date / Time ibuprofen AdvReac Nausea Verified 10/17/18 08:03 Surgical - Exam Vital Signs Temp Pulse Resp BP Pulse Ox 98.4 F 59 L 17 93/62 99 10/17/18 07:57 10/17/18 07:57 10/17/18 07:57 10/17/18 07:57 10/17/18 07:57 - General well developed, well nourished, no distress - Eyes PERRL - ENT no hearing loss - Neck no masses - Respiratory normal expansion, normal respiratory effort - Abdomen Abdomen: non tender - Genitourinary Indwelling catheter. Normal penis testes. Rectal deferred - Neurologic normal sensation - Musculoskeletal normal posture - Psychiatric oriented to time, oriented to person, oriented to place, speech is normal, memory intact Results - Labs 10/18/18 07:28 10/18/18 07:28 Abnormal Lab Results - Last 24 Hours (Table) 10/17/18 10/17/18 10/17/18 Range/Units 08:36 09:35 14:50 Hgb (13.0-17.5) gm/dL Hct (39.0-53.0) % MCV (80.0-100.0) fL MCH (25.0-35.0) pg RDW (11.5-15.5) % Plt Count (150-450) k/uL Lymphocytes # (1.0-4.8) k/uL PT 12.6 H (9.0-12.0) sec INR 1.2 H (<1.2) Sodium 131 L (137-145) mmol/L Carbon Dioxide 20 L (22-30) mmol/L BUN 60 H (9-20) mg/dL Creatinine 1.36 H (0.66-1.25) mg/dL Glucose 137 H (74-99) mg/dL POC Glucose (mg/dL) (75-99) mg/dL AST (17-59) U/L Creatine Kinase 22 L (55-170) U/L Total Protein 6.2 L (6.3-8.2) g/dL Albumin 3.0 L (3.5-5.0) g/dL Urine Protein 1+ H (Negative) Urine Blood Moderate H (Negative) Ur Leukocyte Esterase Large H (Negative) Urine RBC 39 H (0-5) /hpf Urine WBC >182 H (0-5) /hpf Urine WBC Clumps Many H (None) /hpf Urine Mucus Occasional H (None) /hpf 10/17/18 10/17/18 10/18/18 Range/Units 17:01 20:13 07:00 Hgb (13.0-17.5) gm/dL Hct (39.0-53.0) % MCV (80.0-100.0) fL MCH (25.0-35.0) pg RDW (11.5-15.5) % Plt Count (150-450) k/uL Lymphocytes # (1.0-4.8) k/uL PT (9.0-12.0) sec INR (<1.2) Sodium (137-145) mmol/L Carbon Dioxide (22-30) mmol/L BUN (9-20) mg/dL Creatinine (0.66-1.25) mg/dL Glucose (74-99) mg/dL POC Glucose (mg/dL) 183 H 165 H 152 H (75-99) mg/dL AST (17-59) U/L Creatine Kinase (55-170) U/L Total Protein (6.3-8.2) g/dL Albumin (3.5-5.0) g/dL Urine Protein (Negative) Urine Blood (Negative) Ur Leukocyte Esterase (Negative) Urine RBC (0-5) /hpf Urine WBC (0-5) /hpf Urine WBC Clumps (None) /hpf Urine Mucus (None) /hpf 10/18/18 10/18/18 Range/Units 07:28 07:28 Hgb 11.3 L (13.0-17.5) gm/dL Hct 36.3 L (39.0-53.0) % MCV 79.8 L (80.0-100.0) fL MCH 24.9 L (25.0-35.0) pg RDW 15.8 H (11.5-15.5) % Plt Count 541 H (150-450) k/uL Lymphocytes # 0.6 L (1.0-4.8) k/uL PT (9.0-12.0) sec INR (<1.2) Sodium (137-145) mmol/L Carbon Dioxide (22-30) mmol/L BUN 42 H (9-20) mg/dL Creatinine (0.66-1.25) mg/dL Glucose 146 H (74-99) mg/dL POC Glucose (mg/dL) (75-99) mg/dL AST 15 L (17-59) U/L Creatine Kinase (55-170) U/L Total Protein (6.3-8.2) g/dL Albumin 3.4 L (3.5-5.0) g/dL Urine Protein (Negative) Urine Blood (Negative) Ur Leukocyte Esterase (Negative) Urine RBC (0-5) /hpf Urine WBC (0-5) /hpf Urine WBC Clumps (None) /hpf Urine Mucus (None) /hpf Microbiology - Last 24 Hours (Table) 10/17/18 14:55 Gram Stain - Preliminary Buttock Wound Culture - Preliminary 10/17/18 14:50 Urine Culture - Preliminary Urine,Catheterized 10/17/18 14:45 Anaerobic Culture - Preliminary Coccyx 10/17/18 08:36 Urine Culture - Preliminary Urine,Catheterized Diabetes panel 10/17/18 10/18/18 Range/Units 09:35 07:28 Sodium 131 L 137 (137-145) mmol/L Potassium 4.1 4.4 (3.5-5.1) mmol/L Chloride 101 105 (98-107) mmol/L Carbon Dioxide 20 L 22 (22-30) mmol/L BUN 60 H 42 H (9-20) mg/dL Creatinine 1.36 H 0.81 (0.66-1.25) mg/dL Glucose 137 H 146 H (74-99) mg/dL Calcium 8.4 9.4 (8.4-10.2) mg/dL AST 17 15 L (17-59) U/L ALT 32 29 (21-72) U/L Alkaline Phosphatase 70 67 (38-126) U/L Total Protein 6.2 L 6.8 (6.3-8.2) g/dL Albumin 3.0 L 3.4 L (3.5-5.0) g/dL Calcium panel 10/17/18 10/18/18 Range/Units 09:35 07:28 Calcium 8.4 9.4 (8.4-10.2) mg/dL Albumin 3.0 L 3.4 L (3.5-5.0) g/dL Pituitary panel 10/17/18 10/18/18 Range/Units 09:35 07:28 Sodium 131 L 137 (137-145) mmol/L Potassium 4.1 4.4 (3.5-5.1) mmol/L Chloride 101 105 (98-107) mmol/L Carbon Dioxide 20 L 22 (22-30) mmol/L BUN 60 H 42 H (9-20) mg/dL Creatinine 1.36 H 0.81 (0.66-1.25) mg/dL Glucose 137 H 146 H (74-99) mg/dL Calcium 8.4 9.4 (8.4-10.2) mg/dL Adrenal panel 10/17/18 10/18/18 Range/Units 09:35 07:28 Sodium 131 L 137 (137-145) mmol/L Potassium 4.1 4.4 (3.5-5.1) mmol/L Chloride 101 105 (98-107) mmol/L Carbon Dioxide 20 L 22 (22-30) mmol/L BUN 60 H 42 H (9-20) mg/dL Creatinine 1.36 H 0.81 (0.66-1.25) mg/dL Glucose 137 H 146 H (74-99) mg/dL Calcium 8.4 9.4 (8.4-10.2) mg/dL Total Bilirubin 0.5 0.4 (0.2-1.3) mg/dL AST 17 15 L (17-59) U/L ALT 32 29 (21-72) U/L Alkaline Phosphatase 70 67 (38-126) U/L Total Protein 6.2 L 6.8 (6.3-8.2) g/dL Albumin 3.0 L 3.4 L (3.5-5.0) g/dL - Imaging CT scan - abdomen: report reviewed, image reviewed CT scan - pelvis: report reviewed, image reviewed Assessment and Plan Assessment: Impression: multiple sclerosis with exacerbation. Her genital bladder with chronic indwelling catheter secondary to retention for multiple sclerosis. Multiple medical illnesses. Recommendation: Patient is obviously depressed based on his disease. He is not having recurrent infections but has positive bacteria and white blood cells in the urine which is normal for chronic indwelling catheters. Do not recommend treating these "infections" is based on urinalysis and culture alone. Unless the patient is septic with a markedly elevated white count high fever or chills or signs of sepsis all that is being treated bacteria and pyuria with the creation of resistant bacteria. As far as dealing with bladder discomfort his options would be intermittent catheterization which he declines, or a suprapubic tube. The patient is depressed with his whole situation. He really was not interested in anything I had to say. He is convinced that he is have infection based on the color and appearance of the urine in the tubing. I tried to explain to him that this is normal and not infected. I will notify of this patient's admission.
[2018-10-18] MEDS: INSULIN DETEMIR (LEVEMIR) 100 UNIT/ML SYR SQ SCH ×2 (09:22→21:05)
[2018-10-18 11:00] VITALS: BMI 23.4
[2018-10-18 11:48] LABS: Glucose,Whole Blood 137 mg/dL (75-99)
[2018-10-18] MEDS ORDERED: CHOLECALCIFEROL 1,000 UNIT TAB PO SCH (12:00)
--- NOTE | 2018-10-18 15:00 | P.PN ---
Subjective Progress Note Date: 10/18/18 This is a 63-year-old male sent to the ER with complaints of increased weakness. Patient currently resides at [facility]. Patient has a known past medical history of multiple sclerosis. Patient reports that he has become increasingly weak over the past 2 months. Patient was seen by his neurologist last week in which he had ordered an MRI of the patient had refused. Patient also has refused urology and infectious disease consults due to patient's recurring urinary tract infections. Patient does have an additional medical history of diabetes mellitus, hyperlipidemia, hypertension, myocardial infarction, musculoskeletal disorder, neurological disorder, gastritis, renal disease, skin disorder, heart cath with stents in 2004, urinary retention with chronic Espinosa and MRSA in his urine in May 2018. Patient also stated that he wanted a [facility] hospice consult placed at [facility]. Chest x-ray showing no acute cardiopulmonary process. EKG completed showing sinus bradycardia. Patient's bu n 16, creatinine 1.36. UA positive for leukocyte esterase. Patient started on Rocephin urine culture ordered. Patient also started on high-dose IV Medrol for MS exacerbation. At this time patient is resting in bed. Patient is adamant that he does not want to stay in the hospital and like to return to [facility]. Patient's brother is at bedside. At this time patient denies chest pain or shortness of breath. Patient denies nausea vomiting or diarrhea. On 10/18/2018 patient is alert and oriented 3. Patient expresses he is very eager to go back jail. She remains on IV Solu-Medrol for MS flareup. At this time patient denies chest pain or shortness breath. Patient denies vom iting or diarrhea. Patient denies any urinary burning or frequency. Espinosa catheter has been changed. Patient remains on Rocephin for UTI. Urology services consulted Objective - Vital Signs Vital signs: Vital Signs Temp 97.4 F L 10/18/18 07:00 Pulse 60 10/18/18 07:00 Resp 12 10/18/18 07:00 BP 118/61 10/18/18 07:00 Pulse Ox 97 10/18/18 07:00 Intake & Output 10/17/18 10/18/18 10/18/18 18:59 06:59 18:59 Output Total 1200 Balance -1200 Weight 72.121 kg 72.121 kg Output: Urine 1200 Other: Voiding Method Indwelling Catheter Indwelling Catheter Indwelling Catheter # Voids 0 - Exam Head normocephalic Neck supple Lungs clear to auscultation bilaterally no wheezing or crackles Heart regular rate and rhythm S1-S2, no rub or gallop Abdomen is soft nontender nondistended positive bowel sounds no hepatosplenomegaly Extremities no edema Neuro alert and orientated to 3 Espinosa catheter is in place - Labs CBC & Chem 7: 10/18/18 07:28 10/18/18 07:28 Labs: Abnormal Lab Results - Last 24 Hours (Table) 10/17/18 10/17/18 10/17/18 Range/Units 14:50 17:01 20:13 Hgb (13.0-17.5) gm/dL Hct (39.0-53.0) % MCV (80.0-100.0) fL MCH (25.0-35.0) pg RDW (11.5-15.5) % Plt Count (150-450) k/uL Lymphocytes # (1.0-4.8) k/uL BUN (9-20) mg/dL Glucose (74-99) mg/dL POC Glucose (mg/dL) 183 H 165 H (75-99) mg/dL AST (17-59) U/L Albumin (3.5-5.0) g/dL Urine Protein 1+ H (Negative) Urine Blood Moderate H (Negative) Ur Leukocyte Esterase Large H (Negative) Urine RBC 39 H (0-5) /hpf Urine WBC >182 H (0-5) /hpf Urine WBC Clumps Many H (None) /hpf Urine Mucus Occasional H (None) /hpf 10/18/18 10/18/18 10/18/18 Range/Units 07:00 07:28 07:28 Hgb 11.3 L (13.0-17.5) gm/dL Hct 36.3 L (39.0-53.0) % MCV 79.8 L (80.0-100.0) fL MCH 24.9 L (25.0-35.0) pg RDW 15.8 H (11.5-15.5) % Plt Count 541 H (150-450) k/uL Lymphocytes # 0.6 L (1.0-4.8) k/uL BUN 42 H (9-20) mg/dL Glucose 146 H (74-99) mg/dL POC Glucose (mg/dL) 152 H (75-99) mg/dL AST 15 L (17-59) U/L Albumin 3.4 L (3.5-5.0) g/dL Urine Protein (Negative) Urine Blood (Negative) Ur Leukocyte Esterase (Negative) Urine RBC (0-5) /hpf Urine WBC (0-5) /hpf Urine WBC Clumps (None) /hpf Urine Mucus (None) /hpf 10/18/18 Range/Units 11:44 Hgb (13.0-17.5) gm/dL Hct (39.0-53.0) % MCV (80.0-100.0) fL MCH (25.0-35.0) pg RDW (11.5-15.5) % Plt Count (150-450) k/uL Lymphocytes # (1.0-4.8) k/uL BUN (9-20) mg/dL Glucose (74-99) mg/dL POC Glucose (mg/dL) 137 H (75-99) mg/dL AST (17-59) U/L Albumin (3.5-5.0) g/dL Urine Protein (Negative) Urine Blood (Negative) Ur Leukocyte Esterase (Negative) Urine RBC (0-5) /hpf Urine WBC (0-5) /hpf Urine WBC Clumps (None) /hpf Urine Mucus (None) /hpf Microbiology - Last 24 Hours (Table) 10/17/18 08:36 Urine Culture - Preliminary Urine,Catheterized Gram Neg Bacilli 10/17/18 08:36 Blood Culture - Preliminary Blood No Growth after 24 hours 10/17/18 14:55 Gram Stain - Preliminary Buttock Wound Culture - Preliminary 10/17/18 14:50 Urine Culture - Preliminary Urine,Catheterized 10/17/18 14:45 Anaerobic Culture - Preliminary Coccyx Assessment and Plan Assessment: 1. General weakness with MS exacerbation. Patient started on solumedrol 250 every 6 hours. 2. Urinary tract infection. UA positive for leukocyte esterase. Urine culture ordered. Patient started on Rocephin. 3. Acute kidney injury. Creatinine 1.36 and bun 60. Previous creatinine was 1.72 and bun 60. Patient's baseline is within normal limits. Patient's metformin, hydrochlorothiazide and lisinopril have been recently discontinued to jail. Creatinine improving to 0.81 and bun 42 4. Bradycardia. We'll hold patient's beta andrews at this time. Patient's blood pressure also in the 90s. Heart rate has improved 5. Diabetes mellitus type 2. Home meds will be resumed + scale coverage due to high steroids. 6. Hyperlipidemia. 7. Essential hypertension 8. History of myocardial infarction with stents. Patient is maintained on Plavix 9. History of MRSA in his urine in May 2018 10. History of multiple sclerosis. Patient does follow with Dr. Leal. Patient was recently seen by Dr. Leal last week was an MRI of the patient refused 11. History of osteoarthritis 12. History of urinary retention and neurogenic bladder with chronic Espinosa. Urology services will be consulted 13. Stage I ulcer to right heel. Will order pressure reducing boot and zinc oxide 14. 2 stage II pressure ulcers to backside. Cultures obtained. Continue wound care DVT prophylaxis Lovenox. GI prophylaxis Protonix I performed an examination of the patient and discussed their management with the Nurse Practitioner. I have reviewed the Nurse Practitioner's notes and agree with the documented findings and plan of care
[2018-10-18] MEDS: BACLOFEN 10 MG TAB PO PRN (15:18)
[2018-10-18] MEDS ORDERED: GLATIRAMER ACETATE 40 MG SQ SCH (17:00)
[2018-10-18 17:30] LABS: Glucose,Whole Blood 200 mg/dL (75-99)
[2018-10-18] MEDS: PRAVASTATIN SODIUM 40 MG TAB PO SCH (20:45)
[2018-10-18] MEDS: CALCIUM CARB-VIT D 500MG-200UN 1 EACH TAB PO SCH (20:45)
[2018-10-18] MEDS: ASPIRIN 81 MG PO SCH (20:45)
[2018-10-18 20:58] LABS: Glucose,Whole Blood 141 mg/dL (75-99)
[2018-10-18] MEDS ORDERED: VANCOMYCIN IV PER PHARMACY 1 EACH MISC MISCELLANE PRN (23:25)
--- NOTE | 2018-10-19 00:04 | CONS ---
CONSULTATION DATE OF SERVICE: 10/18/2018. REASON FOR CONSULTATION: Multiple/sacral pressure ulcer. HISTORY OF PRESENT ILLNESS: The patient is a 63-year-old male with a past medical history significant for MS. This patient is bed bound and prison resident. He did have urinary retention requiring chronic indwelling Espinosa catheter that is changed on a monthly basis. The patient has been sent to the ER at [facility] yesterday morning with chief complaints of progressive weakness and numbness and pain. The patient was very irritable by the nursing having him to turn around and did not provide any reliable history. There is no clear history of any nausea, no vomiting or any diarrhea. The patient's Espinosa catheter has been changed on this admission. No fever or elevated white count. The patient did have excoriation on his right gluteal and a stage II pressure ulcer on his left gluteal area. However, the patient unable to determine exactly when or for how long he has these wounds. He did have some dull aching pain to that area, but unable to quantify any further. REVIEW OF SYSTEMS: Positive points have been mentioned in HPI. Other systems negative. PAST MEDICAL HISTORY: Diabetes mellitus, hypertension, hyperlipidemia, [place] neurogenic bladder, multiple sclerosis, history of cough, recurrent UTIs and psoriasis. PAST SURGICAL HISTORY: PTCA with stent, prostate surgery, cystoscopy with lithotripsy and double-J catheter insertion. SOCIAL HISTORY: Current everyday smoker. No drinking or drug use. FAMILY HISTORY: Father of leukemia at age of 40 years. Mother history of diabetes. ALLERGIES: TO IBUPROFEN. MEDICATIONS: Medications include the patient is currently on Flomax, Senokot, Pravachol, Protonix, naproxen, Narcan, Solu-Medrol, Levemir, NovoLog, Dilaudid, Proscar, Lovenox, Plavix, Celexa, Rocephin, Dulcolax, baclofen, aspirin, Maalox, and Tylenol. PHYSICAL EXAMINATION: Blood pressure 122/57 with a pulse of 57. Temperature 97.8. He is 98% on room air. General description is a middle-aged male lying in bed in no distress. No tachypnea or accessory muscle of respiration use. HEENT: Shows pallor. No scleral icterus. Oral mucosa membranes are dry. No pharyngeal erythema or thrush. NECK: Trachea central. No thyromegaly. Lungs unlabored breathing. Clear to auscultation anteriorly. Heart: S1, S2. Regular rate and rhythm. Abdomen soft. No tenderness. Extremities: No edema of the feet. Examination of the sacral/gluteal area: The patient did have a stage II on his left gluteal area with no evidence of any slough tissue or surrounding erythema or excoriation on the right gluteal area. No cellulitis. Neurological: Awake, alert, oriented times three. Mood and affect normal. LABS: Hemoglobin is 11.8, white count 3.9, BUN of 42, creatinine 0.81, electrolytes have been normal. Liver enzymes are normal. Urinalysis has been positive. has been obtained from his Espinosa catheter. DIAGNOSTIC IMPRESSION AND PLAN: Patient with a stage II left gluteal pressure ulcer and stage II ulcer on the right gluteal area, currently with no evidence of any active cellulitis. We will recommend continue local wound care. PLAN: 1. Aquacel silver dressing to the left gluteal area and Calmoseptine lotion to the right gluteal area to keep the area dry and off the pressure. 2. We will follow up on his clinical condition and adjust medication further if needed. Thank you for the for this consultation. We will follow this patient along with you. MMODL / IJN: [id number] /
[2018-10-19] MEDS ORDERED: VANCOMYCIN 1,250 MG in SODIUM CHLORIDE 0.9% 250 ML IVPB SCH (01:00)
[2018-10-19] MEDS: methylPREDNISolone SOD SUCCI 250 MG in SODIUM CHLORIDE 0.9% 100 ML IVPB SCH ×2 (02:53→09:44)
[2018-10-19] MEDS: SODIUM CHLORIDE 0.9% 1,000 ML IV SCH (02:53)
[2018-10-19] MEDS: NAPROXEN 250 MG TAB PO SCH (05:04)
[2018-10-19] MEDS: CITALOPRAM HYDROBROMIDE 10 MG TAB PO SCH (05:04)
[2018-10-19] MEDS: ATENOLOL 25 MG TAB PO SCH (05:04)
[2018-10-19] MEDS: CLOPIDOGREL 75 MG TAB PO SCH (05:04)
[2018-10-19] MEDS: FINASTERIDE 5 MG TAB PO SCH (05:04)
[2018-10-19] MEDS: SENNOSIDES-DOCUSATE SODIUM 1 EACH TAB PO SCH (05:04)
[2018-10-19] MEDS: HYDROcodone/APAP 5-325MG 1 EACH TAB PO PRN (06:55)
[2018-10-19] MEDS: BACLOFEN 10 MG TAB PO PRN (06:55)
[2018-10-19 07:44] LABS: Glucose,Whole Blood 183 mg/dL (75-99)
[2018-10-19] MEDS: INSULIN ASPART (NovoLOG) 100 UNIT/ML VIAL SQ SCH (08:02)
[2018-10-19] MEDS: PANTOPRAZOLE 40 MG TABLET PO SCH (08:02)
[2018-10-19] MEDS: TRIAMCINOLONE ACET 0.5% CREAM 15 GM TUBE TOPICAL SCH (08:43)
[2018-10-19] MEDS: ENOXAPARIN 40 MG/0.4 ML SYRINGE SQ SCH (08:43)
[2018-10-19] MEDS: TAMSULOSIN 0.4 MG CAP.ER.24H PO SCH (08:43)
[2018-10-19] MEDS: INSULIN DETEMIR (LEVEMIR) 100 UNIT/ML SYR SQ SCH (08:44)
[2018-10-19 09:22] VITALS: BP 163/74; PULSE 74; RESP 16; TEMP 98
[2018-10-19 09:30] LABS: Basophils % (A) 0 %; Eosinophils % (A) 0 %; HCT 34.6 % (39.0-53.0); HGB 11.1 gm/dL (13.0-17.5); Hypochromasia Slight; Lymphocytes # (A) 0.5 k/uL (1.0-4.8); Lymphocytes % (A) 14 %; MCH 25.9 pg (25.0-35.0); MCHC 32.1 g/dL (31.0-37.0); MCV 80.8 fL (80.0-100.0); Mean Platelet Volume 7.2; Monocytes # (A) 0.2 k/uL (0-1.0); Monocytes % (A) 5 %; Neutrophils # (A) 2.9 k/uL (1.3-7.7); Neutrophils % (A) 79 %; Platelet Count 528 k/uL (150-450); RBC 4.28 m/uL (4.30-5.90); RDW 15.7 % (11.5-15.5); WBC 3.7 k/uL (3.8-10.6)
[2018-10-19 09:36] LABS: ALT 28 U/L (21-72); AST 15 U/L (17-59); Albumin 3.1 g/dL (3.5-5.0); Alkaline Phosphatase 59 U/L (38-126); Anion Gap 7 mmol/L; Blood Urea Nitrogen 41 mg/dL (9-20); Calcium 9.4 mg/dL (8.4-10.2); Carbon Dioxide 22 mmol/L (22-30); Chloride 109 mmol/L (98-107); Glucose 160 mg/dL (74-99); Sodium 138 mmol/L (137-145); Total Bilirubin 0.5 mg/dL (0.2-1.3); Total Protein 6.1 g/dL (6.3-8.2)
--- NOTE | 2018-10-19 09:39 | P.DS ---
Providers Date of admission: 10/17/18 10:49 Expected date of discharge: 10/19/18 Attending physician: Logan Brumfield Consults: 10/17/18 12:50 Consult Physician Routine Consulting Provider: Hermes Bedoya Consult Reason/Comments: Chronic Espinosa, recurring UTIs, neurogenic bladder Do you want consulting provider notified?: Yes 10/18/18 15:25 Consult Physician Routine Consulting Provider: Shira Leonard Consult Reason/Comments: ulcer to coccyx Do you want consulting provider notified?: Yes Primary care physician: Logan [facility] Course: discharge diagnosis 1. General weakness with MS exacerbation. Patient started on solumedrol 250 every 6 hours.patient has completed 7 doses of IV Solu-Medrol 2. Urinary tract infection. UA positive for leukocyte esterase. Urine culture ordered. Patient started on Rocephin.patient was evaluated by urology services. per urology positive bacteria and white blood cells in the urine which is normal for chronic indwelling catheters. Urology did not recommend treating these "infections" based on urinary analysis and culture along. Unless the patient is septic with a marked elevated white count high fever or chills. per urology patient declined intermittent catheterization or suprapubic catheter. 3. Acute kidney injury. Creatinine 1.36 and bun 60. Previous creatinine was 1.72 and bun 60. Patient's baseline is within normal limits. Patient's metformin, hydrochlorothiazide and lisinopril have been recently discontinued to senior living. Creatinine improving to 0.81 and bun 42 4. Bradycardia. We'll hold patient's beta andrews at this time. Patient's blood pressure also in the 90s. Heart rate has improved 5. Diabetes mellitus type 2. Home meds will be resumed + scale coverage due to high steroids. 6. Hyperlipidemia. 7. Essential hypertension 8. History of myocardial infarction with stents. Patient is maintained on Plavix 9. History of MRSA in his urine in May 2018 10. History of multiple sclerosis. Patient does follow with Dr. Leal. Patient was recently seen by Dr. Leal last week was an MRI of the patient refused 11. History of osteoarthritis 12. History of urinary retention and neurogenic bladder with chronic Espinosa. Urology services will be consulted 13. Stage I ulcer to right heel. Will order pressure reducing boot and zinc oxide 14. 2 stage II pressure ulcers to backside. Cultures obtained. Continue wound care. per infectious diseaseepisodes of her dressing to the left gluteal area and Calmospetine lotoion the right gluteal area to keep the area dry and off pressure Hospital course This is a 63-year-old male sent to the ER with complaints of increased weakness. Patient currently resides at [facility]. Patient has a known past medical history of multiple sclerosis. Patient reports that he has become increasingly weak over the past 2 months. Patient was seen by his neurologist last week in which he had ordered an MRI of the patient had refused. Patient also has refused urology and infectious disease consults due to patient's recurring urinary tract infections. Patient does have an additional medical history of diabetes mellitus, hyperlipidemia, hypertension, myocardial infarction, musculoskeletal disorder, neurological disorder, gastritis, renal disease, skin disorder, heart cath with stents in 2004, urinary retention with chronic Espinosa and MRSA in his urine in May 2018. Patient also stated that he wanted a [facility] hospice consult placed at [facility]. Chest x-ray showing no acute cardiopulmonary process. EKG completed showing sinus bradycardia. Patient's bun 16, creatinine 1.36. UA positive for leukocyte esterase. Patient started on Rocephin urine culture ordered. Patient also started on high-dose IV Medrol for MS exacerbation. At this time patient is resting in bed. Patient is adamant that he does not want to stay in the hospital and like to return [facility]. Patient's brother is at bedside. At this time patient denies chest pain or shortness of breath. Patient denies nausea vomiting or diarrhea. On 10/18/2018 patient is alert and oriented 3. Patient expresses he is very eager to go back senior living. She remains on IV Solu-Medrol for MS flareup. At this time patient denies chest pain or shortness breath. Patient denies vomiting or diarrhea. Patient denies any urinary burning or frequency. Espinosa catheter has been changed. Patient remains on Rocephin for UTI. Urology services consulted On 10/19/2018 patient is alert and oriented 3. Patient expresses that he wants to go home right now. Patient was explained that he has not finished complete course of Solu-Medrol. Patient does not care. Patient wants to be discharged back to [facility]. Patient was evaluated by urology services. Not recommending treating urinary tract infection at this time due to chronic leukocytosis and WBC in the urinary analysis plus positive blood culture. Recommending not treating for urinary tract infection with patient symptomatic with fever elevated white count or sepsis. Patient does report he has improvement with his weakness. Denies chest pain or shortness breath. Patient denies nausea vomiting or diarrhea. The catheter was changed during this hospitalization. I performed an examination of the patient and discussed their management with the Nurse Practitioner. I have reviewed the Nurse Practitioner's notes and agree with the documented findings and plan of care Patient Condition at Discharge: Stable Plan - Discharge Summary Discharge Rx Participant: No New Discharge Prescriptions: New Zinc Oxide 20% Oint 1 applic TOPICAL BID PRN applic PRN Reason: Wound Healing Continue Clopidogrel [Plavix] 75 mg PO DAILY@0600 Atenolol [Tenormin] 25 mg PO DAILY@0600 Glatiramer Acetate [Copaxone] 40 mg SQ MOWEFR@1700 Finasteride [Proscar] 5 mg PO DAILY@0600 Acetaminophen Tab [Tylenol] 500 mg PO Q6H PRN PRN Reason: Pain Bisacodyl [Dulcolax] 10 mg RECTAL Q72H PRN PRN Reason: Constipation Triamcinolone 0.5% Cream [Kenalog 0.5% Cream] 1 applic TOPICAL BID Naproxen Sodium [Aleve] 220 mg PO BID@0500,1800 Cholecalciferol (Vitamin D3) [Vitamin D3] 2,000 unit PO DAILY Citalopram Hydrobromide [CeleXA] 10 mg PO DAILY@0600 Sennosides/Docusate Sodium [Senna-S Laxative Tablet] 1 tab PO DAILY@0630 Pravastatin Sodium [Pravachol] 40 mg PO HS Omeprazole 20 mg PO DAILY Insulin Detemir (Levemir) [Levemir] 30 unit SQ DAILY Insulin Detemir (Levemir) [Levemir] 20 unit SQ HS Calcium Carbonate/Vitamin D3 [Calcium 600-Vit D3 200 Tablet] 1 tab PO HS Aspirin 81 mg PO HS Mylanta 20 ml PO Q4H PRN PRN Reason: HEARTBURN/INDIGESTION Tamsulosin HCl [Flomax] 0.4 mg PO BID Acetaminophen [Tylenol 8 Hour] 650 mg PO BID Baclofen [Lioresal] 10 mg PO TID PRN PRN Reason: Muscle Spasm HYDROcodone/APAP 5-325MG [[place] 5-325] 1 tab PO Q6HR PRN 30 Days #120 tab PRN Reason: Pain Discharge Medication List Atenolol [Tenormin] 25 mg PO DAILY@0600 08/10/14 [History] Clopidogrel [Plavix] 75 mg PO DAILY@0600 08/10/14 [History] Glatiramer Acetate [Copaxone] 40 mg SQ MOWEFR@1700 08/10/14 [History] Finasteride [Proscar] 5 mg PO DAILY@0600 09/27/14 [History] Acetaminophen Tab [Tylenol] 500 mg PO Q6H PRN 05/22/18 [History] Aspirin 81 mg PO HS 05/22/18 [History] Bisacodyl [Dulcolax] 10 mg RECTAL Q72H PRN 05/22/18 [History] Calcium Carbonate/Vitamin D3 [Calcium 600-Vit D3 200 Tablet] 1 tab PO HS 05/22/18 [History] Cholecalciferol (Vitamin D3) [Vitamin D3] 2,000 unit PO DAILY 05/22/18 [History] Citalopram Hydrobromide [CeleXA] 10 mg PO DAILY@0600 05/22/18 [History] Insulin Detemir (Levemir) [Levemir] 20 unit SQ HS 05/22/18 [History] Insulin Detemir (Levemir) [Levemir] 30 unit SQ DAILY 05/22/18 [History] Mylanta 20 ml PO Q4H PRN 05/22/18 [History] Naproxen Sodium [Aleve] 220 mg PO BID@0500,1800 05/22/18 [History] Omeprazole 20 mg PO DAILY 05/22/18 [History] Pravastatin Sodium [Pravachol] 40 mg PO HS 05/22/18 [History] Sennosides/Docusate Sodium [Senna-S Laxative Tablet] 1 tab PO DAILY@0630 05/22/18 [History] Tamsulosin HCl [Flomax] 0.4 mg PO BID 05/22/18 [History] Triamcinolone 0.5% Cream [Kenalog 0.5% Cream] 1 applic TOPICAL BID 05/22/18 [History] Acetaminophen [Tylenol 8 Hour] 650 mg PO BID 10/17/18 [History] Baclofen [Lioresal] 10 mg PO TID PRN 10/17/18 [History] HYDROcodone/APAP 5-325MG [[place] 5-325] 1 tab PO Q6HR PRN 30 Days #120 tab 10/19/18 [Rx] Zinc Oxide 20% Oint 1 applic TOPICAL BID PRN applic 10/19/18 [Rx] Follow up Appointment(s)/Referral(s): Logan Brumfield MD [Primary Care Provider] - 1-2 days Maximino Leal MD [STAFF PHYSICIAN] - 1 Week Activity/Diet/Wound Care/Special Instructions: activity as tolerated diet heart healthy Episodes over dressing to left gluteal area and calmospetine lotion to right gluteal area to keep the area dry and off pressure per ID maps ran through Dr. Brumfield office Discharge Disposition: TRANSFER TO SNF/ECF
== END 2018-10-19 11:35 ==
LOC: EC 07:55 → INTOOBSV 10:49 → 3NMEDONC 10:49 → 4SSUR 13:09
PROVIDERS: ADMIT Internal Medicine; ATTEND Internal Medicine
DX: G35 Multiple sclerosis (principal); T83.518A Infection and inflammatory reaction due to other urinary catheter, initial encounter; N39.0 Urinary tract infection, site not specified; N17.9 Acute kidney failure, unspecified; R00.1 Bradycardia, unspecified; L97.419 Non-pressure chronic ulcer of right heel and midfoot with unspecified severity; E11.621 Type 2 diabetes mellitus with foot ulcer; E11.51 Type 2 diabetes mellitus with diabetic peripheral angiopathy without gangrene; E78.5 Hyperlipidemia, unspecified; I10 Essential (primary) hypertension; I25.2 Old myocardial infarction; M19.90 Unspecified osteoarthritis, unspecified site; N31.9 Neuromuscular dysfunction of bladder, unspecified; L89.322 Pressure ulcer of left buttock, stage 2; L89.159 Pressure ulcer of sacral region, unspecified stage; G89.29 Other chronic pain; M54.9 Dorsalgia, unspecified; L40.9 Psoriasis, unspecified; F31.9 Bipolar disorder, unspecified; E86.0 Dehydration; E87.1 Hypo-osmolality and hyponatremia; J44.9 Chronic obstructive pulmonary disease, unspecified; F17.200 Nicotine dependence, unspecified, uncomplicated; Z95.5 Presence of coronary angioplasty implant and graft; Z86.14 Personal history of Methicillin resistant Staphylococcus aureus infection; Z87.440 Personal history of urinary (tract) infections; Z87.442 Personal history of urinary calculi; Z79.02 Long term (current) use of antithrombotics/antiplatelets; Z79.899 Other long term (current) drug therapy; Z79.4 Long term (current) use of insulin; Z79.1 Long term (current) use of non-steroidal anti-inflammatories (NSAID); Z79.82 Long term (current) use of aspirin; Z99.3 Dependence on wheelchair; Z88.8 Allergy status to other drugs, medicaments and biological substances; Z74.01 Bed confinement status; Z80.6 Family history of leukemia
CPT/HCPCS: 96361 ×2; 96366 ×2; 96367; 96372 ×2; 96376; 96365; 99285; 36415; 93005; 97162; 97165; 80053 ×3; 82550; 83605; 83735; 85025 ×3; 85610; 85730; 81001; 87040; 87070; 87086; 87205; 87075; 87077; 87186; 71046; G0378 ×4; S0138 ×2; J2930 ×3; J1650 ×2; J0696 ×3

== ENCOUNTER → 2019-02-13 | Outpatient (CLI) | payer MEDICARE, OTHER ==
[2019-02-13 10:38] LABS: African American GFR (CKD) >90 (>60 ml/min/1.73 sqM); Blood Urea Nitrogen 36 mg/dL (9-20); Non-African American GFR(CKD) >90 (>60 ml/min/1.73 sqM)
--- NOTE | 2019-02-13 13:02 | CT ---
EXAMINATION TYPE: CT abdomen pelvis w con DATE OF EXAM: 02/13/2019 COMPARISON: 06/30/2018 HISTORY: Renal kidney stone CT DLP: 877.50 mGycm Automated exposure control for dose reduction was used. TECHNIQUE: Helical acquisition of images was performed from the lung bases through the pelvis. CONTRAST: Performed with Oral Contrast and with IV Contrast, patient injected with 100 ml mL of Isovue 300. FINDINGS: LUNG BASES: Redemonstration of linear subsegmental atelectasis of the bilateral lung bases, similar t o prior. Small hiatal hernia. Trace pericardial effusion. LIVER/GB: Redemonstration of hypoattenuating liver lesion at the superior and anterior right hepatic lobe measuring up to 1.3 cm appearing stable when compared to 05/22/2018. Additional area of fatty in filtration is seen near the falciform ligament. Gallbladder appears normal. PANCREAS: No significant abnormality is seen. SPLEEN: No significant abnormality is seen. ADRENALS: No significant abnormality is seen. KIDNEYS: Mildly delayed nephrogram on the left. Nonobstructive bilateral renal calculi. No hydronephr osis. Bilateral mild renal atrophy. Similar appearance of hypoattenuating cortically based oval lesio n in the mid pole of the left kidney measuring up to 0.6 cm and demonstrating approximately 30 Hounsf [place]eld units. There are multiple large calculi seen within the left distal ureter with the largest calculus seen me asuring up to 1.2 cm and best seen on image 83. Mild mid and distal ureteral dilatation. 4 catheter i s seen within the urinary bladder. No evidence of distal right ureteral calcification. Tiny calculi a re seen in the bilateral proximal ureters measuring less than 3 mm. FREE AIR: No free air is visualized. RETROPERITONEAL ADENOPATHY: None visualized REPRODUCTIVE ORGANS: No significant abnormality is seen URINARY BLADDER: Espinosa catheter is within the urinary bladder. PELVIC ADENOPATHY: None visualized. OSSEOUS STRUCTURES: Grossly intact. Degenerative changes of the bilateral hips. BOWEL: No significant abnormality is seen. OTHER: Redemonstration of infrarenal abdominal aortic aneurysm measuring up to 3.3 cm with peripheral areas of plaque and intramural hematoma. IMPRESSION: 3 large distal left ureteral calculi with proximal and distal ureteral dilatation and perinephric str anding. Largest calculus measures up to 1.2 cm. No significant hydronephrosis, but slightly delayed n ephrogram suggestive of mild obstruction. Multiple bilateral nonobstructive renal calculi. Small calculi in the dependent proximal ureters measuring up to 3 mm. Stable size of abdominal aortic aneurysm. Incompletely characterized liver lesion in the anterior and superior right hepatic lobe. If further e valuation is required, MRI liver protocol may be obtained.
== END | disposition home or self-care (01) ==
LOC: RADCTMAIN 09:44
PROVIDERS: ATTEND Urology
DX: N20.2 Calculus of kidney with calculus of ureter (principal); I71.4 Abdominal aortic aneurysm, without rupture; K76.9 Liver disease, unspecified
CPT/HCPCS: 82565; 84520; 74177; 36415; Q9967